=== PATIENT | female | born 1960 | race Caucasian/White ===

== ENCOUNTER 2021-04-25 10:18 | Outpatient (REF) | payer MEDICARE, MEDICAID, SELFPAY ==
[2021-04-25 10:21] LABS: MANUAL DIFF FLAG NO
[2021-04-25 10:53] LABS: Basophils Absolute Auto 0.1 X10*3/uL (0.0-0.2); Basophils Percent Auto 0.9 % (0-2); Eosinophils Absolute Auto 0.1 X10*3/uL (0.0-0.4); Eosinophils Percent Auto 1.5 % (0-4); Hematocrit 44.7 % (37.0-47.0); Hemoglobin 14.6 g/dl (12.0-16.0); Imm Gran Abs Auto 0.02 X10*3/uL (0.00-0.03); Imm Gran Pct Auto 0.3 % (0.0-0.4); Lymphocytes Absolute Auto 1.7 X10*3/uL (1.2-4.9); Lymphocytes Percent Auto 29.9 % (20-40); Mean Corpuscular HGB Conc 32.7 g/dl (31.0-35.0); Mean Corpuscular Hemoglobin 30.9 pg (27.0-33.0); Mean Corpuscular Volume 94.7 fL (80.0-98.0); Mean Platelet Volume 10.3 fL (9.4-12.3); Monocytes Absolute Auto 0.5 X10*3/uL (0.1-1.2); Monocytes Percent Auto 8.6 % (2-11); Neutrophils Absolute Auto 3.4 x10*3/uL (2.0-8.3); Neutrophils Percent Auto 58.8 % (45-73); Platelet Count 296 X10*3/uL (160-400); Red Blood Count 4.72 X10*6/uL (4.20-5.50); Red Cell Distribution Width 12.9 % (11.0-16.0); White Blood Count 5.8 X10*3/uL (4.8-10.8)
[2021-04-25 11:03] LABS: Appearance Urine CLEAR; Color Urine YELLOW; Glucose Urine UA NEG (NEG); Leukocyte Esterase Urine NEG (NEG); Nitrite Urine NEG (NEG); Specific Gravity - Urine 1.025 (1.005-1.025); Urine Blood 2+ (NEG); Urine Ketones NEG (NEG); Urine Protein NEG (NEG-TRACE)
[2021-04-25 11:19] LABS: Mucus Urine 2+ /LPF; Squamous Epithelial Cell Urine 3+ /LPF; WBC Urine 0-2 /HPF (0-4)
[2021-04-25 11:20] LABS: Bacteria Urine 1+ /LPF
[2021-04-25 11:21] LABS: Alanine Aminotransferase 17 U/L (0-31); Albumin Level 4.1 g/dL (3.5-5.0); Alkaline Phosphatase 86 U/L (39-117); Anion Gap 13 (12-20); Aspartate Amino Transferase 19 U/L (5-31); Bilirubin Total 0.5 mg/dL (0.0-1.0); Blood Urea Nitrogen 10 mg/dL (9-16); Calcium 9.6 mg/dL (8.4-10.2); Carbon Dioxide 27 mmol/L (22-29); Chloride 105 mmol/L (96-108); Cholesterol 243 mg/dL; Estimated Glomerular Filt Rate > 60; Glucose Fasting 103 mg/dL (60-99); HDL Cholesterol 59 mg/dL; Iron 69 mcg/dL (30-160); LDL Cholesterol Calculated 165 mg/dl; Percent Iron Saturation 19 % (15-50); Potassium 4.9 mmol/L (3.3-5.1); Sodium 140 mmol/L (135-145); Total Iron Binding Capacity 355 mcg/dL (228-428); Total Protein 6.7 g/dL (6.5-8.0); Triglycerides 99 mg/dL; Unsaturated Iron Binding 286 ug/dL
== END 2021-04-25 10:19 | disposition home or self-care (01) ==
LOC: HO.LNP 10:18
PROVIDERS: PCP Internal Medicine; Visit Provider Internal Medicine
DX: D50.9 Iron deficiency anemia, unspecified (principal); J45.21 Mild intermittent asthma with (acute) exacerbation; G25.0 Essential tremor; M85.80 Other specified disorders of bone density and structure, unspecified site
CPT/HCPCS: 80053; 80061; 81001; 81003; 83540; 85025

== ENCOUNTER 2021-08-10 12:23 | Outpatient (REF) | payer MEDICARE, MEDICAID, SELFPAY ==
--- NOTE | ~2021-08-10 | MM_ITS ---
EXAMINATION: BONE DENSITOMETRY CLINICAL INDICATION: History of osteopenia. Other specified disorders of bone density and structure. Postmenopausal. COMPARISON: Baseline BD dated 10/23/2018. TECHNIQUE: Using a [employer] DXA System (software version: 13.1) manufactured by [employer], dual-energy x-ray absorptiometry was performed of the lumbar spine and left hip. The images are of good technical quality. Summary results are attached. FINDINGS: AP SPINE L1-L4: Current: BMD 0.939 g/cm2, Z-score -0.6, T-score -2.0, osteopenia, 4.6% decrease from baseline (<5% change is not significant). Baseline: BMD 0.984 g/cm2. LEFT FEMUR, NECK: Current: BMD 0.696 g/cm2, Z-score -1.1, T-score -2.5, osteoporosis. Baseline: BMD 0.768 g/cm2. LEFT FEMUR, TOTAL: Current: BMD 0.807 g/cm2, Z-score -0.6, T-score -1.6, osteopenia, 7.1% decrease from baseline (<5% change is not significant). Baseline: BMD 0.869 g/cm2. IDENTIFIED RISK FACTORS: Tobacco user, (current smoker). Low calcium intake. History of fracture, (adult). Menopause. HISTORY OF FRACTURE: Other fractures, (ribs). MEDICATIONS: None listed. MM/XR DEXA axial skeleton IMPRESSION: 1. DIAGNOSIS: Osteoporosis based on the lowest T-score value of -2.5 in the femoral neck applying World Health Organization criteria. 2. 10-YEAR FRACTURE RISK PREDICTION, FRAX: According to the guidelines, FRAX calculation should only be performed on patients in the osteopenia bone density category. Therefore, FRAX was not performed on this patient. 3. Treatment Recommendations: NOF guidelines recommend consideration for treatment in postmenopausal women and men age 50 and older presenting with the following: -A hip or vertebral (clinical or morphometric) fracture. -T-score less than or equal to -2.5 at the femoral neck or spine after appropriate evaluation to exclude secondary causes. -Low bone mass at the hip or spine and a 10-year fracture probability by FRAX of greater than or equal to 3% for hip fracture or greater than or equal to 20% for major osteoporotic fracture based on the [place] adapted WHO algorithm. 4. Other Recommendations: All treatment decisions require clinical judgment and consideration of individual patient factors, including patient preferences, comorbidities, previous drug use, risk factors not captured in the FRAX model (e.g. frailty, falls, vitamin D deficiency, increased bone turnover, interval significant decline in bone density) and possible under or overestimation of fracture risk by FRAX. Additional medical evaluation for secondary cause of low bone mineral density may be appropriate. FUTURE SCAN RECOMMENDATION: People with diagnosed cases of osteoporosis or at high risk for fracture should have regular bone mineral density tests. For patients eligible for Medicare, routine testing is allowed once every 2 years. The testing frequency can be increased to one year for patients who have rapidly progressing disease, those who are receiving or discontinuing medical therapy to restore bone mass, or have additional risk factors.
--- NOTE | ~2021-08-10 | MM_ITS ---
EXAMINATION: MM SCREENING DIGITAL BREAST TOMOSYNTHESIS, BILATERAL CLINICAL INFORMATION: Screening. Asymptomatic. The lifetime risk of breast cancer based on the Tyrer-Cuzick Model is 8%. COMPARISON: Mammography: 10/23/2018, 02/18/2015 TECHNIQUE: Digital breast tomosynthesis is performed in both the craniocaudal and mediolateral oblique views along with computer-aided detection (CAD). Synthesized 2D images are generated from the tomosynthesis. FINDINGS: There are scattered areas of fibroglandular density (ACR BI-RADS breast composition Category b). There are no significant masses, abnormal calcifications, or other abnormalities. Parenchymal pattern is similar to prior studies. The axilla and skin contours are unremarkable. MM/MM tomosynthesis screening BI IMPRESSION: No mammographic evidence of malignancy. ASSESSMENT: BI-RADS 1: Negative RECOMMENDATION: Routine annual mammography screening. This patient's information was entered into a reminder system with a target due date for their next mammogram.
== END 2021-08-10 12:24 | disposition home or self-care (01) ==
LOC: HO.MAMMO 12:23
PROVIDERS: PCP Internal Medicine; Visit Provider Internal Medicine
DX: Z12.31 Encounter for screening mammogram for malignant neoplasm of breast (principal); Z13.820 Encounter for screening for osteoporosis; Z78.0 Asymptomatic menopausal state; F17.200 Nicotine dependence, unspecified, uncomplicated; M81.0 Age-related osteoporosis without current pathological fracture; Z87.81 Personal history of (healed) traumatic fracture
CPT/HCPCS: 77063; 77067; 77080

== ENCOUNTER 2021-10-13 12:02 | Outpatient (REF) | payer MEDICARE, MEDICAID, SELFPAY ==
[2021-10-13 12:04] LABS: MANUAL DIFF FLAG NO
[2021-10-13 12:10] LABS: Basophils Absolute Auto 0.1 X10*3/uL (0.0-0.2); Basophils Percent Auto 1.1 % (0-2); Eosinophils Absolute Auto 0.1 X10*3/uL (0.0-0.4); Eosinophils Percent Auto 2.6 % (0-4); Hematocrit 43.6 % (37.0-47.0); Hemoglobin 14.1 g/dl (12.0-16.0); Imm Gran Abs Auto 0.03 X10*3/uL (0.00-0.03); Imm Gran Pct Auto 0.5 % (0.0-0.4); Lymphocytes Absolute Auto 1.8 X10*3/uL (1.2-4.9); Lymphocytes Percent Auto 33.4 % (20-40); Mean Corpuscular HGB Conc 32.3 g/dl (31.0-35.0); Mean Corpuscular Hemoglobin 31.3 pg (27.0-33.0); Mean Corpuscular Volume 96.9 fL (80.0-98.0); Mean Platelet Volume 10.2 fL (9.4-12.3); Monocytes Absolute Auto 0.6 X10*3/uL (0.1-1.2); Monocytes Percent Auto 10.8 % (2-11); Neutrophils Absolute Auto 2.8 x10*3/uL (2.0-8.3); Neutrophils Percent Auto 51.6 % (45-73); Platelet Count 268 X10*3/uL (160-400); Red Cell Distribution Width 13.4 % (11.0-16.0); White Blood Count 5.5 X10*3/uL (4.8-10.8)
[2021-10-13 12:27] LABS: Iron 74 mcg/dL (30-160); Percent Iron Saturation 22 % (15-50); Total Iron Binding Capacity 342 mcg/dL (228-428); Unsaturated Iron Binding 268 ug/dL
== END 2021-10-13 12:03 | disposition home or self-care (01) ==
LOC: HO.LNP 12:02
PROVIDERS: Visit Provider Internal Medicine
DX: Z13.89 Encounter for screening for other disorder (principal)
CPT/HCPCS: 83540; 85025

== ENCOUNTER → 2021-11-09 09:27 | Outpatient (BNVA) | payer MEDICARE, MEDICAID, SELFPAY | PROVIDERS: PCP Internal Medicine; Referring Provider Internal Medicine; Visit Provider Internal Medicine Gastroenterology | DX: K57.92 Diverticulitis of intestine, part unspecified, without perforation or abscess without bleeding (principal); K58.9 Irritable bowel syndrome, unspecified; Z87.19 Personal history of other diseases of the digestive system; Z98.890 Other specified postprocedural states | CPT/HCPCS: 99202 ==

== ENCOUNTER → 2021-11-17 11:25 | Outpatient (BNVA) | payer MEDICARE, MEDICAID, SELFPAY | PROVIDERS: PCP Internal Medicine; Visit Provider Internal Medicine Endocrinology, Diabetes & Metabolism | DX: M81.0 Age-related osteoporosis without current pathological fracture (principal); D35.00 Benign neoplasm of unspecified adrenal gland | CPT/HCPCS: 99202 ==

== ENCOUNTER 2021-12-06 12:35 | Outpatient (REF) | payer OTHER, MEDICAID, SELFPAY ==
[2021-12-06 13:18] LABS: Anion Gap 13 (12-20); Blood Urea Nitrogen 8 mg/dL (9-16); Calcium 9.2 mg/dL (8.4-10.2); Carbon Dioxide 25 mmol/L (22-29); Chloride 104 mmol/L (96-108); Estimated Glomerular Filt Rate > 60; Glucose Random 98 mg/dL (60-115); Phosphorus 4.1 mg/dL (2.7-4.5); Potassium 4.3 mmol/L (3.3-5.1); Sodium 138 mmol/L (135-145)
[2021-12-06 13:40] LABS: Free T4 (Free Thyroxine) 0.92 ng/dL (0.71-1.85); Thyroid Stimulating Hormone 2.58 uIU/mL (0.32-4.0)
[2021-12-06 14:23] LABS: Cortisol Random 5.1 ug/dL
[2021-12-08 07:26] LABS: DHEA Sulfate 234 mcg/dL (9-118)
[2021-12-09 10:16] LABS: Prot Elec - Albumin 4.3 g/dL (3.8-4.8); Prot Elec - Alpha1 0.3 g/dL (0.2-0.3); Prot Elec - Alpha2 0.8 g/dL (0.5-0.9); Prot Elec - Beta 1 0.4 g/dL (0.4-0.6); Prot Elec - Beta 2 0.3 g/dL (0.2-0.5); Prot Elec - Gamma 0.8 g/dL (0.8-1.7); Prot Elec - Total Protein 6.9 g/dL (6.1-8.1)
[2021-12-12 09:32] LABS: Metanephrine, Free 34 pg/mL (<=57); Normetanephrines, Free 76 pg/mL (<=148); Total Metanephrine, Free 110 pg/mL (<=205)
== END 2021-12-06 12:36 | disposition home or self-care (01) ==
LOC: HO.LAB 12:35
PROVIDERS: PCP Internal Medicine; Visit Provider Internal Medicine Endocrinology, Diabetes & Metabolism
DX: M81.0 Age-related osteoporosis without current pathological fracture (principal); D35.00 Benign neoplasm of unspecified adrenal gland
CPT/HCPCS: 80048; 82533; 82627; 83835; 84100; 84165; 84439; 84443; 86335

== ENCOUNTER 2021-12-11 08:36 | Outpatient (REF) | payer OTHER, MEDICAID, SELFPAY ==
[2021-12-11 10:09] LABS: Total Volume 24 Hour Urine 725 mL
[2021-12-11 10:20] LABS: Creatinine, 24Hr Urine 0.6 G/Day (1.0-2.0); Creatinine, mg/dL 87.45
[2021-12-13 18:21] LABS: Calcium, 24 Hr Urine 72 mg/24 h; Calcium/Creatinine Ratio 114 mg/g creat (30-275); Creatinine 24Hr Urine 0.63 g/24 h (0.50-2.15)
[2021-12-20 14:56] LABS: Dexamethasone 430 ng/dL
== END 2021-12-11 08:37 | disposition home or self-care (01) ==
LOC: HO.LAB 08:36
PROVIDERS: PCP Internal Medicine; Referring Provider Urology; Visit Provider Internal Medicine Endocrinology, Diabetes & Metabolism
DX: M81.0 Age-related osteoporosis without current pathological fracture (principal); D35.00 Benign neoplasm of unspecified adrenal gland
CPT/HCPCS: 36415; 80299; 82340; 82570

== ENCOUNTER 2021-12-13 10:00 | Outpatient (REF) | payer OTHER, MEDICAID, SELFPAY ==
--- NOTE | ~2021-12-13 | CT_ITS ---
EXAMINATION: CT ABDOMEN WITHOUT CONTRAST CLINICAL INFORMATION: Benign adrenal neoplasm. COMPARISON: Abdominal ultrasound dated 08/08/2017. TECHNIQUE: Contiguous axial thin section helical images of the abdomen were performed without contrast. The data set was reformatted in the coronal and sagittal planes and reviewed on an independent workstation. This CT examination was performed using dose optimization techniques as appropriate, variously including the following: *Automated exposure control *Adjustment of mA and/or kV according to patient size (this includes techniques or standardized protocols for targeted exams where dose is matched to indication/reason for exam; i.e. extremities or head) *Use of iterative reconstruction technique DLP: 282 mGy-cm FINDINGS: LUNG BASES: The visualized lung bases are unremarkable. LIVER, GALLBLADDER, AND BILIARY TREE: The liver is normal in size, shape, and attenuation. No focal hepatic lesion or biliary ductal dilatation is present. The gallbladder is unremarkable with no evidence of radiopaque gallstones, gallbladder wall thickening, or obvious pericholecystic inflammatory changes. PANCREAS: Unremarkable SPLEEN: Unremarkable ADRENAL GLANDS: Centrally within the right adrenal gland (3:11), there is a 1.0 x 1.0 cm nodule, with precontrast Hounsfield value of -23.7 units. Within the anterior limb of the left adrenal gland (3:13), there is a 1.3 x 0.9 cm nodule, with precontrast Hounsfield value of -8.7 units. KIDNEYS AND URETERS: The kidneys are normal in size, shape, and attenuation. No hydronephrosis, hydroureter, or calculi seen. No perinephric stranding. GASTROINTESTINAL TRACT: Mild distal esophageal wall thickening is questioned. The small and large bowel are unremarkable. The appendix is unremarkable. ABDOMINAL WALL: There is a tiny fat-containing umbilical hernia. LYMPH NODES: Normal VASCULAR: There is moderate aortoiliac atherosclerotic calcification. No abdominal aortic aneurysm is seen. OSSEOUS STRUCTURES: Unremarkable CT/CT abdomen wo con IMPRESSION: 1. Tiny benign, fat-containing bilateral adrenal adenomas are noted, as detailed above. No imaging follow-up is recommended. 2. There is equivocal distal esophageal wall thickening. If of continued clinical concern, this could be further evaluated with a barium swallow. Fleischner guidelines were followed.
== END 2021-12-13 10:01 | disposition home or self-care (01) ==
LOC: HO.CT 10:00
PROVIDERS: PCP Internal Medicine; Visit Provider Internal Medicine Endocrinology, Diabetes & Metabolism
DX: D35.00 Benign neoplasm of unspecified adrenal gland (principal)
CPT/HCPCS: 74150

== ENCOUNTER 2022-01-01 11:00 | Day surgery (SDC) | payer OTHER, MEDICAID, SELFPAY ==
[2021-12-26 14:36] VITALS: BMI 26.4
--- NOTE | 2021-12-29 10:18 | HO.ANESPROP2 ---
Documented by User: Thuy Christiansen NP 12/29/21 10:19 HPI - Anesthesia Eval Consult details Narrative: 61yo F for Upper Endoscopy and Colonoscopy PMFSH Active Problems Active Problems: All Active Problems (Updated 12/26/21 @ 14:34 by Riri Salazar RN) Acute diverticulitis (Acute) IBS (irritable bowel syndrome) (Acute) Past Medical History Medical History Asthma Essential tremor GERD (gastroesophageal reflux disease) Hx of complications due to general anesthesia Osteopenia RLS (restless legs syndrome) Family History Family History Father HTN (hypertension) Mother Diabetes Cancer Surgical History Surgical History History of esophagogastroduodenoscopy (EGD) History of meniscectomy of left knee History of repair of hiatal hernia Hx of arthroscopy Hx of carpal tunnel repair Hx of colonoscopy Social History Social History (Updated 01/01/22 @ 13:[address] MD) Household Members: Spouse and Children Alcohol intake: current Alcohol intake frequency: a few times a month Patient Tobacco Use Status: Current everyday Tobacco user Tobacco use type: Cigarette Cigarette Packs Per Day: 0.75 Cigarettes Per Day: 15 Smoked in Last 30 Days: Yes Use of substances other than those prescribed or required for medical reasons: No Are you DNR?: No Advance Directives: No Advance Directives Information Provided: Yes Meds Allergies Allergy/AdvReac Type Severity Reaction Status Date / Time iron [From VENOFER] Allergy Severe SWELLING Verified 11/17/21 11:33 iron infusion Allergy Severe hives Uncoded 12/26/21 14:26 Home Medications Medication Instructions Recorded Confirmed Last Taken Type albuterol sulfate 90 mcg/actuation 2 puff PO Q4H PRN Shortness Of 11/09/21 12/26/21 Unknown History aerosol inhaler (Ventolin HFA) Breath clonazepam 0.5 mg tablet 0.5 mg PO BID PRN Anxiety 11/09/21 12/26/21 Unknown History fluticasone furoate 200 1 ea inhalation DAILY 11/09/21 12/26/21 Unknown History mcg-vilanterol 25 mcg/dose inhalation powder (Breo Ellipta) gabapentin 300 mg capsule 300 mg PO BEDTIME 11/09/21 12/26/21 Unknown History ropinirole 1 mg tablet 1 mg PO TID 11/09/21 12/26/21 01/01/22 History Exam Exam Date and Time: December 29, 2021 1018 Height,Weight and Vital Signs: Height 5 ft Weight 61.235 kg Pertinent Lab Results Pertinent Lab Results: Laboratory Tests 10/13/21 12/06/21 07:30 12:51 WBC 5.5 Hgb 14.1 Hct 43.6 Plt Count 268 Sodium 138 Potassium 4.3 Chloride 104 Carbon Dioxide 25 BUN 8 L Creatinine 0.69 Assessment and Plan Assessment Anesthesia Assessment: Chart Reviewed Documented by User: Maxine Street MD 01/01/22 13:35 PMF Active Problems Active Problems: All Active Problems (Updated 12/26/21 @ 14:34 by Riri Salazar RN) Acute diverticulitis (Acute) IBS (irritable bowel syndrome) (Acute) Smoker Gerd, no meds since ?paraesophageal hernia repair Past Medical History Medical History Asthma Essential tremor GERD (gastroesophageal reflux disease) Hx of complications due to general anesthesia Osteopenia RLS (restless legs syndrome) Family History Family History Father HTN (hypertension) Mother Diabetes Cancer Family history of problems with anesthesia: No Surgical History Surgical History History of esophagogastroduodenoscopy (EGD) History of meniscectomy of left knee History of repair of hiatal hernia Hx of arthroscopy Hx of carpal tunnel repair Hx of colonoscopy History of Problems with Anesthesia: Yes (Slow awakening) Social History Social History (Updated 01/01/22 @ 13:[address] MD) Household Members: Spouse and Children Alcohol intake: current Alcohol intake frequency: a few times a month Patient Tobacco Use Status: Current everyday Tobacco user Tobacco use type: Cigarette Cigarette Packs Per Day: 0.75 Cigarettes Per Day: 15 Smoked in Last 30 Days: Yes Use of substances other than those prescribed or required for medical reasons: No Are you DNR?: No Advance Directives: No Advance Directives Information Provided: Yes Meds Allergies Allergy/AdvReac Type Severity Reaction Status Date / Time iron [From VENOFER] Allergy Severe SWELLING Verified 11/17/21 11:33 iron infusion Allergy Severe hives Uncoded 12/26/21 14:26 Home Medications Medication Instructions Recorded Confirmed Last Taken Type albuterol sulfate 90 mcg/actuation 2 puff PO Q4H PRN Shortness Of 11/09/21 12/26/21 Unknown History aerosol inhaler (Ventolin HFA) Breath clonazepam 0.5 mg tablet 0.5 mg PO BID PRN Anxiety 11/09/21 12/26/21 Unknown History fluticasone furoate 200 1 ea inhalation DAILY 11/09/21 12/26/21 Unknown History mcg-vilanterol 25 mcg/dose inhalation powder (Breo Ellipta) gabapentin 300 mg capsule 300 mg PO BEDTIME 11/09/21 12/26/21 Unknown History ropinirole 1 mg tablet 1 mg PO TID 11/09/21 12/26/21 01/01/22 History Exam Height,Weight and Vital Signs: Height 5 ft Weight 61.235 kg Vital Signs Temp Pulse Resp BP Pulse Ox O2 Del Method 97.5 F 76 18 136/76 97 01/01/22 11:14 01/01/22 11:14 01/01/22 11:14 01/01/22 11:14 01/01/22 11:14 01/01/22 11:14 Airway Mallampati Class: II TM Dist: >3cm Neck ROM: Full Loose/Missing/Broken Teeth: No (Denies loose or broken teeth) Heart: RRR Lungs: Wheezes Right lung. Denies recent cough/cold Other: Lungs CTAB following duoneb treatment Assessment and Plan Assessment Anesthesia Assessment: Anesthesia Plan Discussed Final Anesthetic Review Family History of Problems with Anesthesia: No History of Problems with Anesthesia: Yes (Slow awakening) Patient Risk: Intermediate Procedure Risk: Low Assessment/Block/Sedation in SS: Assess/Block/Sedation-SS Documented by User: Carmella Conley MD 01/01/22 12:59 PMFSH Past Medical History Medical History Asthma Essential tremor GERD (gastroesophageal reflux disease) Hx of complications due to general anesthesia Osteopenia RLS (restless legs syndrome) Family History Family History Father HTN (hypertension) Mother Diabetes Cancer Surgical History Surgical History History of esophagogastroduodenoscopy (EGD) History of meniscectomy of left knee History of repair of hiatal hernia Hx of arthroscopy Hx of carpal tunnel repair Hx of colonoscopy Social History Social History (Updated 01/01/22 @ 13:[address] MD) Household Members: Spouse and Children Alcohol intake: current Alcohol intake frequency: a few times a month Patient Tobacco Use Status: Current everyday Tobacco user Tobacco use type: Cigarette Cigarette Packs Per Day: 0.75 Cigarettes Per Day: 15 Smoked in Last 30 Days: Yes Use of substances other than those prescribed or required for medical reasons: No Are you DNR?: No Advance Directives: No Advance Directives Information Provided: Yes Meds Allergies Allergy/AdvReac Type Severity Reaction Status Date / Time iron [From VENOFER] Allergy Severe SWELLING Verified 11/17/21 11:33 iron infusion Allergy Severe hives Uncoded 12/26/21 14:26 Home Medications Medication Instructions Recorded Confirmed Last Taken Type albuterol sulfate 90 mcg/actuation 2 puff PO Q4H PRN Shortness Of 11/09/21 12/26/21 Unknown History aerosol inhaler (Ventolin HFA) Breath clonazepam 0.5 mg tablet 0.5 mg PO BID PRN Anxiety 11/09/21 12/26/21 Unknown History fluticasone furoate 200 1 ea inhalation DAILY 11/09/21 12/26/21 Unknown History mcg-vilanterol 25 mcg/dose inhalation powder (Breo Ellipta) gabapentin 300 mg capsule 300 mg PO BEDTIME 11/09/21 12/26/21 Unknown History ropinirole 1 mg tablet 1 mg PO TID 11/09/21 12/26/21 01/01/22 History Assessment and Plan Final Anesthetic Review NPO: Yes ASA Class: II Final Preanesthetic Review: Meds/Allgs Chart Reviewed, Consent Obtained/Reviewed and Anes Risks/Benef Reviewed Patient Risk: Low Procedure Risk: Intermediate Anesthetic Plan Anesthetic Plan: MAC: Disposition: Standard PACU
[2022-01-01 11:14] VITALS: BP 136/76; PULSE 76; RESP 18; TEMP 36.4; O2SAT 97
[2022-01-01] MEDS: Lactated Ringers 1,000 ML 100 ML IVCONT (11:33)
--- NOTE | 2022-01-01 11:55 | MHC.SHP ---
Pre-Procedural Eval Section A Date of Service: 01/01/22 The patient is an INPATIENT: No The History & Physical has been completed within 30 days and I have reviewed it.: No Section B Chief Complaint: Diverticulitis of intestine,IBS Details of Present Illness: Colon cancer screen, passed episode of diverticulitis, abnormal CT scan of the stomach Relevant Social History: Tobacco Use Medical History: Significant History (GERD, asthma, RLS) History of Previous Operations: Relevant previous surgery/procedure and date(s) (History of esophagogastroduodenoscopy (EGD) History of meniscectomy of left knee History of repair of hiatal hernia Hx of arthroscopy Hx of carpal tunnel repair Hx of colonoscopy) Allergies: Allergies Allergy/AdvReac Type Severity Reaction Status Date / Time iron [From VENOFER] Allergy Severe SWELLING Verified 11/17/21 11:33 iron infusion Allergy Severe hives Uncoded 12/26/21 14:26 Review of Systems Sugical H&P ROS: Negative: Constitution, Cardiovascular, Respiratory and Gastrointestinal Exam Surgical H&P Exam: Normal: Heart, Normal: Lungs, Normal: Extremities and Normal: Abdomen Plan Diagnosis/Plan: Unchanged I have reviewed the history and physical and performed a pertinent physical examination on my patient. No changes have occurred unless specified.
--- NOTE | 2022-01-01 12:13 | PM.OP ---
Brief Operative Note Date of Service: 01/01/22 Pre-op diagnosis: Colon cancer screening, past episode of diverticulitis, abnormal CT scan of the stomach and esophagus Post-op diagnosis: other (GERD, gastritis, colon polyps, diverticulosis, hemorrhoids) Procedure: FLEXIBLE TRANSORAL UPPER GASTROINTESTINAL ENDOSCOPY WITH BIOPSIES AND COLONOSCOPY TILL CECUM WITH BIOPSIES, SNARE POLYPECTOMY, SUBMUCOSAL INJECTION, HEMOCLIP PLACEMENT UPPER ENDOSCOPY Consent: Indications for the procedure and potential complications of bleeding, perforation, reaction to medications and missed diagnosis were discussed with the patient and informed consent was obtained. Instrument: Olympus GIF H 190 mid size upper endoscope Monitoring: Vital signs and clinical assessment, continuous EKG monitoring, Pulse oximetry, Carbon Dioxide monitoring and blood pressure monitoring were done throughout the procedure. Procedure: The patient was placed in the left lateral decubitis position and pre-procedure medications were administered and a bite block was placed. The endoscope was inserted into the mouth and advanced under direct vision to the third part of duodenum. A careful inspection was made as the upper endoscope was withdrawn including a retroflexed examination of the proximal stomach; Findings and interventions are described below. Findings: Larynx: Normal Esophagus: GE junction at 35 cms. Irregular Z line with two healing erosions and a 1 cms tongue of possible Cole's - biopsied Stomach: Moderate gastric erythema. Biopsies were obtained. Grade 2 flap valve on retroflexed examination of the cardia. Duodenum: Mild duodenitis in the apex of the bulb and normal descending duodenum Intervention: Biopsies as noted above COLONOSCOPY PROCEDURE NOTE Consent: Indications for the procedure and potential complications of bleeding, perforation, reaction to medications and missed diagnosis were discussed with the patient and informed consent was obtained. Instrument: Olympus PCF H 190 L variable stiffness pediatric colonoscope Monitoring: Vital signs and clinical assessment, intermittent blood pressure monitoring, continuous EKG monitoring, Pulse oximetry and Carbon Dioxide monitoring were done throughout the procedure. Colon withdrawl time was 35 minutes. Procedure: The patient was placed in the left lateral decubitis position and pre-procedure medications were administered. After a digital rectal examination of the ano-rectum, the video colonoscope was inserted into the rectum and advanced through the colon to the cecum. The colonoscope was slowly withdrawn in a retrograde panoramic fashion and the colon mucosa was carefully examined including a retroflexed view of the rectum. Findings and interventions are described below. Procedure Difficulty: : Colon was long and tortuous and there was spasm and loop formation. No maneuvers were required. Findings: Terminal Ileum: Not evaluated Cecum: Normal Ascending Colon: A 2.5 to 3 cms flat polyp in the proximal AC at 80 cms. Polyp was raised with 7 cc of Orise solution and removed with a stiif snare. Polypectomy site was closed with a hemoclip and marked with Mirna ink. A 2nd 2 cm flat polyp in the mid ascending colon raised with 4 cc of Orise solution and removed with a hot snare. Transverse Colon: Normal Descending Colon: Moderate diverticulosis Sigmoid Colon: Severe diverticulosis with luminal narrowing Rectum: Normal Ano-rectum: Moderate internal hemorrhoids Colon preparation: Good Impression and Post Procedure Diagnosis: Endoscopy Findings: ESOPHAGUS: GE junction at 35 cms. Irregular Z line with two healing erosions and a 1 cms tongue of possible Cole's - biopsied STOMACH: Moderate gastric erythema. Biopsies were obtained. Colonoscopy Findings: Two large to medium sized polyps removed Moderate to severe diverticulosis seen in the left colon Moderate hemorrhoids on retroflexed exam. Plan: Await pathology results Patient to schedule a FU appointment in the GI Clinic with Katia Haji M.D. Repeat Colonoscopy interval based on path results - in 1 year if polyps are adenomatous (to check polypectomy site in the AC) and 10 years if polyps are hyperplastic. Pt needs GA for future colonoscopies since she was difficult to sedate and remained very restless and moved around on the strecher. Above findings were reviewed with the patient and GERD, colon polyps and diverticulosis handouts were given in the discharge area Surgeon: Katia Haji MD Anesthesia: MAC (Dr Conley) Was an Commanding Officer Garage used for this Procedure?: Yes Commanding Officer Garage: Jayden Andersen Estimated blood loss (mL): 0 Pathology: other (A- GASTRIC ANTRUM BXS R/O H. PYLORI B- DISTAL ESOPHAGUS BXS R/O COLE'S C- MID ASCENDING COLON POLYP O-RISE USED D- ASCENDING COLON POLYP AT 80CM O-RISE USED. E- LEFT COLON BXS R/O MICROSCOPIC) Condition: stable Disposition: PACU
[2022-01-01] MEDS: Albuterol/Iprat 2.5/0.5MG 3 ML AMPUL.NEB INHALE (12:14)
--- NOTE | 2022-01-01 12:18 | W.PM.OPN ---
Operative Note Operative Note Date of Service: 01/01/22 Narrative: Pre-op diagnosis: Colon cancer screening, past episode of diverticulitis, abnormal CT scan of the stomach and esophagus Post-op diagnosis:?other (GERD, gastritis, colon polyps, diverticulosis, hemorrhoids) Procedure: FLEXIBLE TRANSORAL UPPER GASTROINTESTINAL ENDOSCOPY WITH BIOPSIES AND COLONOSCOPY TILL CECUM WITH BIOPSIES, SNARE POLYPECTOMY, SUBMUCOSAL INJECTION, HEMOCLIP PLACEMENT UPPER ENDOSCOPY Consent:?Indications for the procedure and potential complications of bleeding, perforation, reaction to medications and missed diagnosis were discussed with the patient and informed consent was obtained. Instrument:?Olympus GIF H 190 mid size upper endoscope Monitoring: Vital signs and clinical assessment, continuous EKG monitoring, Pulse oximetry, Carbon Dioxide monitoring and blood pressure monitoring were done throughout the procedure. Procedure:?The patient was placed in the left lateral decubitis position and pre-procedure medications were administered and a bite block was placed. The endoscope was inserted into the mouth and advanced under direct vision to the third part of duodenum. A careful inspection was made as the upper endoscope was withdrawn including a retroflexed examination of the proximal stomach; Findings and interventions are described below. Findings: Larynx:? Normal Esophagus:?GE junction at 35 cms.? Irregular Z line with two healing erosions and a 1 cms tongue of possible Cole's - biopsied Stomach:?Moderate gastric erythema. Biopsies were obtained. Grade 2 flap valve on retroflexed examination of the cardia. Duodenum:?Mild duodenitis in the apex of the bulb and normal descending duodenum Intervention:?Biopsies as noted above COLONOSCOPY PROCEDURE NOTE Consent:?Indications for the procedure and potential complications of bleeding, perforation, reaction to medications and missed diagnosis were discussed with the patient and informed consent was obtained. Instrument:?Olympus PCF H 190 L variable stiffness pediatric colonoscope Monitoring:?Vital signs and clinical assessment, intermittent blood pressure monitoring, continuous EKG monitoring, Pulse oximetry and Carbon Dioxide monitoring were done throughout the procedure. Colon withdrawl time was 35 minutes. Procedure:?The patient was placed in the left lateral decubitis position and pre-procedure medications were administered. After a digital rectal examination of the ano-rectum, the video colonoscope was inserted into the rectum and advanced through the colon to the cecum. The colonoscope was slowly withdrawn in a retrograde panoramic fashion and the colon mucosa was carefully examined including a retroflexed view of the rectum. Findings and interventions are described below. Procedure Difficulty:?: Colon was long and tortuous and there was spasm and loop formation.? No maneuvers were required. Findings: Terminal Ileum: Not evaluated Cecum:? Normal Ascending Colon:??A 2.5 to 3 cms flat polyp in the proximal AC at 80 cms.? Polyp was raised with 7 cc of Orise solution and removed with a stiif snare.? Polypectomy site was closed with a hemoclip and marked with Mirna ink. A 2nd 2 cm flat polyp in the mid ascending colon raised with 4 cc of Orise solution and removed with a hot snare. Transverse Colon:??Normal Descending Colon:? Moderate diverticulosis Sigmoid Colon:??Severe diverticulosis with luminal narrowing Rectum:??Normal Ano-rectum:??Moderate internal hemorrhoids Colon preparation:? Good? Impression and Post Procedure Diagnosis: Endoscopy Findings: ESOPHAGUS: GE junction at 35 cms.? Irregular Z line with two healing erosions and a 1 cms tongue of possible Cole's - biopsied STOMACH: Moderate gastric erythema. Biopsies were obtained. Colonoscopy Findings: Two large to medium sized polyps removed Moderate to severe diverticulosis seen in the left colon Moderate hemorrhoids on retroflexed exam. Plan: Await pathology results Patient to schedule a FU appointment in the GI Clinic with Katia Haji M.D. Repeat Colonoscopy interval based on path results - in 1 year if polyps are adenomatous (to check polypectomy site in the AC) and 10 years if polyps are hyperplastic. Pt needs GA for future colonoscopies since she was difficult to sedate and remained very restless and moved around on the strecher during the procedure. Above findings were reviewed with the patient and GERD, colon polyps and diverticulosis handouts were given in the discharge area Surgeon: Katia Haji MD Anesthesia:?MAC (Dr Conley) Was an Broker Associate used for this Procedure?:?Yes Broker Associate:?Jayden Andersen Estimated blood loss (mL):?0 Pathology:?other (A- GASTRIC ANTRUM BXS ? R/O H. PYLORI? B- DISTAL ESOPHAGUS BXS? R/O COLE'S? C- MID ASCENDING COLON POLYP? O-RISE USED? D- ASCENDING COLON POLYP AT 80CM? O-RISE USED.? E- LEFT COLON BXS? R/O MICROSCOPIC) Condition:?stable Disposition:?PACU
[2022-01-01 13:26] VITALS: BP 125/66; PULSE 86; RESP 20; TEMP 36.2; O2SAT 99
[2022-01-01 13:41] VITALS: BP 125/69; PULSE 72; RESP 18; O2SAT 97
[2022-01-01 13:56] VITALS: BP 139/71; PULSE 67; RESP 18; TEMP 37; O2SAT 97
[2022-01-01 14:08] VITALS: BP 139/71; PULSE 68; RESP 18; O2SAT 97
== END 2022-01-01 15:27 | disposition home or self-care (01) ==
PROVIDERS: PCP Internal Medicine; Visit Provider Internal Medicine Gastroenterology
PROC: (CPT 45385; principal; 2022-01-01 13:50)
DX: Z12.11 Encounter for screening for malignant neoplasm of colon (principal); D12.2 Benign neoplasm of ascending colon; K57.30 Diverticulosis of large intestine without perforation or abscess without bleeding; K64.8 Other hemorrhoids; K58.9 Irritable bowel syndrome, unspecified; Z87.19 Personal history of other diseases of the digestive system; K29.50 Unspecified chronic gastritis without bleeding; K29.80 Duodenitis without bleeding; K21.9 Gastro-esophageal reflux disease without esophagitis; K44.9 Diaphragmatic hernia without obstruction or gangrene; G25.0 Essential tremor; G25.81 Restless legs syndrome; M85.80 Other specified disorders of bone density and structure, unspecified site; J45.909 Unspecified asthma, uncomplicated; Z79.51 Long term (current) use of inhaled steroids; Z79.899 Other long term (current) drug therapy; Z88.8 Allergy status to other drugs, medicaments and biological substances; Z98.890 Other specified postprocedural states; F17.210 Nicotine dependence, cigarettes, uncomplicated
CPT/HCPCS: 45385; 45380; 45381; 43239; 88305; 88342; J2250; J3010

== ENCOUNTER → 2022-02-08 13:46 | Outpatient (BNVA) | payer OTHER, MEDICAID, SELFPAY | PROVIDERS: PCP Internal Medicine; Referring Provider Internal Medicine; Visit Provider Internal Medicine Gastroenterology | DX: K58.9 Irritable bowel syndrome, unspecified (principal); K57.92 Diverticulitis of intestine, part unspecified, without perforation or abscess without bleeding; K57.30 Diverticulosis of large intestine without perforation or abscess without bleeding; D12.6 Benign neoplasm of colon, unspecified; Z86.010 Personal history of colon polyps; Z98.890 Other specified postprocedural states | CPT/HCPCS: 99212 ==

== ENCOUNTER → 2022-03-16 11:14 | Outpatient (BNVA) | payer OTHER, MEDICAID, SELFPAY | PROVIDERS: PCP Internal Medicine; Visit Provider Internal Medicine Endocrinology, Diabetes & Metabolism | DX: M81.0 Age-related osteoporosis without current pathological fracture (principal); D35.00 Benign neoplasm of unspecified adrenal gland | CPT/HCPCS: 99212 ==

== ENCOUNTER 2022-04-12 11:06 | Outpatient (REF) | payer OTHER, MEDICAID, SELFPAY ==
[2022-04-16 17:41] LABS: Adrenocorticotropic Hormone 27 pg/mL (6-50)
== END 2022-04-12 11:07 | disposition home or self-care (01) ==
LOC: HO.LAB 11:06
PROVIDERS: PCP Internal Medicine; Visit Provider Internal Medicine Endocrinology, Diabetes & Metabolism
DX: D35.00 Benign neoplasm of unspecified adrenal gland (principal)
CPT/HCPCS: 36415; 82024

== ENCOUNTER 2022-04-26 10:35 | Outpatient (REF) | payer OTHER, MEDICAID, SELFPAY ==
[2022-04-26 10:37] LABS: MANUAL DIFF FLAG NO
[2022-04-26 10:49] LABS: Appearance Urine Cloudy; Color Urine Yellow; Glucose Urine UA Negative (Negative); Leukocyte Esterase Urine Negative (Negative); Nitrite Urine Negative (Negative); PH 5.5 (5.0-9.0); Specific Gravity - Urine 1.015 (1.005-1.025); UMIC TRIGGER UA YES; Urine Blood Moderate (2+) (Negative); Urine Ketones Negative (Negative); Urine Protein Negative (Neg-Trace)
[2022-04-26 10:56] LABS: Bacteria Urine 1+ (None Seen); Hyaline Casts Urine 0-2 /LPF (0-2); WBC Urine 0-5 /HPF (0-5)
[2022-04-26 10:57] LABS: Basophils Absolute Auto 0.1 X10*3/uL (0.0-0.2); Basophils Percent Auto 1.5 % (0-2); Eosinophils Absolute Auto 0.1 X10*3/uL (0.0-0.4); Eosinophils Percent Auto 2.5 % (0-4); Hematocrit 42.1 % (37.0-47.0); Hemoglobin 13.9 g/dl (12.0-16.0); Imm Gran Abs Auto 0.02 X10*3/uL (0.00-0.03); Imm Gran Pct Auto 0.4 % (0.0-0.4); Lymphocytes Absolute Auto 1.7 X10*3/uL (1.2-4.9); Lymphocytes Percent Auto 36.1 % (20-40); Mean Platelet Volume 10.1 fL (9.4-12.3); Monocytes Absolute Auto 0.4 X10*3/uL (0.1-1.2); Neutrophils Absolute Auto 2.4 x10*3/uL (2.0-8.3); Neutrophils Percent Auto 50.5 % (45-73); Platelet Count 271 X10*3/uL (160-400); Red Blood Count 4.34 X10*6/uL (4.20-5.50); Red Cell Distribution Width 13.2 % (11.0-16.0); White Blood Count 4.8 X10*3/uL (4.8-10.8)
[2022-04-26 11:12] LABS: Alanine Aminotransferase 14 U/L (0-31); Albumin Level 4.2 g/dL (3.5-5.0); Alkaline Phosphatase 76 U/L (39-117); Anion Gap 10 (12-20); Aspartate Amino Transferase 17 U/L (5-31); Bilirubin Total 0.3 mg/dL (0.0-1.0); Blood Urea Nitrogen 10 mg/dL (9-16); Calcium 9.5 mg/dL (8.4-10.2); Carbon Dioxide 29 mmol/L (22-29); Chloride 102 mmol/L (96-108); Cholesterol 253 mg/dL; Estimated Glomerular Filt Rate > 60; Glucose Fasting 100 mg/dL (60-99); HDL Cholesterol 64 mg/dL; Iron 60 mcg/dL (30-160); LDL Cholesterol Calculated 169 mg/dl; Percent Iron Saturation 19 % (15-50); Potassium 4.5 mmol/L (3.3-5.1); Sodium 136 mmol/L (135-145); Total Iron Binding Capacity 324 mcg/dL (228-428); Total Protein 6.6 g/dL (6.5-8.0); Triglycerides 100 mg/dL; Unsaturated Iron Binding 264 ug/dL
== END 2022-04-26 10:36 | disposition home or self-care (01) ==
LOC: HO.LNP 10:35
PROVIDERS: Visit Provider Internal Medicine
DX: Z00.00 Encounter for general adult medical examination without abnormal findings (principal); D50.8 Other iron deficiency anemias
CPT/HCPCS: 80053; 80061; 81001; 83540; 85025

== ENCOUNTER 2022-07-11 | Outpatient (REF) | payer OTHER, MEDICAID, SELFPAY ==
[2022-07-21 19:03] LABS: Saliva Cortisol 0.15 mcg/dL
== END 2022-07-11 00:01 | disposition home or self-care (01) ==
LOC: HO.LNP
PROVIDERS: Visit Provider Internal Medicine Endocrinology, Diabetes & Metabolism
DX: D35.00 Benign neoplasm of unspecified adrenal gland (principal)
CPT/HCPCS: 82530

== ENCOUNTER 2022-07-12 09:22 | Outpatient (REF) | payer OTHER, MEDICAID, SELFPAY ==
[2022-07-12 09:55] LABS: Total Volume 24 Hour Urine 1700 mL
[2022-07-12 11:21] LABS: Creatinine, 24Hr Urine 0.8 G/Day (1.0-2.0); Creatinine, mg/dL 49.51
[2022-07-22 14:54] LABS: Cortisol Free, 24 Hr Urine 18.4 mcg/24 h (4.0-50.0); Creatinine, 24 Hr Urine 0.89 g/24 h (0.50-2.15); Total Volume, 24 Hr Urine 1700 mL
== END 2022-07-12 09:23 | disposition home or self-care (01) ==
LOC: HO.LNP 09:22
PROVIDERS: Visit Provider Internal Medicine Endocrinology, Diabetes & Metabolism
DX: D35.00 Benign neoplasm of unspecified adrenal gland (principal)
CPT/HCPCS: 82530; 82570

== ENCOUNTER → 2022-07-18 11:37 | Outpatient (BNVA) | payer OTHER, MEDICAID, SELFPAY | PROVIDERS: PCP Internal Medicine; Visit Provider Internal Medicine Endocrinology, Diabetes & Metabolism | DX: M81.0 Age-related osteoporosis without current pathological fracture (principal); D35.01 Benign neoplasm of right adrenal gland; D35.02 Benign neoplasm of left adrenal gland | CPT/HCPCS: 99212 ==

== ENCOUNTER → 2022-08-09 10:58 | Outpatient (BNVA) | payer OTHER, MEDICAID, SELFPAY | PROVIDERS: PCP Internal Medicine; Visit Provider Internal Medicine Gastroenterology | DX: K58.9 Irritable bowel syndrome, unspecified (principal); K57.92 Diverticulitis of intestine, part unspecified, without perforation or abscess without bleeding; Z86.010 Personal history of colon polyps | CPT/HCPCS: 99212 ==

== ENCOUNTER 2022-08-16 11:53 | Outpatient (REF) | payer OTHER, MEDICAID, SELFPAY ==
--- NOTE | ~2022-08-16 | MM_ITS ---
EXAMINATION: MM SCREENING DIGITAL BREAST TOMOSYNTHESIS, BILATERAL CLINICAL INFORMATION: Screening. Asymptomatic. The lifetime risk of breast cancer based on the Tyrer-Cuzick Model is 8.3%. COMPARISON: Mammography: August 10, 2021 and studies dating back to February 18, 2015 TECHNIQUE: Digital breast tomosynthesis is performed in both the craniocaudal and mediolateral oblique views along with computer-aided detection (CAD). Synthesized 2D images are generated from the tomosynthesis. FINDINGS: There are scattered areas of fibroglandular density (ACR BI-RADS breast composition Category b). There are no significant masses, abnormal calcifications, or other abnormalities. MM/MM tomosynthesis screening BI IMPRESSION: No significant changes from prior exam. ASSESSMENT: BI-RADS 1: Negative RECOMMENDATION: Routine annual mammography screening. This patient's information was entered into a reminder system with a target due date for their next mammogram.
== END 2022-08-16 11:54 | disposition home or self-care (01) ==
LOC: HO.MAMMO 11:53
PROVIDERS: PCP Internal Medicine; Visit Provider Internal Medicine
DX: Z12.31 Encounter for screening mammogram for malignant neoplasm of breast (principal)
CPT/HCPCS: 77063; 77067

== ENCOUNTER 2022-11-02 15:30 | Outpatient (REF) | payer OTHER, MEDICAID, SELFPAY ==
--- NOTE | ~2022-11-02 | US_ITS ---
EXAMINATION: US SOFT TISSUE LEFT WRIST CLINICAL INFORMATION: Left wrist contusion. COMPARISON: None TECHNIQUE: Linear transducer grayscale and color Doppler examination with attention to the region of the left wrist soft tissues. FINDINGS: No cystic or solid abnormality is seen. No focal fluid collection. The radial and ulnar veins are compressible. US/US extremity nonvascular IMPRESSION: 1. No soft tissue abnormality in the region of concern in the left wrist. If these findings persist or enlarge, short-term repeat targeted soft tissue ultrasound can be performed as clinically indicated to assess for change.
== END 2022-11-02 15:31 | disposition home or self-care (01) ==
LOC: HO.US 15:30
PROVIDERS: PCP Internal Medicine; Visit Provider Internal Medicine
DX: S60.212D Contusion of left wrist, subsequent encounter (principal); T14.8XXD Other injury of unspecified body region, subsequent encounter
CPT/HCPCS: 76882

== ENCOUNTER → 2022-11-14 11:39 | Outpatient (BNVA) | payer OTHER, MEDICAID, SELFPAY | PROVIDERS: PCP Internal Medicine; Visit Provider Internal Medicine Endocrinology, Diabetes & Metabolism | DX: M81.0 Age-related osteoporosis without current pathological fracture (principal); D35.00 Benign neoplasm of unspecified adrenal gland | CPT/HCPCS: 99212 ==

== ENCOUNTER 2023-01-07 06:28 | Day surgery (SDC) | payer OTHER, MEDICAID, SELFPAY ==
[2023-01-03 10:21] VITALS: BMI 25.5
--- NOTE | 2023-01-04 11:39 | HO.ANESPROP2 ---
Documented by User: Thuy Christiansen NP 01/04/23 11:40 HPI - Anesthesia Eval Consult details Narrative: 62yo F for Upper Endoscopy and Colonoscopy PMFSH Active Problems Active Problems: All Active Problems (Updated 08/09/22 @ 11:24 by Katia Haji MD) Acute diverticulitis (Acute) IBS (irritable bowel syndrome) (Acute) History of colon polyps (Acute) Vitamin D deficiency (Acute) Adrenal adenoma (Acute) Past Medical History Medical History Adrenal adenoma Asthma Essential tremor GERD (gastroesophageal reflux disease) Hx of complications due to general anesthesia Osteopenia RLS (restless legs syndrome) Family History Family History Father HTN (hypertension) Mother Diabetes Cancer Family history of problems with anesthesia: No Surgical History Surgical History (Updated 01/03/23 @ 10:00 by Riri Salazar RN) History of esophagogastroduodenoscopy (EGD) History of meniscectomy of left knee History of repair of hiatal hernia Hx of arthroscopy Hx of carpal tunnel repair Hx of colonoscopy History of Problems with Anesthesia: Yes (Slow awakening) Social History Social History Household Members: Spouse and Children Alcohol intake: current Alcohol intake frequency: holidays/special occasions only Patient Tobacco Use Status: Current everyday Tobacco user Tobacco use type: Cigarette Cigarette Packs Per Day: 0.75 Cigarettes Per Day: 15 Are you DNR?: No Advance Directives: No Advance Directives Information Provided: Yes Nutrition Risks: No Nutritional Risk Patient : No Meds Allergies Allergy/AdvReac Type Severity Reaction Status Date / Time iron [From VENOFER] Allergy Severe SWELLING Verified 11/14/22 11:43 iron infusion Allergy Severe hives Uncoded 11/14/22 11:43 Home Medications Medication Instructions Recorded Confirmed Last Taken Type albuterol sulfate 90 mcg/actuation 2 puff PO Q4H PRN Shortness Of 11/09/21 01/03/23 Unknown History aerosol inhaler (Ventolin HFA) Breath clonazepam 0.5 mg tablet 0.5 mg PO BID PRN Anxiety 11/09/21 01/03/23 Unknown History gabapentin 300 mg capsule 300 mg PO BEDTIME 11/09/21 01/03/23 Unknown History ropinirole 1 mg tablet 1 mg PO TID 11/09/21 01/03/23 01/07/23 History fluticasone furoate 200 1 ea inhalation DAILY 01/03/23 01/03/23 Unknown History mcg-vilanterol 25 mcg/dose inhalation powder (Breo Ellipta) albuterol sulfate 0.63 mg/3 mL 1 mg inhalation NEEDED PRN 01/07/23 01/07/23 01/07/23 History solution for nebulization Wheezing Exam Exam Date and Time: January 04, 2023 113 Height,Weight and Vital Signs: Height 5 ft 1 in Weight 61.235 kg Assessment and Plan Assessment Anesthesia Assessment: Chart Reviewed Final Anesthetic Review Family History of Problems with Anesthesia: No History of Problems with Anesthesia: Yes (Slow awakening) Documented by User: Dontrell Hernandez MD 01/07/23 07:29 [facility] Past Medical History Medical History Adrenal adenoma Asthma Essential tremor GERD (gastroesophageal reflux disease) Hx of complications due to general anesthesia Osteopenia RLS (restless legs syndrome) Family History Family History Father HTN (hypertension) Mother Diabetes Cancer Surgical History Surgical History (Updated 01/03/23 @ 10:00 by Riri Salazar RN) History of esophagogastroduodenoscopy (EGD) History of meniscectomy of left knee History of repair of hiatal hernia Hx of arthroscopy Hx of carpal tunnel repair Hx of colonoscopy Social History Social History Household Members: Spouse and Children Alcohol intake: current Alcohol intake frequency: holidays/special occasions only Patient Tobacco Use Status: Current everyday Tobacco user Tobacco use type: Cigarette Cigarette Packs Per Day: 0.75 Cigarettes Per Day: 15 Are you DNR?: No Advance Directives: No Advance Directives Information Provided: Yes Nutrition Risks: No Nutritional Risk Patient : No Meds Allergies Allergy/AdvReac Type Severity Reaction Status Date / Time iron [From VENOFER] Allergy Severe SWELLING Verified 11/14/22 11:43 iron infusion Allergy Severe hives Uncoded 11/14/22 11:43 Home Medications Medication Instructions Recorded Confirmed Last Taken Type albuterol sulfate 90 mcg/actuation 2 puff PO Q4H PRN Shortness Of 11/09/21 01/03/23 Unknown History aerosol inhaler (Ventolin HFA) Breath clonazepam 0.5 mg tablet 0.5 mg PO BID PRN Anxiety 11/09/21 01/03/23 Unknown History gabapentin 300 mg capsule 300 mg PO BEDTIME 11/09/21 01/03/23 Unknown History ropinirole 1 mg tablet 1 mg PO TID 11/09/21 01/03/23 01/07/23 History fluticasone furoate 200 1 ea inhalation DAILY 01/03/23 01/03/23 Unknown History mcg-vilanterol 25 mcg/dose inhalation powder (Breo Ellipta) albuterol sulfate 0.63 mg/3 mL 1 mg inhalation NEEDED PRN 01/07/23 01/07/23 01/07/23 History solution for nebulization Wheezing Exam Airway Mallampati Class: II TM Dist: >3cm Neck ROM: Limited Heart: rrr Lungs: cta Assessment and Plan Assessment Anesthesia Assessment: Anesthesia Plan Discussed Final Anesthetic Review ASA Class: II Final Preanesthetic Review: No Changes in Pt Med Stat, Meds/Allgs Chart Reviewed, Consent Obtained/Reviewed and Anes Risks/Benef Reviewed Patient Risk: Intermediate Procedure Risk: Intermediate Anesthetic Plan Anesthetic Plan: MAC: and Agree w/ Assess. and Plan Disposition: Standard PACU
[2023-01-07 06:31] VITALS: BP 134/87; PULSE 78; RESP 20; TEMP 36.6; O2SAT 98
[2023-01-07] MEDS: Lactated Ringers 1,000 ML 50 ML IVCONT (07:25)
--- NOTE | 2023-01-07 07:45 | P.CONAN_ITS ---
Documented by User: Maxine Street MD 01/07/23 09:03 [facility] Active Problems Active Problems: All Active Problems (Updated 01/07/23 @ 11:[address] MD) Acute diverticulitis (Acute) IBS (irritable bowel syndrome) (Acute) History of colon polyps (Acute) Vitamin D deficiency (Acute) Adrenal adenoma (Acute) Past Medical History Medical History Adrenal adenoma Asthma Essential tremor GERD (gastroesophageal reflux disease) Hx of complications due to general anesthesia Osteopenia RLS (restless legs syndrome) Family History Family History Father HTN (hypertension) Mother Diabetes Cancer Surgical History Surgical History History of esophagogastroduodenoscopy (EGD) History of meniscectomy of left knee History of repair of hiatal hernia Hx of arthroscopy Hx of carpal tunnel repair Hx of colonoscopy Social History Social History Household Members: Spouse and Children Alcohol intake: current Alcohol intake frequency: holidays/special occasions only Patient Tobacco Use Status: Current everyday Tobacco user Tobacco use type: Cigarette Cigarette Packs Per Day: 0.75 Cigarettes Per Day: 15 Are you DNR?: No Advance Directives: No Advance Directives Information Provided: Yes Nutrition Risks: No Nutritional Risk Patient : No Meds Allergies Allergy/AdvReac Type Severity Reaction Status Date / Time iron [From VENOFER] Allergy Severe SWELLING Verified 11/14/22 11:43 iron infusion Allergy Severe hives Uncoded 11/14/22 11:43 Home Medications Medication Instructions Recorded Confirmed Last Taken Type albuterol sulfate 90 mcg/actuation 2 puff PO Q4H PRN Shortness Of 11/09/21 01/03/23 Unknown History aerosol inhaler (Ventolin HFA) Breath clonazepam 0.5 mg tablet 0.5 mg PO BID PRN Anxiety 11/09/21 01/03/23 Unknown History gabapentin 300 mg capsule 300 mg PO BEDTIME 11/09/21 01/03/23 Unknown History ropinirole 1 mg tablet 1 mg PO TID 11/09/21 01/03/2301/07/23 History fluticasone furoate 200 1 ea inhalation DAILY 01/03/23 01/03/23 Unknown History mcg-vilanterol 25 mcg/dose inhalation powder (Breo Ellipta) albuterol sulfate 0.63 mg/3 mL 1 mg inhalation NEEDED PRN 01/07/23 01/07/23 01/07/23 History solution for nebulization Wheezing Exam Airway Mallampati Class: II TM Dist: >3cm Neck ROM: Full Documented by User: Carmella Conley MD [facility] Active Problems Active Problems: All Active Problems (Updated 08/09/22 @ 11:24 by Katia Haji MD) Acute diverticulitis (Acute) IBS (irritable bowel syndrome) (Acute) History of colon polyps (Acute) Vitamin D deficiency (Acute) Adrenal adenoma (Acute) Past Medical History Medical History Adrenal adenoma Asthma Essential tremor GERD (gastroesophageal reflux disease) Hx of complications due to general anesthesia Osteopenia RLS (restless legs syndrome) Family History Family History Father HTN (hypertension) Mother Diabetes Cancer Family history of problems with anesthesia: No Surgical History Surgical History History of esophagogastroduodenoscopy (EGD) History of meniscectomy of left knee History of repair of hiatal hernia Hx of arthroscopy Hx of carpal tunnel repair Hx of colonoscopy History of Problems with Anesthesia: Yes (Slow awakening) Social History Social History Household Members: Spouse and Children Alcohol intake: current Alcohol intake frequency: holidays/special occasions only Patient Tobacco Use Status: Current everyday Tobacco user Tobacco use type: Cigarette Cigarette Packs Per Day: 0.75 Cigarettes Per Day: 15 Are you DNR?: No Advance Directives: No Advance Directives Information Provided: Yes Nutrition Risks: No Nutritional Risk Patient : No Meds Allergies Allergy/AdvReac Type Severity Reaction Status Date / Time iron [From VENOFER] Allergy Severe SWELLING Verified 11/14/22 11:43 iron infusion Allergy Severe hives Uncoded 11/14/22 11:43 Active Medications: Current Medications Albuterol Sulfate (Albuterol Sulfate (0.083%) 2.5 Mg/3 Ml Vial.Neb) 2.5 mg INHALE ONCE PRN PRN Reason: Shortness of Breath/Wheezing Lactated Ringer's (Lr) 1,000 mls @ 50 mls/hr IVCONT .Q20H ANA ROSA Last Admin: 01/07/23 07:25 Dose: 50 mls/hr Home Medications Medication Instructions Recorded Confirmed Last Taken Type albuterol sulfate 90 mcg/actuation 2 puff PO Q4H PRN Shortness Of 11/09/21 01/03/23 Unknown History aerosol inhaler (Ventolin HFA) Breath clonazepam 0.5 mg tablet 0.5 mg PO BID PRN Anxiety 11/09/21 01/03/23 Unknown History gabapentin 300 mg capsule 300 mg PO BEDTIME 11/09/21 01/03/23 Unknown History ropinirole 1 mg tablet 1 mg PO TID 11/09/21 01/03/23 01/07/23 History fluticasone furoate 200 1 ea inhalation DAILY 01/03/23 01/03/23 Unknown History mcg-vilanterol 25 mcg/dose inhalation powder (Breo Ellipta) albuterol sulfate 0.63 mg/3 mL 1 mg inhalation NEEDED PRN 01/07/23 01/07/23 01/07/23 History solution for nebulization Wheezing Exam Exam Date and Time: January 07, 2023 0745 Height,Weight and Vital Signs: Height 5 ft 1 in Weight 61.235 kg Last Vital Signs Temp 98 F 01/07/23 06:31 Pulse 78 01/07/23 06:31 Resp 20 01/07/23 06:31 BP 134/87 01/07/23 06:31 Pulse Ox 98 01/07/23 06:31 O2 Del Method Room Air 01/07/23 06:31 Assessment and Plan Final Anesthetic Review Family History of Problems with Anesthesia: No History of Problems with Anesthesia: Yes (Slow awakening)
--- NOTE | 2023-01-07 08:11 | MHC.SHP ---
Pre-Procedural Eval Section A Date of Service: 01/07/23 The patient is an INPATIENT: No The History & Physical has been completed within 30 days and I have reviewed it.: No Section B Chief Complaint: Family hx of malignant neoplasm of digestive,GERD Relevant Family History (Specify if Yes): No Relevant Social History: Tobacco Use Present Medications: see Short Stay Collaborative assessment Medical History: Significant History (Adrenal adenoma Asthma Essential tremor GERD (gastroesophageal reflux disease) Hx of complications due to general anesthesia Osteopenia RLS (restless legs syndrome)) History of Previous Operations: Relevant previous surgery/procedure and date(s) (History of esophagogastroduodenoscopy (EGD) History of meniscectomy of left knee History of repair of hiatal hernia Hx of arthroscopy Hx of carpal tunnel repair Hx of colonoscopy) Allergies: Allergies Allergy/AdvReac Type Severity Reaction Status Date / Time iron [From VENOFER] Allergy Severe SWELLING Verified 11/14/22 11:43 iron infusion Allergy Severe hives Uncoded 11/14/22 11:43 Review of Systems Sugical H&P ROS: Negative: Constitution, Cardiovascular, Respiratory and Gastrointestinal Exam Surgical H&P Exam: Normal: Heart, Normal: Lungs, Normal: Extremities and Normal: Abdomen Plan Diagnosis/Plan: Unchanged I have reviewed the history and physical and performed a pertinent physical examination on my patient. No changes have occurred unless specified. Time Spent With Patient Time: Total time managing care of this patient today ____ minutes.
--- NOTE | 2023-01-07 08:31 | P.OP_ITS ---
Operative Note Operative Note Date of Service: 01/07/23 Narrative: FLEXIBLE TRANSORAL UPPER GASTROINTESTINAL ENDOSCOPY WITH BIOPSIES AND COLONOSCOPY TILL CECUM WITH SNARE POLYPECTOMY AND SUBMUCOSAL INJECTION Pre-op diagnosis: Surveillance for colon polyps, GERD Post-op diagnosis: GERD, hiatal hernia, esophagitis, gastritis, colon polyp, diverticulosis, hemorrhoids? Endoscopist:? Katia Haji MD Anesthesia:?MAC UPPER ENDOSCOPY Consent: Indications for the procedure and potential complications of bleeding, perforation, reaction to medications and missed diagnosis were discussed with the patient and informed consent was obtained. Instrument: Olympus GIF H 190 mid size upper endoscope Monitoring: Vital signs and clinical assessment, continuous EKG monitoring, Pulse oximetry, Carbon Dioxide monitoring and blood pressure monitoring were done throughout the procedure. Procedure: The patient was placed in the left lateral decubitis position and pre-procedure medications were administered and a bite block was placed. The endoscope was inserted into the mouth and advanced under direct vision to the third part of duodenum. A careful inspection was made as the upper endoscope was withdrawn including a retroflexed examination of the proximal stomach; Findings and interventions are described below. Findings: Larynx: Normal Esophagus: GE junction at 32 cms, hiatal hernia 32 to 35 cms. Minimal focal esophagitis at GE junction with two 3-4 mm healing erosions. A 1 cms tongue of possible Ochoa's - biopsied. Stomach: Linear streaks of erythema in the gastric antrum. Biopsies were obtaine d. Grade 3 flap valve on retroflexed examination of the cardia. Duodenum: Normal bulb. A small diverticulum in the medial wall of 3rd part of duodenum. Biopsies were obtained from descending duodenum to check for celiac sprue Intervention: Biopsies as noted above COLONOSCOPY PROCEDURE NOTE Consent: Indications for the procedure and potential complications of bleeding, perforation, reaction to medications and missed diagnosis were discussed with the patient and informed consent was obtained. Instrument: Olympus PCF H 190 L variable stiffness pediatric colonoscope Monitoring: Vital signs and clinical assessment, intermittent blood pressure monitoring, continuous EKG monitoring, Pulse oximetry and Carbon Dioxide monitoring were done throughout the procedure. Colon withdrawl time was 26 minutes. Procedure: The patient was placed in the left lateral decubitis position and pre-procedure medications were administered. After a digital rectal examination of the ano-rectum, the video colonoscope was inserted into the rectum and advanced through the colon to the cecum. The colonoscope was slowly withdrawn in a retrograde panoramic fashion and the colon mucosa was carefully examined including a retroflexed view of the rectum. Findings and interventions are described below. Procedure Difficulty: : Without difficulty - narrowing of sigmoid colon due to severe diverticulosis Findings: Terminal Ileum: Not evaluated Cecum: Normal Ascending Colon: A 10-12 mm flat polyp in the mid AC. Polyp was raised with 5 cc of [place] and removed with a hot snare. No recurrent polyps seen at polypectomy site at 80 cms Transverse Colon: Normal Descending Colon: Moderate diverticulosis Sigmoid Colon: Severe diverticulosis with luminal narrowing Rectum: Normal Ano-rectum: Small internal hemorrhoids Colon preparation: Good after some irrigation Impression and Post Procedure Diagnosis: Endoscopy Findings: ESOPHAGUS: GE junction at 32 cms, hiatal hernia 32 to 35 cms. Minimal focal esophagitis at GE junction with two 3-4 mm healing erosions. A 1 cms tongue of possible Ochoa's - biopsied. STOMACH: Antral gastritis DUODENUM: A small diverticulum in the medial wall of 3rd part of duodenum. Biopsies were obtained from descending duodenum to check for celiac sprue Colonoscopy Findings: One medium sized polyp removed Moderate to severe diverticulosis seen in the left colon Small hemorrhoids on retroflexed exam. Plan: Await pathology results Patient has an appointment on 01/24/23 in the GI Clinic with Katia Haji M.D. Repeat Colonoscopy interval based on path results - in 3 years if polyps are adenomatous and 5 years if polyps are hyperplastic (due to a hx of adenomatous colon polyps). Above findings were reviewed with the patient and colon polyps and Hiatal Hernia handouts were given in the discharge area BIOPSIES: A) BX Small Bowel (R/O Celiacs) - ?Small intestinal mucosa within normal limits; negative for celiac disease. B) BX Gastric Antrum (R/O H.Pylori) - Stomach, antrum, biopsy:? Antral-type and oxyntic mucosa within normal limits; no Helicobacter organisms seen. C) BX EG Junction (R/O Ochoa's Esophagus) - Cardiac-type mucosa with mild chronic inactive inflammation; no intestinal metaplasia seen. - No squamous epithelium seen. D) Polyp Ascending Colon - Tubular adenoma; negative for high-grade dysplasia or carcinoma.
[2023-01-07 09:45] VITALS: BP 133/66; PULSE 86; RESP 16; TEMP 36.1; O2SAT 98
[2023-01-07 10:00] VITALS: BP 130/72; PULSE 76; RESP 16; O2SAT 98
[2023-01-07 10:14] VITALS: BP 127/74; PULSE 75; RESP 16; TEMP 36.2; O2SAT 98
== END 2023-01-07 10:51 | disposition home or self-care (01) ==
PROVIDERS: PCP Internal Medicine; Visit Provider Internal Medicine Gastroenterology
PROC: (CPT 45385; principal; 2023-01-07 08:30)
DX: Z12.11 Encounter for screening for malignant neoplasm of colon (principal); Z80.0 Family history of malignant neoplasm of digestive organs; Z86.010 Personal history of colon polyps; D12.2 Benign neoplasm of ascending colon; K57.30 Diverticulosis of large intestine without perforation or abscess without bleeding; Z87.19 Personal history of other diseases of the digestive system; K64.8 Other hemorrhoids; K58.9 Irritable bowel syndrome, unspecified; K21.9 Gastro-esophageal reflux disease without esophagitis; K29.70 Gastritis, unspecified, without bleeding; K44.9 Diaphragmatic hernia without obstruction or gangrene; G25.0 Essential tremor; J45.909 Unspecified asthma, uncomplicated; Z79.51 Long term (current) use of inhaled steroids; Z79.899 Other long term (current) drug therapy; F17.210 Nicotine dependence, cigarettes, uncomplicated
CPT/HCPCS: 45385; 45381; 43239; 88305; 88342; J2250

== ENCOUNTER → 2023-01-07 06:28 | Outpatient (BNV) | payer OTHER, MEDICAID, SELFPAY | PROVIDERS: PCP Internal Medicine; Visit Provider Internal Medicine Gastroenterology | DX: Z12.11 Encounter for screening for malignant neoplasm of colon (principal); K21.00 Gastro-esophageal reflux disease with esophagitis, without bleeding; K29.70 Gastritis, unspecified, without bleeding; K57.30 Diverticulosis of large intestine without perforation or abscess without bleeding; K64.8 Other hemorrhoids; D12.2 Benign neoplasm of ascending colon | CPT/HCPCS: 43239; 45381; 45385 ==

== ENCOUNTER 2023-01-24 09:04 | Outpatient (AMB) | payer OTHER, MEDICAID, SELFPAY ==
--- NOTE | 2023-01-24 09:08 | MHC.OFFVIS ---
Intake Vital Signs 01/24/23 09:17 Height 5 ft 1 in Weight 131 lb BMI 24.7 BP 120/68 Blood Pressure Location Lt brachial Position Sitting Pulse 78 Intake Visit Reasons: S/P Double;Dr. Haji Intake Note: Patient follow up for Colonoscopy/EGD results. Patient denies any GI issues. Commercial Stripper Required: No Accompanied by: Self / Same As Patient Allergies iron [From VENOFER] Allergy (Severe, Verified 01/24/23 09:13) SWELLING iron infusion Allergy (Severe, Uncoded 11/14/22 11:43) hives Medication List - Last Reconciled 01/24/23 by Katia Haji MD albuterol sulfate 1 mg inhalation NEEDED PRN albuterol sulfate 90 mcg/actuation (Ventolin HFA) 2 puffs PO Q4H PRN clonazepam 0.5 mg PO BID PRN famotidine 20 mg PO BID 90 days fluticasone furoate-vilanterol 200-25 mcg/dose (Breo Ellipta) 1 ea inhalation DAILY gabapentin 300 mg PO BEDTIME ropinirole 1 mg PO TID HPI S/P Double;Dr. Haji HPI Details GI clinic visit for this 62 [address] Roman for FU after an epsode of acute diverticulitis in September 2021 Hiatal hernia repair 10/[address] Erazo at [facility] (8 hour surgery) IMAGING STUDIES:? 10/24/[address] SCAN AT [facility] SHOWED: Short segment of distal sigmoid colon with thickened wall and adjacent diverticula with trace pelvic fluid and pericolonic fat stranding.? Sigmoid colon in cul de sac. ENDOSCOPIC STUDIES: 12/2022 EGD AND COLON SHOWED: Endoscopy Findings: ESOPHAGUS:? GE junction at 32 cms, hiatal hernia 32 to 35 cms. Minimal focal esophagitis at GE junction with two 3-4 mm healing erosions. A 1 cms tongue of possible Ochoa's - biopsied. STOMACH: Antral gastritis DUODENUM:? A small diverticulum in the medial wall of 3rd part of duodenum. Biopsies were obtained from descending duodenum to check for celiac sprue Colonoscopy Findings: One medium sized polyp removed Moderate to severe diverticulosis seen in the left colon Small hemorrhoids on retroflexed exam. Plan: Repeat Colonoscopy interval based on path results - in 3 years if polyps are adenomatous and 5 years if polyps are hyperplastic (due to a hx of adenomatous colon polyps). 12/2021 EGD AND COLON SHOWED: ESOPHAGUS: GE junction at 35 cms.? Irregular Z line with two healing erosions and a 1 cms tongue of possible Ochoa's - biopsied STOMACH: Moderate gastric erythema. Biopsies were obtained. Colonoscopy Findings: Two large to medium sized polyps removed Moderate to severe diverticulosis seen in the left colon Moderate hemorrhoids on retroflexed exam. Plan:? Repeat Colonoscopy interval based on path results - in 1 year if polyps are adenomatous (to check polypectomy site in the AC) and 10 years if polyps are hyperplastic. Pt needs GA for future colonoscopies since she was difficult to sedate and remained very restless and moved around on the strecher during the procedure. BIOPSIES SHOWED: A.? Stomach, antrum, biopsy:? Antral-type mucosa with mild chronic inactive inflammation; no Helicobacter organisms seen. B.? Esophagus, distal, biopsy: - Cardiac-type mucosa with moderate chronic, focally active, inflammation; no intestinal metaplasia seen. - Chronic active esophagitis (rare eosinophil). C.? Colon, mid ascending, polypectomy:? Sessile serrated polyp. D.? Colon, ascending at 80 cm, polypectomy:? Fragments of sessile serrated polyp. E.? Colon, left, biopsy:? Colonic mucosa within normal limits; negative for microscopic colitis. [address] Renee showed: 1.? GERD 2.? Large hiatall hernia 2010 EGD and colonoscopy were performed by Dr. Renee: A small hyperplastic polyp was removed and diverticulosis was detected.? TODAY'S VISIT: EGD and colon results reviewed with the patient. Pt gives a hx of hiatal hernia repair - has not suffered from heartburn since the surgery. Not taking the Famotidine regularly and plans to start taking it. Had an episode of diverticulitis in Sep, 2022 and was sick for 8 days. She was seen at [place] and had a CT scan Unsure if she was treated with antibiotics. Continues to have constipation alternating with diarrhea - symptoms are manageable Eats small meals - usually one meal a day and snacks. Denies recurrent episode of diverticulitis. PAST VISIT: EGD and colon results reviewed. Denies abdominal pains Woke up with bad gas pains on . Took peptobismol and Gas X and felt better. Noted left facial swelling with numbness and went to the ER at [facility]. Prescribed Augmentin x 14 days and will finish antibiotics today. Feels much better - no pain just some tenderness Facial swelling subsided after [address] Roman Had a cologuard in early May which was negative. [address] SCAN SHOWED: wall thickening of the distal stomach Mild hazziness around the duodenum. Patient denies symptoms of heartburn, dysphagia, nausea, vomiting, change in appetite or weight.? Denies recent change in bowel habits, constipation, diarrhea, black stools or rectal bleeding. (Black stools and black vomiting prior to hiatal hernia surgery) Has diarrhea alternating with constipation - no BM for a day or two. Patient denies major cardiac or pulmonary problems, admits to loud snoring and denies sleep apnea Has RLS. Problems with anesthesia in the past - hard time waking up from anesthesia. Smokes 3/4 of a pack a day and trying to cut down. Drinks socially. Denies being on chronic anticoagulation - tylenol or Ibuprofen prn for HAs of joint pains. 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 Patient denies known family history of colon polyps, colon cancer or other GI malignancies. Mom had 18 of colon removed due to diverticulitis [facility] Medical History (Updated 01/24/23 @ 10:01 by Katia Haji MD) Adrenal adenoma Asthma Essential tremor GERD (gastroesophageal reflux disease) Hx of complications due to general anesthesia Osteopenia RLS (restless legs syndrome) Surgical History History of esophagogastroduodenoscopy (EGD) History of meniscectomy of left knee History of repair of hiatal hernia Hx of arthroscopy Hx of carpal tunnel repair Hx of colonoscopy Family History Father HTN (hypertension) Mother Diabetes Cancer Social History Household Members: Spouse and Children Alcohol intake: current Alcohol intake frequency: holidays/special occasions only Patient Tobacco Use Status: Current everyday Tobacco user Tobacco use type: Cigarette Cigarette Packs Per Day: 0.75 Cigarettes Per Day: 15 Review of Systems Const All systems reviewed & are unremarkable except as noted in HPI and below Physical Exam Vital Signs: Last Vital Signs Pulse 78 01/24/23 09:17 BP 120/68 01/24/23 09:17 BMI result Body Mass Index 24.7 Const General: healthy appearing and no acute distress Nutritional Appearance: average body habitus Orientation/consciousness: patient oriented x3 Limitations: no limitations HEENT Head: Yes normal to inspection Ears: hearing grossly normal bilaterally Eyes Sclerae: sclerae normal Pupils: Equal, round and reactive pupils present Neck Neck: Yes normal visual inspection Chest Chest palpation & inspection: normal inspection of the chest Resp Effort & Inspection: normal respiratory effort Auscultation: clear to auscultation bilaterally Cardio Palpation: normal PMI Rate: regular rate Rhythm: regular rhythm Heart sounds: S1 normal heart sound present, S2 normal heart sound present and no murmurs GI Palpation (GI): Soft to palpation, Tenderness to palpation present (GI) (mild LLQ discomfort on palpation) and No hepatosplenomegaly present Auscultation: normal bowel sounds Rectal Exam - Female: deferred Skin General skin exam: no rashes or lesions noted Neuro General: patient oriented x3, gait normal and moves all extremities Cranial nerves: Yes Equal, round and reactive pupils present Psych Appearance: grossly normal Mental Status: mental status grossly normal Assessment & Plan Assessment & Plan (1) IBS (irritable bowel syndrome): Code(s): K58.9 - Irritable bowel syndrome without diarrhea (2) History of colon polyps: Comment: 12/2021 Colonoscopy showed: Colonoscopy Findings: Two large to medium sized sessile serrated polyps removed Moderate to severe diverticulosis seen in the left colon Moderate hemorrhoids on retroflexed exam. 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 Pt was advised to take a fibre supplement daily 12/2022 upper endoscopy and same day colonoscopy was performed (past CT scan showed wall thickening of the distal stomach and mild hazziness around the duodenum, FU of diverticulitis) and findings as noted above. Fu in 6 months. Medications: New cholecalciferol (vitamin D3) 250 mcg PO 2XW 26 caps 1RF 90 days E55.9 - Vitamin D deficiency, unspecified Coding Level of Care Code Est Pt Level 4 (76764) Diagnoses IBS (irritable bowel syndrome) K58.9 History of colon polyps Z86.010 Time Spent (min) 22
[2023-01-24 09:17] VITALS: BP 120/68; PULSE 78; BMI 24.7
== END 2023-01-24 09:41 | disposition home or self-care (01) ==
PROVIDERS: PCP Internal Medicine; Visit Provider Internal Medicine Gastroenterology
DX: K58.9 Irritable bowel syndrome, unspecified (principal); Z86.010 Personal history of colon polyps
CPT/HCPCS: 99214

== ENCOUNTER → 2023-01-24 09:04 | Outpatient (BNVA) | payer OTHER, MEDICAID, SELFPAY | PROVIDERS: PCP Internal Medicine; Visit Provider Internal Medicine Gastroenterology | DX: K58.9 Irritable bowel syndrome, unspecified (principal); K57.30 Diverticulosis of large intestine without perforation or abscess without bleeding; Z86.010 Personal history of colon polyps | CPT/HCPCS: 99212 ==

== ENCOUNTER 2023-04-29 10:39 | Outpatient (REF) | payer OTHER, MEDICAID, SELFPAY ==
[2023-04-29 10:42] LABS: MANUAL DIFF FLAG NO
[2023-04-29 10:47] LABS: Basophils Absolute Auto 0.1 X10*3/uL (0.0-0.2); Eosinophils Absolute Auto 0.1 X10*3/uL (0.0-0.4); Hematocrit 43.1 % (37.0-47.0); Hemoglobin 14.2 g/dl (12.0-16.0); Imm Gran Abs Auto 0.01 X10*3/uL (0.00-0.03); Imm Gran Pct Auto 0.2 % (0.0-0.4); Lymphocytes Absolute Auto 1.7 X10*3/uL (1.2-4.9); Lymphocytes Percent Auto 29.1 % (20-40); Mean Corpuscular HGB Conc 32.9 g/dl (31.0-35.0); Mean Corpuscular Volume 97.1 fL (80.0-98.0); Monocytes Absolute Auto 0.5 X10*3/uL (0.1-1.2); Monocytes Percent Auto 8.6 % (2-11); Neutrophils Absolute Auto 3.5 x10*3/uL (2.0-8.3); Neutrophils Percent Auto 60.1 % (45-73); Platelet Count 253 X10*3/uL (160-400); Red Blood Count 4.44 X10*6/uL (4.20-5.50); Red Cell Distribution Width 13.1 % (11.0-16.0); White Blood Count 5.8 X10*3/uL (4.8-10.8)
[2023-04-29 10:49] LABS: Appearance Urine Clear; Color Urine Yellow; Glucose Urine UA Negative (Negative); Leukocyte Esterase Urine Negative (Negative); Nitrite Urine Negative (Negative); PH 5.5 (5.0-9.0); Specific Gravity - Urine 1.025 (1.005-1.025); UMIC TRIGGER UACC YES; Urine Blood Moderate (2+) (Negative); Urine Ketones Negative (Negative); Urine Protein Trace mg/dL (Neg-Trace)
[2023-04-29 10:51] LABS: Bacteria Urine 1+ (None Seen); Hyaline Casts Urine 0-2 /LPF (0-2); RBC Urine >20 /HPF (0-2); WBC Urine 0-5 /HPF (0-5)
[2023-04-29 10:57] LABS: Alanine Aminotransferase 14 U/L (0-31); Alkaline Phosphatase 77 U/L (39-117); Anion Gap 11 (12-20); Aspartate Amino Transferase 17 U/L (5-31); Bilirubin Total 0.4 mg/dL (0.0-1.0); Blood Urea Nitrogen 10 mg/dL (9-16); Calcium 9.2 mg/dL (8.4-10.2); Carbon Dioxide 26 mmol/L (22-29); Chloride 107 mmol/L (96-108); Cholesterol 214 mg/dL (<200); Estimated Glomerular Filt Rate > 60; Glucose Fasting 96 mg/dL (60-99); HDL Cholesterol 63 mg/dL (>40); LDL Cholesterol Calculated 136 mg/dL (<100); Potassium 4.1 mmol/L (3.3-5.1); Sodium 140 mmol/L (135-145); Total Protein 6.9 g/dL (6.5-8.0); Triglycerides 75 mg/dL (<150)
== END 2023-04-29 10:40 | disposition home or self-care (01) ==
LOC: HO.LNP 10:39
PROVIDERS: PCP Internal Medicine; Visit Provider Internal Medicine
DX: Z00.00 Encounter for general adult medical examination without abnormal findings (principal)
CPT/HCPCS: 80053; 80061; 81001; 85025

== ENCOUNTER 2023-08-22 11:56 | Outpatient (REF) | payer OTHER, MEDICAID, SELFPAY | END 2023-08-22 11:57 | disposition home or self-care (01) | LOC: HO.MAMMO 11:56 | PROVIDERS: Visit Provider Internal Medicine | DX: Z12.31 Encounter for screening mammogram for malignant neoplasm of breast (principal) | CPT/HCPCS: 77063; 77067 ==

== ENCOUNTER → 2023-08-22 12:00 | Outpatient (BNV) | payer OTHER, MEDICAID, SELFPAY | PROVIDERS: Visit Provider Radiology Diagnostic Radiology | DX: Z12.31 Encounter for screening mammogram for malignant neoplasm of breast (principal) | CPT/HCPCS: 77063; 77067 ==

== ENCOUNTER 2023-11-21 10:51 | Outpatient (AMB) | payer OTHER, MEDICAID, SELFPAY ==
--- NOTE | 2023-11-21 11:13 | A.OFFVIS_ITS ---
Vital Signs 11/21/23 11:16 Height 5 ft Weight 133 lb BMI 26.0 BP 135/76 Blood Pressure Location Lt brachial Position Sitting Pulse 63 Intake Visit Reasons: 6 month follow up Intake Note: Patient follow up for hx colon polyps Patient cc: between diarrhea and constipation on amd off, Denies any other GI issues. Hub Cutter Required: No Accompanied by: Self / Same As Patient Allergies iron [From [facility]ENOF[facility]] Allergy (Severe, Verified 11/21/23 11:12) SWELLING iron infusion Allergy (Severe, Uncoded 11/14/22 11:43) hives Medication List - Last Reconciled 11/21/23 by Katia Haji MD albuterol sulfate 1 mg inhalation NEEDED PRN albuterol sulfate 90 mcg/actuation (Ventolin HFA) 2 puffs PO Q4H PRN cholecalciferol (vitamin D3) 250 mcg PO 2XW 90 days clonazepam 0.5 mg PO BID PRN famotidine 20 mg PO BID 90 days fluticasone furoate-vilanterol 200-25 mcg/dose (Breo Ellipta) 1 ea inhalation DAILY gabapentin 300 mg PO BEDTIME ropinirole 1 mg PO TID HPI HPI 6 month follow up: Details: GI clinic visit for this 63 [address] Roman for FU after an episode of acute diverticulitis in September 2021 Hiatal hernia repair 10/[address] Erazo at [facility] (8 hour surgery) IMAGING STUDIES:? 10/24/[address] SCAN AT [facility] SHOWED: Short segment of distal sigmoid colon with thickened wall and adjacent diverticula with trace pelvic fluid and pericolonic fat stranding.? Sigmoid colon in cul de sac. ENDOSCOPIC STUDIES: 12/2022 EGD AND COLON SHOWED: Endoscopy Findings: ESOPHAGUS:? GE junction at 32 cms, hiatal hernia 32 to 35 cms. Minimal focal esophagitis at GE junction with two 3-4 mm healing erosions. A 1 cms tongue of possible Ochoa's - biopsied. STOMACH: Antral gastritis DUODENUM:? A small diverticulum in the medial wall of 3rd part of duodenum. Biopsies were obtained from descending duodenum to check for celiac sprue Colonoscopy Findings: One medium sized polyp removed Moderate to severe diverticulosis seen in the left colon Small hemorrhoids on retroflexed exam. Plan: Repeat Colonoscopy interval based on path results - in 3 years if polyps are adenomatous and 5 years if polyps are hyperplastic (due to a hx of adenomatous colon polyps). 12/2021 EGD AND COLON SHOWED: ESOPHAGUS: GE junction at 35 cms.? Irregular Z line with two healing erosions and a 1 cms tongue of possible Ochoa's - biopsied STOMACH: Moderate gastric erythema. Biopsies were obtained. Colonoscopy Findings: Two large to medium sized polyps removed Moderate to severe diverticulosis seen in the left colon Moderate hemorrhoids on retroflexed exam. Plan:? Repeat Colonoscopy interval based on path results - in 1 year if polyps are adenomatous (to check polypectomy site in the AC) and 10 years if polyps are hyperplastic. Pt needs GA for future colonoscopies since she was difficult to sedate and remained very restless and moved around on the strecher during the procedure. BIOPSIES SHOWED: A.? Stomach, antrum, biopsy:? Antral-type mucosa with mild chronic inactive inflammation; no Helicobacter organisms seen. B.? Esophagus, distal, biopsy: - Cardiac-type mucosa with moderate chronic, focally active, inflammation; no intestinal metaplasia seen. - Chronic active esophagitis (rare eosinophil). C.? Colon, mid ascending, polypectomy:? Sessile serrated polyp. D.? Colon, ascending at 80 cm, polypectomy:? Fragments of sessile serrated p olyp. E.? Colon, left, biopsy:? Colonic mucosa within normal limits; negative for microscopic colitis. [address] Renee showed: 1.? GERD 2.? Large hiatall hernia 2010 EGD and colonoscopy were performed by Dr. Renee: A small hyperplastic polyp was removed and diverticulosis was detected.? TODAY'S VISIT: Patient cc: between diarrhea and constipation on and off, Denies any other GI issues. Denies recurrent episodes of diverticulitis over the past year Continues to have diarrhea alternating with constipation. Always suffered with irregular BMs - diarrhea is more frequent - 3-4 times a week. Has 1-2 Bms on days she has diarrhea. Tried taking Miralax and metamucil in the past without relief Advised to try psyllium husk. PAST VISIT: Pt gives a hx of hiatal hernia repair - has not suffered from heartburn since the surgery. Not taking the Famotidine regularly and plans to start taking it. Continues to have constipation alternating with diarrhea - symptoms are manageable Eats small meals - usually one meal a day and snacks. Denies recurrent episode of diverticulitis. EGD and colon results reviewed with the patient. Had an episode of diverticulitis in Sep, 2022 and was sick for 8 days. She was seen at [place] and had a CT scan Unsure if she was treated with antibiotics. EGD and colon results reviewed. Denies abdominal pains Woke up with bad gas pains on . Took peptobismol and Gas X and felt better. Noted left facial swelling with numbness and went to the ER at [facility]. Prescribed Augmentin x 14 days and will finish antibiotics today. Feels much better - no pain just some tenderness Facial swelling subsided after [address] Roman Had a cologuard in early May which was negative. [address] SCAN SHOWED: wall thickening of the distal stomach Mild hazziness around the duodenum. Patient denies symptoms of heartburn, dysphagia, nausea, vomiting, change in appetite or weight.? Denies recent change in bowel habits, constipation, diarrhea, black stools or rectal bleeding. (Black stools and black vomiting prior to hiatal hernia surgery) Has diarrhea alternating with constipation - no BM for a day or two. Patient denies major cardiac or pulmonary problems, admits to loud snoring and denies sleep apnea Has RLS. Problems with anesthesia in the past - hard time waking up from anesthesia. Smokes 3/4 of a pack a day and trying to cut down. Drinks socially. Denies being on chronic anticoagulation - tylenol or Ibuprofen prn for HAs of joint pains. 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 Patient denies known family history of colon polyps, colon cancer or other GI malignancies. Mom had 18 of colon removed due to diverticulitis [facility] Medical History (Updated 01/24/23 @ 10:01 by Katia Haji MD) Adrenal adenoma Hx of complications due to general anesthesia Osteopenia Essential tremor GERD (gastroesophageal reflux disease) RLS (restless legs syndrome) Asthma Surgical History History of repair of hiatal hernia History of meniscectomy of left knee Hx of arthroscopy Hx of carpal tunnel repair History of esophagogastroduodenoscopy (EGD) Hx of colonoscopy Family History Father HTN (hypertension) Mother Diabetes Cancer Social History Household Members: Spouse and Children Alcohol intake: current Alcohol intake frequency: holidays/special occasions only Patient Tobacco Use Status: Current everyday Tobacco user Tobacco use type: Cigarette Cigarette Packs Per Day: 0.75 Cigarettes Per Day: 15 Review of Systems Const All systems reviewed & are unremarkable except as noted in HPI and below Physical Exam Vital Signs: Last Vital Signs Pulse 63 11/21/23 11:16 BP 135/76 11/21/23 11:16 BMI result Body Mass Index 26.0 Assessment & Plan Assessment & Plan (1) IBS (irritable bowel syndrome): Code(s): K58.9 - Irritable bowel syndrome without diarrhea Category: Medical (2) History of colon polyps: Comment: 12/2021 Colonoscopy showed: Colonoscopy Findings: Two large to medium sized sessile serrated polyps removed Moderate to severe diverticulosis seen in the left colon Moderate hemorrhoids on retroflexed exam. 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 Pt was advised to take a fibre supplement daily 12/2022 upper endoscopy and same day colonoscopy was performed (past CT scan showed wall thickening of the distal stomach and mild hazziness around the duodenum, FU of diverticulitis) and findings as noted above. 11/21/23 Denies recurrent episodes of diverticulitis over the past year Continues to have diarrhea alternating with constipation. Always suffered with irregular BMs - diarrhea is more frequent - 3-4 times a week. Has 1-2 Bms on days she has diarrhea. Tried taking Miralax and metamucil in the past without relief Advised to try psyllium husk. Fu in 12 months Medications: New psyllium husk mix into at least 8 oz of water or juice before administering 1 tbsp PO DAILY 480 grams 1RF 90 days Coding Level of Care Code Est Pt Level 3 (09323) Diagnoses IBS (irritable bowel syndrome) K58.9 History of colon polyps Z86.010 Vitamin D deficiency E55.9 Time Spent (min) 19
[2023-11-21 11:16] VITALS: BP 135/76; PULSE 63; BMI 26.0
== END 2023-11-21 11:42 | disposition home or self-care (01) ==
PROVIDERS: PCP Internal Medicine; Visit Provider Internal Medicine Gastroenterology
DX: K58.9 Irritable bowel syndrome, unspecified (principal); Z86.010 Personal history of colon polyps; E55.9 Vitamin D deficiency, unspecified
CPT/HCPCS: 99213

== ENCOUNTER → 2023-11-21 10:51 | Outpatient (BNVA) | payer OTHER, MEDICAID, SELFPAY | PROVIDERS: PCP Internal Medicine; Visit Provider Internal Medicine Gastroenterology | DX: K58.9 Irritable bowel syndrome, unspecified (principal); E55.9 Vitamin D deficiency, unspecified; Z86.010 Personal history of colon polyps | CPT/HCPCS: 99212 ==

== ENCOUNTER 2024-05-05 12:25 | Outpatient (REF) | payer OTHER, MEDICAID, SELFPAY ==
[2024-05-05 12:27] LABS: MANUAL DIFF FLAG NO
[2024-05-05 12:39] LABS: Basophils Absolute Auto 0.1 X10*3/uL (0.0-0.2); Basophils Percent Auto 1.2 % (0-2); Eosinophils Absolute Auto 0.1 X10*3/uL (0.0-0.4); Eosinophils Percent Auto 2.6 % (0-4); Hematocrit 40.2 % (37.0-47.0); Hemoglobin 13.2 g/dl (12.0-16.0); Imm Gran Abs Auto 0.01 X10*3/uL (0.00-0.03); Imm Gran Pct Auto 0.2 % (0.0-0.4); Lymphocytes Absolute Auto 1.8 X10*3/uL (1.2-4.9); Lymphocytes Percent Auto 42.8 % (20-40); Mean Corpuscular HGB Conc 32.8 g/dl (31.0-35.0); Mean Corpuscular Hemoglobin 31.8 pg (27.0-33.0); Mean Corpuscular Volume 96.9 fL (80.0-98.0); Mean Platelet Volume 9.9 fL (9.4-12.3); Monocytes Absolute Auto 0.4 X10*3/uL (0.1-1.2); Monocytes Percent Auto 8.4 % (2-11); Neutrophils Absolute Auto 1.9 x10*3/uL (2.0-8.3); Neutrophils Percent Auto 44.8 % (45-73); Platelet Count 280 X10*3/uL (160-400); Red Blood Count 4.15 X10*6/uL (4.20-5.50); Red Cell Distribution Width 12.5 % (11.0-16.0); White Blood Count 4.2 X10*3/uL (4.8-10.8)
[2024-05-05 12:46] LABS: Appearance Urine Clear; Color Urine Yellow; Glucose Urine UA Negative (Negative); Leukocyte Esterase Urine Trace (Negative); Nitrite Urine Negative (Negative); PH 5.5 (5.0-9.0); Specific Gravity - Urine 1.015 (1.005-1.025); UMIC TRIGGER UACC YES; Urine Blood Moderate (2+) (Negative); Urine Ketones Negative (Negative); Urine Protein Negative (Neg-Trace)
[2024-05-05 12:49] LABS: Alanine Aminotransferase 18 U/L (0-31); Alkaline Phosphatase 64 U/L (39-117); Anion Gap 13 (12-20); Aspartate Amino Transferase 23 U/L (5-31); Bilirubin Total 0.3 mg/dL (0.0-1.0); Blood Urea Nitrogen 10 mg/dL (9-16); Calcium 8.8 mg/dL (8.4-10.2); Carbon Dioxide 28 mmol/L (22-29); Chloride 103 mmol/L (96-108); Cholesterol 246 mg/dL (<200); Estimated Glomerular Filt Rate > 60; Glucose Fasting 97 mg/dL (60-99); HDL Cholesterol 62 mg/dL (>40); Iron 87 mcg/dL (30-160); LDL Cholesterol Calculated 167 mg/dL (<100); Percent Iron Saturation 29 % (15-50); Potassium 4.2 mmol/L (3.3-5.1); Sodium 140 mmol/L (135-145); Total Iron Binding Capacity 303 mcg/dL (228-428); Total Protein 6.9 g/dL (6.5-8.0); Triglycerides 86 mg/dL (<150); Unsaturated Iron Binding 216 ug/dL
[2024-05-05 12:50] LABS: Bacteria Urine None Seen (None Seen); Hyaline Casts Urine 0-2 /LPF (0-2); UACC Culture Trigger YES
== END 2024-05-05 12:26 | disposition home or self-care (01) ==
LOC: HO.LNP 12:25
PROVIDERS: Visit Provider Internal Medicine
DX: Z00.00 Encounter for general adult medical examination without abnormal findings (principal); D50.8 Other iron deficiency anemias; R82.90 Unspecified abnormal findings in urine
CPT/HCPCS: 80053; 80061; 81001; 83540; 85025; 87086

== ENCOUNTER 2024-08-27 11:51 | Outpatient (REF) | payer MEDICARE, SELFPAY ==
--- OUTSIDE RECORDS SUMMARY | 2024-08-27 13:11 | XMS_ITS | Clinical Summary ---
Author Organization [facility] Address [address] [place] [address] Care Team Providers Care Funeral Service Licensee Name Role Phone Jonny Roman MD Primary Care Provider [phone] Social History Tobacco Use Types Packs/Day Years Used Date Smoking Tobacco: Never Assessed Sex and Gender Information Value Date Recorded Sex Assigned at Not on file Gender Identity Not on file Sexual Orientation Not on file Plan of Treatment Health Maintenance Due Date Last Done Comments Hepatitis C Screening 1960 COVID-19 Vaccine (#1) 1960 Depression Screening 1972 Preventative Health Evaluation 1978 DTap / Tdap / Td (1 - Tdap) 1979 Cervical Cancer Screening (P ap Smear) 1981 Colon Cancer Screening (Colonoscopy) 2005 Breast Cancer Screening (Mammogram) 2010 Shingrix-Zoster Vaccine (1 of 2) 2010 Influenza Vaccine (#1) 2024 Pneumococcal Vaccine (1 of 1 - PCV) 2025 RSV Adult > 60+ Yrs or Pregn ant (1 - 1-dose 75+ series) 2035 Hepatitis B Vaccines Aged Out No long er eligible based on patient's age to complete this topic Pneumococcal Vaccine Aged Out No long er eligible based on patient's age to complete this topic RSV Ped < 20 months Aged Out No longe r eligible based on patient's age to complete this topic Care Teams Funeral Service Licensee Relationship Specialty Start Date End Date Jonny Roman MD [address] [place] [phone] PCP - General Internal Medicine 03/23/20
--- OUTSIDE RECORDS SUMMARY | 2024-08-27 13:12 | XMS_ITS ---
Author Organization Jonny Roman MD Address [address] [place] [phone] Care Team Providers Care Dispatcher Street Department Name Role Phone Jonny Roman Primary Care [...] kg/m2 11/21/2023 weight is down [address] [facility] e 10-01-23 Encounters Encounter Location Date Provider Diagnosis Jonny Roman MD [address] [place] [address] [place] [phone] 11/21/2023 Jonny Roman Mild intermittent asthma with [...] current regiment Next Appt Details Provider Name:Jonny Saunderscourtney ier, 05/17/2025 07:00:00 AM, [address], [address], [place], [place], [phone], Provider Name:Jonny Lares ier, 05/24/2025 10:30:00 AM, [address], [address], [place], [place], [phone], Progress Notes * AKILANai BOnda LDOB:[birth year] (63 yo F)Acc No.[id number]:11/21/2023 Progress Notes Patient:?Delisa Tovar L Provider:?Jonny Roman MD :1960???Age:63 Y???Sex:Female D ate:11/21/2023 Address:[address] [place] [address], [facility] Subjective: * Chief Complaints: * ???6 MO F/U * HPI: ???Symptom(s):? patient is a 63 yo male here for 6 month follow up visit. * ROS:?General/Constitutional:?Denies?Chills.?Denies?Fatigue.?Denies?Fever.?Denies?Headache.?ENT:?Patient denies?decreased sense of smell , any loss of taste , sore throat.?Denies?Sore throat.?Respiratory:?Denies?Cough.?Denies?Shortness of breath at rest.?Denies?Shortness of breath with exertion.?Gastrointestinal:?Denies?Diarrhea.?Denies?Nausea.?Musculoskeletal:?Patient denies?muscle aches.?Peripheral Vascular:?Patient denies?red and blue toes.? * Medical History:? * Surgical History:? * Hospitalization/Major Diagno stic Procedure:? * Medications:?TakingFamotidin e 20 MG Tablet 1 tablet at bedtime [...] reviewed and reconciled with the patient * Allergies:?iron infusion: hi vesPredniSONE: had hallucination with primidoneyes[Allergies Verified] Objective: * Vitals:?Ht: 60.5, Wt:133, BM I:25.54, BP:112/70 weight is down 4 pounds since 10-01-23. * Examination: ???General Examination: ?GENERAL APPEARANCE:? alert, well hydrated, in no distress .?HEAD:? normocephalic.?EYES:? BOTH EYES.?SKIN:? good turgor.?HEART:? no murmurs, rubs, gallops, regular rate and rhythm.?LUNGS:? no wheezes, rales, rhonchi, good air movement, clear to auscultation bilaterally.? Assessment: * Assessment: 1.?Mild intermittent asthma with acute exacerbation - J45.21 (Primary)?2.?Gastroesophageal reflux disease without esophagitis - K21.9? Plan: * Treatment: 2.?Gastroesophageal reflux d isease without esophagitis? Notes: stable, will continue current regiment.?? * Procedure Codes:? * * Sign off status: Completed true * Provider:?Jonny Roman MD Date:?0 11/21/2023 Generated for Tano fisher/Andre/eTglennsmitting on:?08/27/2024 01:11 PM EDT History and Physical Notes * HPI (History [...]
--- OUTSIDE RECORDS SUMMARY | 2024-08-27 13:12 | XMS_ITS | Data Portability ---
Author Organization [place] - [facility], [address] Address [place] [address] Assessment No assessment recorded. Plan of Treatment Reminders Order Date Submit Date Provider Last Modified By Organization Details Last Modified Time Details Appointments None recorded. Lab None recorded. Referral None recorded. Procedures None recorded. Surgeries None recorded. Imaging XR, ribs, unilateral, w/ PA chest 2022 023 [email or web address] [facility], [address] [place], [address], 11:18:37 Medication Orders naproxen 500 mg tablet 2022 023 [facility] #[id number], [address] [place], [address], 11:18:10 cyclobenzap rine 10 mg tablet 2022 023 [facility] #[id number], [address] [place], [address], 11:18:10 Patient TargetsNo targets recorded. Patient Instructions Encounter Date Encounter Id Patient Instructions Last Modified By Organization Details Last Modified Time 06/25/2022 [id number] chest contusion: care instructions [email or web address] Not available 06/25/2022 11:18:08 musculoskeletal chest pain: care instructions [email or web address] Not available 06/25/2022 11:18:08 costochondritis: care instructions [email or web address] Not available 06/25/2022 11:18:08 Reason for Referral None Reported. Results Created Date Observation Date Name Description Value Unit Range Abnormal Flag Note LastModifiedBy Organization Detail LastModifiedTime 06/25/19 23 06/25/2022 XR, ribs, unila teral , w/ PA chest No observ ation record ed. [email or web address] [facility] [address] [place], [address], 06/28/2022 15:11:05 Result Notes None recorded. Problems Name Problem SNOMED Code Status Onset Date Resolution Date Notes Provider Name and Address Organization Details Recorded Time Osteoporosis 71945221 Active 2022 Mady Avina null, [place] - [facility] 10:15:29 Chronic tremor 114109441 Active 2022 Mady Avina null, [place] - [facility] 10:21:39 Rib pain 852166019 Active 2022 Anup Holley MD [address] , [place], [address], [place] - [facility] 10:48:19 Contusion of rib 911834069 Active 2022 Anup Holley MD [address] , [place], [address], [place] - [facility] 11:15:24 Problem Notes None recorded. Procedures Surgical History None recorded. Imaging Results Imaging Date Name Status LastModified by Organiz ation Details LastModified Time 06/25/2022 XR, ribs, unilateral, w/ PA chest completed [email or web address] [facility] [address] [place], [address], 06/28/2022 15:11:05 Procedure Notes None recorded. Medical Equipment None Reported. Allergies No known drug allergies Medications Name Sig Start Date Stop Date Status Note LastModified by Organization Details LastModified Time cyclobenzaprine 10 mg tablet Take 1 tablet 3 times a day by oral route as needed for 10 days. 2022 active Not Available Not Available Not Avai lable gabapentin 300 mg capsule Take 1 capsule 3 times a day by oral route. active Not Available Not Available No t Available naproxen 500 mg tablet Take 1 tablet twice a day by oral route with meals for 15 days. 2022 active Not Available Not Available Not Avai lable ropinirole active Not Available Not Av ailable Not Available Vitals Date Recorded Respiratory rate Body height Body mass index (BMI) Body weight Pain severity - 0-10 verbal numeric rating [Score] - Reported Oxygen saturation Oxygen saturation in Arterial blood by Pulse oximetry Heart rate Body temperature Systolic blood pressure Diastolic blood pressure Provider Name and Address Organization Details Last Updated DateTime 16 /min 152.4 cm 26.4 kg/m2 06493.9 7 g 5 99 % 99 % 88 /min 98.1 [degF] 148 mm[Hg] 96 mm[Hg] Mady Avina [employer] 10:17:17 Social History Question Answer Notes LastModified by Organizat ion Details LastModified Time Tobacco Smoking Status Current Every Day Smoker Mady [email or web address] [place] [employer] [facility] 06/25/2022 10:16:13 What Is Your Level Of Alcohol Consumption? Occasional [email or web address] Information not available 06/25/2022 How Many Times Per Week Do You Consume Alcohol? Less Than 1 Time Per Week [email or web address] Information not available 06/25/2022 What Is Your Water Source? City [email or web address] Information not available 06/25/2022 What Is Your Heat Source? Electric Information not available 06/25/2022 Have You Had Direct Contact, Or Contact During Intimacy, With Monkeypox Rash, Scabs, Or Body Fluids From A Person With Monkeypox? No [email or web address] Information not available 06/25/2022 How Much Tobacco Do You Smoke? 0.5 PPD Information not available 06/25/2022 Do You Use Any Illicit Or Recreational Drugs? No [email or web address] Information not available 06/25/2022 How Many Years Have You Smoked Tobacco? 8 [email or web address] Information not available 06/25/2022 Have You Recently Traveled Abroad? No [email or web address] Information not available 06/25/2022 Do You Or Have You Ever Used Any Other Forms Of Tobacco Or Nicotine? No [email or web address] Information not available 06/25/2022 Sex: Unknown Functional Status None recorded. Mental Status None recorded. Family History Relationship Description Onset Age of this Age Resolved Age Notes LastModified by Organization Details LastModified Time Father No current problems or disability [email or web address] Not available 10:05:56 Mother No current problems or disability [email or web address] Not available 10:05:56 Medical History No medical history recorded. Gynecological HistoryNo gynecological history recorded. Obstetrics History GPAL:G 0 P 0 0 0 0 Past Encounters Encounter ID Performer Location Encounter Start Date Encounter Closed Date Diagnosis/Indication Diagnosis SNOMED-CT Code Diagnosis ICD10 Code Diagnosis Note [id number] [address] [address] 10/05/2018 09:14:50 10/05/2018 09:56:38 [id number] [address] [address] 06/03/2018 11:27:19 06/03/2018 13:21:43 [id number] [place] [address] [address] [facility],[address] [place] [address] 06/25/2022 09:19:25 06/25/2022 11:18:37 Rib pain 842909789 R07.81 Contusion of rib 4593538 06 S20.20XA Health Concerns Section Related Observation LastModified by Organization Detai ls LastModified Time None Recorded Concern Status LastModified by Organization Details LastModified Time None Recorded Advance Directives Directive None Recorded Payers Encounter Date Sequence Insurance Name Policy Number Policy Koenig Covered Member ID Koenig Member ID Guarantor Name 06/03/2018 1 [place] [employer] Delisa L Carrie [id number] [facility] 06/03/2018 2 [place] Delisa L Carrie [id number] [facility] [place] 10/05/2018 1 [place] Delisa L Carrie [id number] Delisa Carrie 10/05/2018 2 [place] Delisa L La [id number] Delisakana Tovar 06/25/2022 1 [facility] [place] [id number] Delisa Tovar Notes Date Note Type Note Provider Name and Address Organization Details Recorded Time 06/25/2022 text/html patient slipped and fell in a parking lot saturday (2 days ago) and has been having pain in the left anterior ribs since. hurts to cough or take a deep breath or move upper torso. Anup Holley MD [address] [place], [address], [place] - [facility] 06/25/2022 11:22:02 OBGyn Episode No OBEpisode recorded.
--- OUTSIDE RECORDS SUMMARY | 2024-08-27 13:12 | XMS_ITS ---
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) Active confirmed Vital Signs Blood pressure systolic 112 mm Hg 05/12/20 24 Blood pressure diastolic 70 mm Hg 024 Height 60.5 in 05/12/2024 Weight 141 lbs 05/12/2024 BMI 27.08 kg/m2 05/12/2024 weight is up 8 pounds since 11-21-23 Encounters Encounter Location Date Provider Diagnosis Jonny Roman MD [address] [place] [address] [place] [phone] 05/12/2024 Jonny Roman Ophthalmic migraine G43.109 ; [...] Up: 1 Year, Reason: Provider Name:Jonny licea, 05/17/2025 07:00:00 AM, [address] [place] [address], Suite [facility], [place], [place], [phone], Provider Name:Jonny licea, 05/24/2025 10:30:00 AM, [address] [place] [address], Suite [facility], [place], [place], [phone], Progress Notes * Delisa WILBURN LDOB:[birth year] (63 yo F)Acc No.[id number]:05/12/2024 Progress Notes Patient:?Delisa Wilburn Provider:?Jonny Roman MD :1960???Age:63 Y???Sex:Female D ate:05/12/2024 Address:[address] [place], [place] [phone] Subjective: * Chief Complaints: * ???ANNUAL EXAM * HPI: ???Depression Screening:?PHQ-9?Little interest or pleasure in doing things?Not at all,?Feeling down, depressed, or hopeless?Not at all,?Trouble falling or staying asleep, or sleeping too much?Not at all,?Feeling tired or having little energy?Not at all,?Poor appetite or overeating?Not at all,?Feeling bad about yourself or that you are a failure, or have let yourself or your family down?Not at all,?Trouble concentrating on things, such as reading the newspaper or watching television?Not at all,?Moving or speaking so slowly that other people could have noticed; or the opposite, being so fidgety or restless that you have been moving around a lot more than usual?Not at all,?Thoughts that you would be better off or of hurting yourself in some way?Not at all,?Total Score?0.?Interpretation and Intervention?Depression Screening Findings?Negative,?Follow-Up for Depression?: review of PHQ-9 found negative result, no follow-up needed.?Communication Needs:?Communication Needs?Does the patient have a hearing impairment?No,?Does the patient have a vision impairment??Yes,?If yes, what is the vision impairment??Glasses,?Does the patient have a cognition impairment??No.?SDOH Questions:?SDOH Questions?In the past year have you been worried about losing housing??No,?In the past year have you or any family members you live with been unable to get any of the following when it was really needed? Check all that apply:?None.?Symptom(s):? patient is a 63 yo female here for annual visit with review of recent labs and follow up of chronic issues, started vaping and stopped smoking. no longer coughing. * ROS:?General/Constitutional:?Patient denies?fatigue , headache.?Change in appetite?denies.?Chills?denies.?Fever?denies.?Ophthalmologic:?Blurred vision?denies.?Discharge?denies.?Pain?denies.?ENT:?Patient denies?decreased sense of smell , any loss of taste , sore throat.?Decreased hearing?denies.?Sore throat?denies.?Swollen glands?denies.?Endocrine:?Cold intolerance?denies.?Excessive thirst?denies.?Heat intolerance?denies.?Weight loss?denies.?Respiratory:?Cough?denies.?Shortness of breath at rest?denies.?Shortness of breath with exertion?denies.?Wheezing?denies.?Cardiovascular:?Chest pain at rest?denies.?Chest pain with exertion?denies.?Irregular heartbeat?denies.?Shortness of breath?denies.?Gastrointestinal:?Abdominal pain?denies.?Change in bowel habits?denies.?Diarrhea?denies.?Nausea?denies.?Rectal bleeding?denies.?Vomiting?denies .?Genitourinary:?Blood in urine?denies.?Difficulty urinating?denies.?Frequent urination?denies.?Urinary incontinence?Denies.?Musculoskeletal:?Patient denies?muscle aches.?Painful joints?denies.?Weakness?denies.?Peripheral Vascular:?Patient denies?red and blue toes.?Skin:?Dry skin?denies.?Itching?denies.?Denies?Mole(s),? changes in moles, new moles or any lesions of concern.?Denies?Photosensitivity.?Rash?denies.?Neurologic:?Dizziness?denies.?Fainting?denies.?Headache?denies.? * Medical History:? * Surgical History:? * Hospitalization/Major Diagno stic Procedure:? * Family History:?Father: danay jalloh 89 yrs, diagnosed with Hypertension.?Mother: alive 78 yrs, diagnosed with Diabetes, Cancer.?1 brother(s) , 1 sister(s) . 1 son(s) . .? Denies mental health/substance abuse family history, No pertinent family medical history, Denies mental health/substance abuse family history. * Social History:?Tobacco Use:?Tobacco Use/Smoking?Patient is a?current smoker,?How often do you smoke cigarettes??every day,?How soon after you wake up do you smoke your first cigarette??6-30 minutes,?Are you interested in quitting??Not ready to quit,?Additional Findings: Tobacco User?Current cigarette smoker, not currently using another form of tobacco.?Drugs/Alcohol:?Alcohol Screen?Did you have a drink containing alcohol in the past year??Yes,?How often did you have a drink containing alcohol in the past year??4 or more times a week (4 points),?How many drinks did you have on a typical day when you were drinking in the past year??1 or 2 drinks (0 point),?How often did you have 6 or more drinks on one occasion in the past year??Never (0 point),?Points?4,?Interpretation?Positive.?Miscellaneous:?Caffeine: yes, frequency:, 1-2 cups per day. Children: yes. Community involvements: yes. no Exercise. Home smoke detector use: yes. Housing: owning. Living with: spouse. Marital status: single. Pets: none. no Travel outside of the [place]. ???Patient is vaping Vapor lasts 1 month. * Medications:?TakingFamotidin e 20 MG Tablet 1 tablet at bedtime as needed Orally Once a dayGabapentin 300 MG Capsule 2 capsule Orally HSrOPINIRole HCl 1 MG Tablet 1 tablet 1 to 3 hours before bedtime, also taking 2mg at betime Orally TIDBreo Ellipta 200-25 MCG/ACT Aerosol Powder Breath Activated [...] with primidoneyes[Allergies Verified] Objective: * Vitals:?Ht: 60.5, Wt:141, BM I:27.08, BP:112/70 weight is up 8 pounds since 11-21-23. * ???Past Orders: ???Lab:UA ClnCatch+Micro w/r flx Cult (Order Date - 05/05/2024) (Collection Date - 05/05/2024) ? Value Reference Range ?Color Urine Yellow - ?Appearance Urine Clear - ?PH 5.5 5.0-9.0 - ?Glucose Urine UA Negative Neg ative - mg/dL ?Urine Blood Moderate (2+) A Negativ e - ?Specific [place] - Urine 1.015 1.005-1.025 - ?Urine Protein Negative Neg-Tr soo - mg/dL ?Urine Ketones Negative Negati ve - mg/dL ?Nitrite Urine Negative Negati ve - ?Leukocyte Esterase Urine Trace A Negative - ?RBC Urine 6-10 A 0-2 - /HPF ?WBC Urine 6-10 A 0-5 - /HPF ?Squamous Epithelial Cell Urine 6-10 0-2 - /HPF ?Bacteria Urine None Seen None Seen - ?Hyaline Casts Urine 0-2 0-2 - /LPF ???Lab:Complete Blood Count Auto Diff (Order Date - 05/05/2024) (Collection Date - 05/05/2024) ? Value Reference Range ?White Blood Count 4.2 L 4. 8-10.8 - X10*3/uL ?Red Blood Count 4.15 L 4.20 -5.50 - X10*6/uL ?Hemoglobin 13.2 12.0-16.0 - g/dl ?Hematocrit 40.2 37.0-47.0 - % ?Mean Corpuscular Volume 96.9 80.0-98.0 - fL ?Mean Corpuscular Hemoglobin 31.8 27.0-33.0 - pg ?Mean Corpuscular HGB Conc 32.8 31.0-35.0 - g/dl ?Red Cell Distributio n Width 12.5 11.0-16.0 - % ?Platelet Count 280 160-4 00 - X10*3/uL ?Mean Platelet Volume 9.9 9.4-12.3 - fL ?Neutrophils Percent Auto 44.8 L 45-73 - % ?Imm Gran Pct Auto 0.2 0. 0-0.4 - % ?Lymphocytes Percent Auto 42.8 H 20-40 - % ?Monocytes Percent Auto 8.4 2-11 - % ?Eosinophils Percent Auto 2.6 0-4 - % ?Basophils Percent Auto 1.2 0-2 - % ?NRBC Pct Auto 0.0 0.0-0. 2 - /100WBC ?Neutrophils Absolute Auto 1.9 L 2.0-8.3 - x10*3/uL ?Imm Gran Abs Auto 0.01 0. 00-0.03 - X10*3/uL ?Lymphocytes Absolute Auto 1.8 1.2-4.9 - X10*3/uL ?Monocytes Absolute Auto 0.4 0.1-1.2 - X10*3/uL ?Eosinophils Absolute Auto 0.1 0.0-0.4 - X10*3/uL ?Basophils Absolute Auto 0.1 0.0-0.2 - X10*3/uL ?NRBC Abs Auto 0.000 0.0-0. 012 - X10*3/uL ???Lab:Comprehensive [place]. P dominick Fast (Order Date - 05/05/2024) (Collection Date - 05/05/2024) ? Value Reference Range ?Sodium 140 135-145 - mmo l/L ?Bilirubin Total 0.3 0.0- 1.0 - mg/dL ?Aspartate Amino Transferase 23 5-31 - U/L ?Alanine Aminotransferase 18 0-31 - U/L ?Total Protein 6.9 6.5-8. 0 - g/dL ?Albumin Level 4.0 3.5-5. 0 - g/dL ?Alkaline Phosphatase 64 39-117 - U/L ?Potassium 4.2 3.3-5.1 - mmol/L ?Chloride 103 96-108 - mm ol/L ?Carbon Dioxide 28 22-29 - mmol/L ?Anion Gap 13 12-20 - ?Blood Urea Nitrogen 10 9-16 - mg/dL ?Creatinine 0.71 0.5-1.4 - mg/dL ?Estimated Glomerular Filt Rate > 60 - ?Glucose Fasting 97 60-9 9 - mg/dL ?Calcium 8.8 8.4-10.2 - m g/dL ???Lab:IRON PROFILE (Order D ate - 05/05/2024) (Collection Date - 05/05/2024) ? Value Reference Range ?Iron 87 30-160 - mcg/dL ?Total Iron Binding Capacity 303 228-428 - mcg/dL ?Percent Iron Saturation 29 15-50 - % ?Unsaturated Iron Binding 216 - ug/dL ???Lab:Lipid Panel (Order Da te - 05/05/2024) (Collection Date - 05/05/2024) ? Value Reference Range ?Triglycerides 86 <150 - mg/dL ?Cholesterol 246 H <200 - m g/dL ?LDL Cholesterol Calculated 167 H <100 - mg/dL ?HDL Cholesterol 62 >40 - mg/dL * Examination: ???General Examination: ?GENERAL APPEARANCE:?well developed, well nourished, in no acute distress.?HEAD:?normocephalic, atraumatic.?EYES:?pupils equal, round, reactive to light and accommodation, sclera non-icteric.?EARS:?normal.?ORAL CAVITY:?mucosa moist.?THROAT:?clear.?NECK/THYROID:?neck supple, full range of motion, no cervical lymphadenopathy, no bruits.?SKIN:?warm and dry, no suspicious lesions.?HEART:?regular rate and rhythm, S1, S2 normal, no murmurs.?LUNGS:?clear to auscultation bilaterally.?BREASTS:?done by special warfare boat operator.?ABDOMEN:?soft, nontender, nondistended, bowel sounds present, normal, no organomegaly , no masses palpable.?RECTAL EXAM:?done by special warfare boat operator.?FEMALE GENITOURINARY:?done by special warfare boat operator.?EXTREMITIES:?no clubbing, cyanosis, or edema.?NEUROLOGIC:?nonfocal, motor strength normal upper and lower extremities, sensory exam intact.? Assessment: * Assessment: 1.?Annual physical exam - Z0 0.00 (Primary)?2.?Ophthalmic migraine - G43.109?3.?Gastroesophageal reflux disease without esophagitis - K21.9?4.?History of hematuria - Z87.448?5.?Smoker - F17.200?6.?Anxiety disorder, unspecified type - F41.9?7.?Depression screening - Z13.31? Plan: * Treatment: 2.?Ophthalmic migraine? Notes: not occuring frequently. has been evaluated by ophthalmology?? 3.?Gastroesophageal reflux d isease without esophagitis? Notes: had surgery, will contiue current regiment?? 4.?History of hematuria? Notes: has been evaluated, will continue to monitor?? 5.?Smoker? Notes: not willing to quit?? 6.?Anxiety disorder, unspeci fied type? Notes: stable, will continue current regiment?? 7.?Depression screening? Notes: negative screen?? * Procedure Codes:? * Preventive Medicine:? ??Counseling:?Smoking?Patient counseled on the dangers of tobacco use and urged to quit.?05/12/2024,?Patient Lifestyle Goals?Patient does not want to quit,?Treatment Goals?Suggested patient, Cut down by 1 cigarette a week,?Expected Outcome?achieving sustained abstinence from cigarettes, significantly reducing the risk of smoking-related diseases like lung cancer, heart disease, and stroke, experiencing improved lung function, better overall health, and potentially noticing positive changes in taste and smell within a relatively short time frame after quitting,?Self-Managment Goals?Suggested patient speak with family/friends about quitting and how they can help,?Barriers?patient is not willing to quit,?Set a Quit Date?suggested patient set a date in the future to stop smoking.? * Follow Up:?1 Year * * Sign off status: Completed true * Provider:?Jonny Roman MD Date:?1 07/13/2023 Generated for Tano fisher/Andre/Elsy on:?08/27/2024 01:11 PM EDT History and Physical [...] patient have a vision impairmen t?: Yes ?If yes, what is the vision impairment?: Glasses Does the patient have a cognition impair ment?: No Examination Category Sub-Category Detail Notes Category Not es General Examination GENERAL APPEARANCE: well dev eloped, well nourished, in no acute distress HEAD: normocephalic, atrau matic EYES: pupils equal, round, reactive to light and accommodation, sclera non- icteric EARS: normal THROAT: clear NECK/THYROID: neck supple, [...] cyanosi s, or edema BREASTS: done by special warfare boat operator RECTAL EXAM: done by special warfare boat operator FEMALE GENITOURINARY: done by special warfare boat operator ORAL CAVITY: mucosa moist
--- OUTSIDE RECORDS SUMMARY | 2024-08-27 13:12 | XMS_ITS ---
Author Organization Jonny Roman MD Address [address] [place] [phone] Care Team Providers Care Patrol Agent Name Role Phone Jonny Roman Primary Care Provider Results Component Value Reference Range Notes Complete Blood Count Auto Di ff Reviewed date:05/05/2024 05:03:11 PM Interpretation: Performing Lab:[facility], [address] [place] [phone] Notes/Report: White Blood Count 4.2 4.8-10.8 X10*3/uL [...] NRBC Abs Auto 0.000 0.0-0.012 X10*3/uL Comprehensive [place]. Panel Fa st Reviewed date:05/05/2024 05:05:13 PM Interpretation: Performing Lab:[facility], [address] [place] [phone] Notes/Report: Sodium 140 135-145 mmol/L Potassium 4.2 [...] PROFILE Reviewed date:05/05/2024 12:56:34 PM Interpretation: Performing Lab:[facility], [address] [place] [phone] Notes/Report: Iron 87 30-160 mcg/dL Total Iron Binding Capacity 303 228-428 mcg/d L Percent Iron Saturation 29 15-50 % Unsaturated Iron Binding 216 Lipid Panel Reviewed date:05/05/2024 12:57:29 PM Interpretation: Performing Lab:[facility], [address] [place] [phone] Notes/Report: Triglycerides 86 <150 mg/dL Desirable Triglyceride: [...] t Reviewed date:05/05/2024 04:58:06 PM Interpretation: Performing Lab:[facility], [address] [place] [phone] Notes/Report: Urine, Clean Catch Color Urine Yellow Appearance Urine Clear PH 5.5 5.0-9.0 Glucose Urine UA Negative Negative mg/dL Urine Blood Moderate (2+) Negative Specific [place] - Urine 1.015 1.005-1.025 Urine Protein Negative [...] Location Date Provider Diagnosis Jonny Roman MD [address] [place] [address] [place] [phone] 05/05/2024 Jonny Roman Blood tests for routine general physical examination Z00.00 and Other iron deficiency anemia D50.8 Assessments Encounter Date Diagnosis (ICD Code) Assessment Notes Treatment Notes Treatment Clinical Notes Section Notes 05/05/2024 Blood tests for routine general physical examination (ICD-10 - Z00.00) 05/05/2024 Other iron deficiency anemia (ICD-10 - D50.8) Plan Of Treatment Next Appt Details Provider Name:Jonny licea, 05/17/2025 07:00:00 AM, [address] [place] [address], [address], [phone], Provider Name:Jonny Lares iekevin, 05/24/2025 10:30:00 AM, [address] [place] [address], [address], [phone], Progress Notes * Delisa WILBURN LDOB:[birth year] (64 yo F)Acc No.[id number]:05/05/2024 Progress Note Patient:?Delisa WILBURN Provider:?Jonny Roman MD :1960???Age:63 Y???Sex:Female D ate:05/05/2024 Address:[address] [place] [address], [place], [phone] Subjective: * Chief Complaints: * ???1. FASTING LABS. * Medical History:? Objective: * Vitals:? Assessment: * Assessment: 1.?Blood tests for routine g eneral physical examination - Z00.00 (Primary)???2.?Other iron deficiency anemia - D50.8??? Plan: * Treatment: 2.?Other iron deficiency ane amena?LAB: Complete Blood Count Auto Diff (Collection Date & Time - 05/05/2024 08:00 AM) ?LAB: Comprehensive [place]. Panel Fast (Collection Date & Time - 05/05/2024 08:00 AM) ?LAB: IRON PROFILE (Collection Date & Time - 05/05/2024 08:00 AM) ?LAB: Lipid Panel (Collection Date & Time - 05/05/2024 08:00 AM) ?LAB: UA ClnCatch+Micro w/rflx Cult (Collection Date & Time - 05/05/2024 08:00 AM) * Procedure Codes:?52965 VENIP UNCT, ROUTINE* * * The named appointment provid er may or may not be the originator of this progress note, and it is not deemed complete until electronically signed by the appointment provider. Sign off status: Pending * Provider:?Jonny Roman MD Date:?1 07/06/2023 Generated for Tano fisher/Andre/eTglennsmitting on:?08/27/2024 01:12 PM EDT
== END 2024-08-27 11:52 | disposition home or self-care (01) ==
LOC: HO.MAMMO 11:51
PROVIDERS: PCP Internal Medicine; Visit Provider Internal Medicine
DX: Z12.31 Encounter for screening mammogram for malignant neoplasm of breast (principal)
CPT/HCPCS: 77063; 77067

== ENCOUNTER → 2024-08-27 12:00 | Outpatient (BNV) | payer MEDICARE, SELFPAY | PROVIDERS: PCP Internal Medicine; Visit Provider Internal Medicine | DX: Z12.31 Encounter for screening mammogram for malignant neoplasm of breast (principal) | CPT/HCPCS: 77063; 77067 ==

== ENCOUNTER 2024-11-05 12:01 | Outpatient (AMB) | payer OTHER, MEDICAID, SELFPAY ==
--- NOTE | 2024-11-05 12:06 | MHC.OFFVIS ---
Vital Signs 11/05/24 12:07 Height 5 ft Weight 141 lb BMI 27.5 BP 122/72 Blood Pressure Location Lt brachial Position Sitting Pulse 81 Pulse Oximetry (%) 96 Oxygen Delivery Method Room Air Intake Visit Reasons: 12 month follow up Intake Note: Patient yearly follow up for History of colon polyps. Patient denies any GI issues for today visit. Electrician Required: No Accompanied by: Self / Same As Patient Allergies iron [From VENOFER] Allergy (Severe, Verified 11/05/24 12:06) SWELLING iron infusion Allergy (Severe, Uncoded 11/14/22 11:43) hives Medication List - Last Reconciled 11/05/24 by Katia Haji MD albuterol sulfate 1 mg inhalation NEEDED PRN albuterol sulfate 90 mcg/actuation (Ventolin HFA) 2 puffs PO Q4H PRN cholecalciferol (vitamin D3) 250 mcg PO 2XW 90 days clonazepam 0.5 mg PO BID PRN famotidine 20 mg PO BID 90 days fluticasone furoate-vilanterol 200-25 mcg/dose (Breo Ellipta) 1 ea inhalation DAILY gabapentin 300 mg PO BEDTIME ropinirole 1 mg PO TID HPI HPI 12 month follow up: Details: GI clinic visit for this 64 [address] Roman for FU after an episode of acute diverticulitis in September 2021 Pt is status post Paraesophageal Hiatal hernia repair 10/[address] Erazo at [facility] (per pt it was an eight hour surgery) TODAY'S VISIT: Patient cc: Patient yearly follow up for History of colon polyps. Patient denies any GI issues for today visit. She denies recurrent episodes of diverticulitis over the past year Continues to have diarrhea alternating with constipation attributed to IBS. Can have a BM every other day and sometimes she can have an explosion Always suffered with irregular BMs - diarrhea is more frequent - 3-4 times a week. Has 1-2 Bms on days she has diarrhea. Tried taking Miralax and metamucil in the past without relief Advised to try psyllium husk. Disabled due to tremors and RLS. 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 PAST VISIT: Pt gives a hx of hiatal hernia repair - has not suffered from heartburn since the surgery. Not taking the Famotidine regularly and plans to start taking it. Continues to have constipation alternating with diarrhea - symptoms are manageable Eats small meals - usually one meal a day and snacks. Denies recurrent episode of diverticulitis. EGD and colon results reviewed with the patient. Had an episode of diverticulitis in Sep, 2022 and was sick for 8 days. She was seen at [place] and had a CT scan Unsure if she was treated with antibiotics. EGD and colon results reviewed. Denies abdominal pains Woke up with bad gas pains on . Took pept-obismol and Gas X and felt better. Noted left facial swelling with numbness and went to the ER at [facility]. Prescribed Augmentin x 14 days and will finish antibiotics today. Feels much better - no pain just some tenderness Facial swelling subsided after [address] Roman Had a cologuard in early May which was negative. [address] SCAN SHOWED: wall thickening of the distal stomach Mild hazziness around the duodenum. Patient denies symptoms of heartburn, dysphagia, nausea, vomiting, change in appetite or weight.? Denies recent change in bowel habits, constipation, diarrhea, black stools or rectal bleeding. (Black stools and black vomiting prior to hiatal hernia surgery) Has diarrhea alternating with constipation - no BM for a day or two. Patient denies major cardiac or pulmonary problems, admits to loud snoring and denies sleep apnea Has RLS. Problems with anesthesia in the past - hard time waking up from anesthesia. Smokes 3/4 of a pack a day and trying to cut down. Drinks socially. Denies being on chronic anticoagulation - tylenol or Ibuprofen prn for HAs of joint pains. 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 Patient denies known family history of colon polyps, colon cancer or other GI malignancies. Mom had 18 of colon removed due to diverticulitis IMAGING STUDIES:? 10/24/[address] SCAN AT [facility] SHOWED: Short segment of distal sigmoid colon with thickened wall and adjacent diverticula with trace pelvic fluid and pericolonic fat stranding.? Sigmoid colon in cul de sac. ENDOSCOPIC STUDIES: 12/2022 EGD AND COLON SHOWED: Endoscopy Findings: ESOPHAGUS:? GE junction at 32 cms, hiatal hernia 32 to 35 cms. Minimal focal esophagitis at GE junction with two 3-4 mm healing erosions. A 1 cms tongue of possible Ochoa's - biopsied. STOMACH: Antral gastritis DUODENUM:? A small diverticulum in the medial wall of 3rd part of duodenum. Biopsies were obtained from descending duodenum to check for celiac sprue Colonoscopy Findings: One medium sized polyp removed Moderate to severe diverticulosis seen in the left colon Small hemorrhoids on retroflexed exam. Plan: Repeat Colonoscopy interval based on path results - in 3 years if polyps are adenomatous and 5 years if polyps are hyperplastic (due to a hx of adenomatous colon polyps). 12/2021 EGD AND COLON SHOWED: ESOPHAGUS: GE junction at 35 cms.? Irregular Z line with two healing erosions and a 1 cms tongue of possible Ochoa's - biopsied STOMACH: Moderate gastric erythema. Biopsies were obtained. Colonoscopy Findings: Two large to medium sized polyps removed Moderate to severe diverticulosis seen in the left colon Moderate hemorrhoids on retroflexed exam. Plan:? Repeat Colonoscopy interval based on path results - in 1 year if polyps are adenomatous (to check polypectomy site in the AC) and 10 years if polyps are hyperplastic. Pt needs GA for future colonoscopies since she was difficult to sedate and remained very restless and moved around on the strecher during the procedure. BIOPSIES SHOWED: A.? Stomach, antrum, biopsy:? Antral-type mucosa with mild chronic inactive inflammation; no Helicobacter organisms seen. B.? Esophagus, distal, biopsy: - Cardiac-type mucosa with moderate chronic, focally active, inflammation; no intestinal metaplasia seen. - Chronic active esophagitis (rare eosinophil). C.? Colon, mid ascending, polypectomy:? Sessile serrated polyp. D.? Colon, ascending at 80 cm, polypectomy:? Fragments of sessile serrated polyp. E.? Colon, left, biopsy:? Colonic mucosa within normal limits; negative for microscopic colitis. [address] Renee showed: 1.? GERD 2.? Large hiatall hernia 2010 EGD and colonoscopy were performed by Dr. Renee: A small hyperplastic polyp was removed and diverticulosis was detected.? PENDING SALE TO [facility] Medical History (Updated 01/24/23 @ 10:01 by Katia Haji MD) Adrenal adenoma Hx of complications due to general anesthesia Osteopenia Essential tremor GERD (gastroesophageal reflux disease) RLS (restless legs syndrome) Asthma Surgical History History of repair of hiatal hernia History of meniscectomy of left knee Hx of arthroscopy Hx of carpal tunnel repair History of esophagogastroduodenoscopy (EGD) Hx of colonoscopy Family History Father HTN (hypertension) Mother Diabetes Cancer Social History Household Members: Spouse and Children Alcohol intake: current Alcohol intake frequency: holidays/special occasions only Patient Tobacco Use Status: Current everyday Tobacco user Tobacco use type: Cigarette Cigarette Packs Per Day: 0.75 Cigarettes Per Day: 15 Review of Systems Const Denies fever(s), Denies headache(s), Reports weight gain (of 8 lbs) and Denies weight loss Eyes Denies eye discharge and Denies irritation ENT Reports Normal hearing present, Denies dysphagia, Denies dizziness and Denies headache(s) Card Denies chest pain, Denies leg edema and Denies dyspnea on exertion Resp Denies cough, Denies dyspnea on exertion and Denies wheezing GI Denies abdominal pain, Denies change in bowel habits, Denies dysphagia, Reports early satiety and Denies heartburn Denies difficulty voiding and Denies dysuria Musc Denies back pain, Reports arthralgias and Reports other (arthritis) Skin/Breast Denies pruritus, Denies rash and Denies jaundice Neuro Reports Normal hearing present, Denies Abnormal speech present, Denies dizziness, Denies headache(s) and Denies seizure-like activity Psych Denies anxiety, Denies depression and Denies panic attacks Endo Denies cold intolerance, Denies flushing and Denies heat intolerance Ronnie/Lymph Denies easy bleeding and Denies easy bruising Aller/Immun Denies wheezing Physical Exam Vital Signs: Oxygen Delivery Method Room Air 11/05/24 12:07 BMI result Body Mass Index 27.5 Const General: healthy appearing and no acute distress Nutritional Appearance: overweight Orientation/consciousness: patient oriented x3 Limitations: no limitations HEENT Head: Yes normal to inspection Ears: hearing grossly normal bilaterally Eyes Sclerae: sclerae normal Pupils: Equal, round and reactive pupils present Neck Neck: Yes normal visual inspection Chest Chest palpation & inspection: normal inspection of the chest Resp Effort & Inspection: normal respiratory effort Auscultation: clear to auscultation bilaterally Cardio Palpation: normal PMI Rate: regular rate Rhythm: regular rhythm Heart sounds: S1 normal heart sound present, S2 normal heart sound present and no murmurs GI Palpation (GI): Soft to palpation, Tenderness to palpation present (GI) (mild LLQ discomfort on palpation) and No hepatosplenomegaly present Auscultation: normal bowel sounds Rectal Exam - Female: deferred Skin General skin exam: no rashes or lesions noted Neuro General: patient oriented x3, gait normal and moves all extremities Cranial nerves: Yes Equal, round and reactive pupils present and Yes Normal hearing present Speech: No Abnormal speech present Psych Appearance: grossly normal Mental Status: mental status grossly normal Assessment & Plan Assessment & Plan (1) Acute diverticulitis: Code(s): K57.92 - Diverticulitis of intestine, part unspecified, without perforation or abscess without bleeding Category: Medical (2) IBS (irritable bowel syndrome): Code(s): K58.9 - Irritable bowel syndrome, unspecified Category: Medical (3) History of colon polyps: Comment: 12/2021 Colonoscopy showed: Colonoscopy Findings: Two large to medium sized sessile serrated polyps removed Moderate to severe diverticulosis seen in the left colon Moderate hemorrhoids on retroflexed exam. 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 Pt was advised to take a fibre supplement daily 12/2022 upper endoscopy and same day colonoscopy was performed (past CT scan showed wall thickening of the distal stomach and mild hazziness around the duodenum, FU of diverticulitis) and findings as noted above. 12/2022 Colonoscopy showed: One medium sized tubular adenoma was removed Moderate to severe diverticulosis seen in the left colon Small hemorrhoids on retroflexed exam. Plan: Repeat Colonoscopy in 3 years (due 12/2025). 11/21/23 Denies recurrent episodes of diverticulitis over the past year Continues to have diarrhea alternating with constipation. Always suffered with irregular BMs - diarrhea is more frequent - 3-4 times a week. Has 1-2 Bms on days she has diarrhea. Tried taking Miralax and metamucil in the past without relief Advised to try psyllium husk. 11/05/24 She denies recurrent episodes of diverticulitis over the past year Continues to have diarrhea alternating with constipation attributed to IBS. Tried taking Miralax and metamucil in the past without relief Advised to try psyllium husk 1-2 times daily. Fu in 9 months Medications: Refilled famotidine 20 mg PO BID 90 days 180 tabs 2RF K21.9 - Gastro-esophageal reflux disease without esophagitis cholecalciferol (vitamin D3) 250 mcg PO 2XW 90 days 26 caps 1RF E55.9 - Vitamin D deficiency, unspecified Coding Level of Care Code Est Pt Level 4 (09446) Diagnoses Acute diverticulitis K57.92 IBS (irritable bowel syndrome) K58.9 History of colon polyps Z86.010 Time Spent (min) 21
[2024-11-05 12:07] VITALS: BP 122/72; PULSE 81; O2SAT 96; BMI 27.5
--- OUTSIDE RECORDS SUMMARY | 2024-11-05 14:06 | XMS_ITS | Clinical Summary ---
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
== END 2024-11-05 12:40 | disposition home or self-care (01) ==
LOC: HO.HGI 12:01
PROVIDERS: PCP Internal Medicine; Visit Provider Internal Medicine Gastroenterology
DX: K57.92 Diverticulitis of intestine, part unspecified, without perforation or abscess without bleeding (principal); K58.9 Irritable bowel syndrome, unspecified; Z86.0100 Personal history of colon polyps, unspecified
CPT/HCPCS: 99214

== ENCOUNTER → 2024-11-05 12:01 | Outpatient (BNVA) | payer MEDICARE, SELFPAY | PROVIDERS: PCP Internal Medicine; Visit Provider Internal Medicine Gastroenterology | DX: K57.92 Diverticulitis of intestine, part unspecified, without perforation or abscess without bleeding (principal); K58.9 Irritable bowel syndrome, unspecified; Z86.0100 Personal history of colon polyps, unspecified | CPT/HCPCS: 99212 ==

== ENCOUNTER 2025-02-11 15:48 | Outpatient (REF) | payer MEDICARE, SELFPAY ==
--- OUTSIDE RECORDS SUMMARY | 2023-09-24 14:53 | XMS_ITS | Encounter Summary ---
Author Organization [facility] Address Critical access hospital [facility] [address] [place] [phone] Phone Care Team Providers Care Diesel Tractor Operator Name Role Phone Jonny Roman MD Primary Care Provider Encounter Details Date Type Department Care Team (Late st Contact Info) Description 09/24/2023 2:53 PM EDT Hospital Encounter [facility] [address] [place] [address] Cyndi Cheatham FNP [address] [place] [phone] [email or web address] Social History Tobacco Use Types Packs/Day Years Used Date Smoking Tobacco: Every Day Cigarettes Smokeless Tobacco: Never Alcohol Use Standard Drinks/Week Comments Yes 14 [...] PM EST documented as of this encounter Functional Status * Calculated C-SSRS Risk Score (Lifetime/Recent) Answer Date of Assessment Author No Risk Indicated 09/24/2023 4:51 PM EDT Jennifer Martinez, MAGDI * [place] Suicide Severity Rating Scale (Screener/Recent Self-Report) Question Answer Date of Assessment Author 1. Wish to be (Past 1 Month) No 09/24/2023 4:51 PM EDT Jennifer Martinez, MAGDI 2. Non-Specific Active Suici dagoberto Thoughts (Past 1 Month) No 09/24/2023 4:51 PM EDT Jennifer Martinez, MAGDI 6. Suicidal Behavior (Lifetime) No 4:51 PM EDT Jennifer Martinez, RN documented as of this encounter Plan of [...] clinician's provided indication for this examination in [facility]: Cough; dyspnea, wheezing, chest tightness, hx asthma, [...] clinician's provided indication for this examination in [facility]:Cough; dyspnea, wheezing, chest tightness, hx asthma, smoker, flew 2 weeksago COMPARISON: None available. FINDINGS: Devices/Tubes/Lines: None. Lungs: No focal consolidation or pulmonary edema. Pleura: No pleural effusion or pneumothorax. Heart/Mediastinum: The heart and mediastinum are normal. Bones/Soft Tissues: No acute osseous abnormality. IMPRESSION: No acute abnormality. Cyndi Cheatham GROUP CHIEF OPERATOR IMG XR CHEST Final Resul t documented in this encounter Visit Diagnoses Not on filedocumented in this encounter Additional Health Concerns Infection Onset Date Last Indicated Resolved Time CoV-Risk 09/24/2023 09/24/2023 10/05/2023 1:22 AM EDT Assessment Noted Time PHQ-2 Depression Total Score: 0 08/22/19 8:49 AM EDT documented as of this encounter Care Teams Diesel Tractor Operator Relationship Specialty Start Date End Date Jonny Roman MD [address] [place] [address] [place] [address] PCP - General Internal Medicine 07/06/22 documented as of this encounter Additional Source Comments The information contained in this document represents components of the legal health record. It is not the complete legal health record.[facility]
[2025-02-11 16:07] LABS: Appearance Urine Turbid; Glucose Urine UA Negative (Negative); PH 6.5 (5.0-9.0); Specific Gravity - Urine 1.020 (1.005-1.025); UMIC TRIGGER UACC YES
[2025-02-11 16:13] LABS: UACC Culture Trigger YES
--- OUTSIDE RECORDS SUMMARY | 2025-02-11 16:58 | XMS_ITS | Clinical Summary ---
Author Organization [facility] Address [address] [place] [address] Care Team Providers Care Utility Hand Name Role Phone Jonny Roman MD Primary Care Provider [phone]- [phone] Social History Tobacco Use Types Packs/Day Years [...] (1 of 2) 2010 Influenza Vaccine (#1) 2025 Pneumococcal Vaccine (1 of 1 - [...] age to complete this topic Care Teams Utility Hand Relationship Specialty Start Date End Date Jonny Roman MD [address] [place] [address] PCP - General Internal Medicine 03/23/20
--- OUTSIDE RECORDS SUMMARY | 2025-02-11 16:58 | XMS_ITS | Encounter Summary ---
Author Organization [facility] Address [address] [place] [address] [place] [phone] Phone Care Team Providers Care Sprinkling System Irrigator Name Role Phone Jonny Roman MD Primary Care Provider Encounter Details Date Type Department Care Team (Late st Contact Info) Description 08/31/2022 Transcribe Orders [facility] Specimen Processing [address] [place] [address] Juan Marie MD [address] [place] [address] Endocrinology, Diabetes [place] [address] [email or web address] Adrenal mass (Primary Dx) Social History Tobacco Use Types Packs/Day Years Used Date Smoking Tobacco: Every Day Cigarettes Smokeless Tobacco: Never Comments Unknown Sex and Gender Information Value Date Recorded Sex Assigned at Female 07/06/2022 12:23 PM EST Legal Sex Female 9:48 PM EDT Gender Identity Female 07/06/2022 12:14 PM EST Sexual Orientation Straight 07/06/2022 12 :23 PM EST documented as of this encounter Plan of Treatment Not on file documented as of this encounter Results * (ABNORMAL) DHEA-SULFATE (08/31/2022 8:14 AM EDT) DHEAS 201(H) 9.7 - 159 mcg/dL [facility] MED[facility] SUPER[facility] 08/31/2022 8:14 AM EDT 08/31/2022 9:27 AM EDT us Juan Marie MD LAB BLOOD ORDERABLES Final Resul t [facility] MED/PATH SUPERIOR [address] [place] [address] documented in this encounter Visit Diagnoses Diagnosis Adrenal mass- Primary Unspecified disorder of adrenal glands documented in this encounter Additional Health Concerns Infection Onset Date Last Indicated Resolved Time CoV-Risk 09/24/2023 09/24/2023 10/05/2023 1:22 AM EDT Assessment Noted Time PHQ-2 Depression Total Score: 0 08/22/19 8:49 AM EDT documented as of this encounter Care Teams Sprinkling System Irrigator Relationship Specialty Start Date End Date Jonny Roman MD [address] [place] [address] [place] [address] PCP - General Internal Medicine 07/06/22 documented as of this encounter Additional Source Comments The information contained in this document represents components of the legal health record. It is not the complete legal health record.[facility]
--- OUTSIDE RECORDS SUMMARY | 2025-02-11 16:58 | XMS_ITS | Clinical Summary ---
Author Organization [facility] Address [address] [place] [phone] Phone Care Team Providers Care Inventory Control Analyst Name Role Phone Jonny Roman MD Primary Care Provider Allergies Active Allergy Reactions Criticality Noted Date Comments Ferrous Sulfate 09/24/2023 Other Reaction(s): hives Prednisone Hallucinations High 05/03/2022 Other Reaction(s): hallucinations, states when taken with primidone. States she can take prednisone without primidone with no reaction many times without side effects. Medications albuterol 90 mcg/actuation inhaler 2 puffs every 4 (four) hours as needed. 3 Active cholecalciferol , vitamin D3, (VITAMIN D3) 250 mcg (10,000 unit) capsule Take 10,000 Units by mouth once a week. 3 Active clonazePAM (KLONOPIN) 0.5 MG tablet TAKE 1 TABLET BY MOUTH TWICE DAILY DIRECTED NEEDED 3 Active BREO ELLIPTA 200-25 mcg/dose inhaler INHALE 1 PUFF INTO THE LUNGS EVERY DAY FOR 30 DAYS 3 Active gabapentin (NEURONTIN) 300 MG capsule 2 capsule Active rOPINIRole (REQUIP) 1 MG tablet Take 1 mg by mouth 3 (three) times a day. 3 Active varenicline (CHANTIX RADU) 0.5 mg (11)- 1 mg (42) tablet TAKE 0.5 MG BY MOUTH DIRECTED ONCE A DAY FOR 5 DAYS THEN 0.5 MG TWICE A DAY FOR ONE WEEK THEN 1 MG TWICE A DAY 30 DAYS Active albuterol 90 mcg/actuation inhaler Take 2 puffs by mouth every 4 (four) hours as needed. Active ofloxacin (OCUFLOX) 0.3 % ophthalmic solution as directed Ophthalmic 2 drops both eyes 4 times per day for 7 days 4 Active ibuprofen (ADVIL,MOTRIN) 800 MG tablet 1 tablet with food or milk as needed Orally Three times a day for 30 Active famotidine (PEPCID) 20 MG tablet 1 tablet at bedtime as needed Orally Once a day for 30 day(s) Active Active Problems No known active problems Immunizations Immunization Administration Dates Next Due COVID-19 (Pre-03/18) Moderna Vaccine, mRNA, PF 04/23/2023,04/02/2022 DT 12/18/2010 Hiv 09/24/2020 INFLUENZA, SPLIT VIRUS, TRIVALENT PF 04/25/2021, 03/28/2017,02/27/2016 Influenza Quadrivalent MDCK Preservative Free IM 04/02/2022 Influenza Quadrivalent Preservative Free IM 03/28,03/05/2020,02/25/2019 Pneumococcal polysaccharide PPSV23 03/05/2020 Tdap 12/18/2010 Social History Tobacco Use Types Packs/Day Years Used Date Smoking Tobacco: Every Day Cigarettes Smokeless Tobacco: Never Tobacco Cessation:Ready to Q uit: Not Asked; Counseling Given: Not Answered Alcohol Use Standard Drinks/Week Comments Yes 14 [...] Orientation Straight 07/06/2022 12 :23 PM EST Last Filed Vital Signs Vital Sign Reading Time Taken Comments Blood Pressure 134/80 09/24/2023 9:33 PM EDT Pulse 78 09/24/2023 9:33 PM EDT Temperature 37.1 C (98.7 F) 09/24/2023 9:33 PM EDT Respiratory Rate 18 09/24/2023 9:33 PM EDT Oxygen Saturation 95% 09/24/2023 9:33 PM EDT Inhaled Oxygen Concentration - - Weight 61.2 kg (135 lb) 09/24/2023 4:48 PM EDT Height 152.4 cm (5') 09/24/2023 4:48 PM EDT Body Mass Index 26.37 09/24/2023 4:48 PM EDT Plan of Treatment Health Maintenance Due Date Last Done Comments LIPID PANEL 1960 SMOKING Hx and SMOKELESS TOBACCO SCREENING 1973 HEPATITIS C SCREENING 1978 HIV ONE-TIME SCREENING (18-65 YEARS) 1978 PAP SMEAR 1981 COLOGUARD 2005 COLONOSCOPY 2005 COLORECTAL CANCER SCREENING 2005 FIT TEST 2005 FOBT 2005 SIGMOIDOSCOPY 2005 VIRTUAL COLONOSCOPY 2005 ZOSTER VACCINES (1 of 2) 2010 Adult Td,Tdap Booster 12/18/2020 12/18/2010 PNEUMOCOCCAL VACCINES (50+ years) (2 of 2 - PCV) 03/05/2021 03/05/2020 MAMMOGRAM 08/11/2023 08/10/2021 DEPRESSION SCREENING 08/22/2023 08/21/2022 INFLUENZA VACCINE (#1) 2024 , 04/02/2022, 04/25/2021, Additional history exists COVID-19 VACCINE ( season) 2025 04/23/2023, 04/23/2023, 04/02/2022, Additional history exists SCREENING FOR DIABETES 09/23/2026 09/24/2023 RSV VACCINE (1 - 1-dose 75+ series) 2035 HEPATITIS A VACCINES Aged Out No long er eligible based on patient's age to complete this topic HIB VACCINES Aged Out No longer eligi ble based on patient's age to complete this topic MENINGOCOCCAL VACCINES (ACWY) Aged Out No longer eligible based on patient's age to complete this topic MENINGOCOCCAL VACCINES (B) Aged Out N o longer eligible based on patient's age to complete this topic Medical Devices Not on file Procedures Procedure Name Priority Date/Time Associated Diagnosis Comments BI MAMMOGRAM OUTSIDE (NO INTERPRETATION) Routine 08/10/2021 12:00 AM EDT from Last 3 Months or Most Recently Relevant to Health Maintenance Results * Mammogram Outside (No Interpretation) (08/10/2021 12:00 AM EDT) Narrative CRISELDA_GELACIOH - 08/29/2022 10:03 AM EDT This study is for PACS storage only and not for interpretation. Juan Marie MD IMG OUTSIDE IMAGING W/OUT INTERP RETATION Final Result [facility]CIPIO_[facility] from Last 3 Months or Most Recently Relevant to Health Maintenance Insurance [facility] CARE MEDICARE REPLACEMENT ONE CARE MEDICARE REPLACEMENT ONE CARE MEDICARE REPLACEMENT ONE CARE MEDICARE [place] [address] [place] [address] CARE [address]ICARE [address] [place] [address] MEDICARE REPLACEMENT Care Teams Inventory Control Analyst Relationship Specialty Start Date End Date Jonny Roman MD [address] [place] [address] [place] [address] PCP - General Internal Medicine 07/06/22 Additional Source Comments The information contained in this document represents components of the legal health record. It is not the complete legal health record.[facility]
--- OUTSIDE RECORDS SUMMARY | 2025-02-11 16:58 | XMS_ITS | Encounter Summary ---
Author Organization [facility] Address [address] [place] [phone] Phone Care Team Providers Care Stallion Manager Name Role Phone Jonny Roman MD Primary Care Provider Encounter Details Date Type Department Care Team (Late st Contact Info) Description 08/29/2022 Transcribe Orders [facility] [address] [address] Unknown, Unknown, Social History Tobacco Use Types Packs/Day Years [...] documented as of this encounter Results * DXA Outside (No Interpretation) (08/10/2021 12:05 AM EDT) Narrative CRISELDA_GELACIOH - 08/29/2022 10:06 AM EDT This study is for PACS storage only and not for interpretation. us Juan Marie MD IMG OUTSIDE IMAGING W/OUT INTERP RETATION Final Result [facility] documented in this encounter Visit Diagnoses Not on filedocumented in this encounter Additional Health Concerns Infection Onset Date Last Indicated Resolved Time CoV-Risk 09/24/2023 09/24/2023 10/05/2023 1:22 AM EDT Assessment Noted Time PHQ-2 Depression Total Score: 0 08/22/19 8:49 AM EDT documented as of this encounter Care Teams Stallion Manager Relationship Specialty Start Date End Date Jonny Roman MD [address] [place] [address] [place] [address] PCP - General Internal Medicine 07/06/22 documented as of this encounter Additional Source Comments The information contained in this document represents components of the legal health record. It is not the complete legal health record.[facility]
== END 2025-02-11 15:49 | disposition home or self-care (01) ==
LOC: HO.LNP 15:48
PROVIDERS: Visit Provider Internal Medicine
DX: N39.0 Urinary tract infection, site not specified (principal)
CPT/HCPCS: 81001; 87086; 87088; 87186

== ENCOUNTER 2025-05-14 10:34 | Outpatient (REF) | payer MEDICARE, SELFPAY ==
--- OUTSIDE RECORDS SUMMARY | 2023-09-24 13:53 | XMS_ITS | Encounter Summary ---
Author Organization [facility] Address [facility] [address] [place] [phone] Phone Care Team Providers Care Quality Control Lead Name Role Phone Jonny Roman MD Primary Care Provider Encounter Details Date Type Department Care Team (Late st Contact Info) Description 09/24/2023 2:53 PM EDT Hospital Encounter [facility] [address] [place] [id number] Cyndi Cheatham FNP [address] [place] [id number] [email or web address] Social History Tobacco Use Types Packs/Day Years Used Date Smoking Tobacco: Former Cigarettes Smokeless Tobacco: Current Alcohol Use Standard Drinks/Week Comments Yes 14 (1 standard drink = 0.6 oz pu re alcohol) Education Answer Date Recorded Are you interested in more education? Not on amie e 09/21/2022 Are you concerned about learning? Not on file 09/21/2022 No 09/21/2022 No 09/21/2022 Digital Access Answer Date Recorded No 10/22/2022 No 10/22/2022 Reliable internet access at home? Not on file 10/22/2022 Device with a working camera? Not on file Intimate Partner Violence Answer Date R ecorded Are you denied basic needs s uch as food, clothing, or medical care? No 09/24/2023 In the past 12 months have y ou been in a relationship with a person who hurts, threatens, or tries to control you? No 09/24/2023 Are you denied basic needs s uch as food, clothing, or medical care? No 09/24/2023 In the past 12 months have y ou been in a relationship with a person who hurts, threatens, or tries to control you? No 09/24/2023 Comments No Sex and Gender Information Value Date Recorded Sex Assigned at Female 07/06/2022 12:23 PM EST Legal Sex Female 9:48 PM EDT Gender Identity Female 07/06/2022 12:14 PM EST Sexual Orientation Straight 07/06/2022 12 :23 PM EST documented as of this encounter Plan of Treatment Not on file documented as of this encounter Procedures Procedure Name Priority Date/Time Associated Diagnosis Comments XR CHEST PA AND LATERAL 2 VIEWS Urgent/patient waiting 09/24/2023 2:57 PM EDT Dyspnea, unspecified type documented in this encounter Results * XR CHEST PA AND LATERAL 2 VIEWS (09/24/2023 2:57 PM EDT) Anatomical Region Laterality Modality Chest Computed Radiogr aphy 09/24/2023 3:21 PM EDT Impressions 09/24/2023 3:21 PM EDT No acute abnormality. Narrative 09/24/2023 3:21 PM EDT XR CHEST PA AND LATERAL 2 VIEWS Referring clinician's provided indication for this examination in [facility]: Cough; dyspnea, wheezing, chest tightness, hx asthma, smoker, flew 2 weeks ago COMPARISON: None available. FINDINGS: Devices/Tubes/Lines: None. Lungs: No focal consolidation or pulmonary edema. Pleura: No pleural effusion or pneumothorax. Heart/Mediastinum: The heart and mediastinum are normal. Bones/Soft Tissues: No acute osseous abnormality. Procedure Note Sylvester Wilkinson MD, MBBS - 09/24/2023 XR CHEST PA AND LATERAL 2 VIEWS Referring clinician's provided indication for this examination in [facility]:Cough; dyspnea, wheezing, chest tightness, hx asthma, smoker, flew 2 weeksago COMPARISON: None available. FINDINGS: Devices/Tubes/Lines: None. Lungs: No focal consolidation or pulmonary edema. Pleura: No pleural effusion or pneumothorax. Heart/Mediastinum: The heart and mediastinum are normal. Bones/Soft Tissues: No acute osseous abnormality. IMPRESSION: No acute abnormality. Cyndi Cheatham SACK CLEANER IMG XR CHEST Final Resul t documented in this encounter Visit Diagnoses Not on filedocumented in this encounter Additional Health Concerns Infection Onset Date Last Indicated Resolved Time CoV-Risk 09/24/2023 09/24/2023 10/05/2023 1:22 AM EDT Assessment Noted Time PHQ-2 Depression Total Score: 0 08/22/19 8:49 AM EDT documented as of this encounter Care Teams Quality Control Lead Relationship Specialty Start Date End Date Jonny Roman MD [address] [place] [address] [place] [address] PCP - General Internal Medicine 07/06/22 documented as of this encounter Additional Source Comments The information contained in this document represents components of the legal health record. It is not the complete legal health record.[facility]
--- OUTSIDE RECORDS SUMMARY | 2023-11-21 04:15 | XMS_ITS ---
Author Organization Jonny Roman MD Address [address] [place] [phone] Care Team Providers Care Knitter Helper Name Role Phone Jonny Roman Primary Care Provider Allergies Allergen (clinical drug ingredient) Drug/Non Drug Allergy documented on EMR Reaction Allergy Type Onset Date Status PredniSONE had hallucinatio n with primidone Drug Allergy Active ferrous sulfate iron infusion (uncoded) hives Allergy Active REASON FOR VISIT 6 MO F/U Medications Medication SIG (Take, Route, Frequency, Duration) Notes Start Date End Date Status rOPINIRole HCl 1 MG 1 tablet 1 to 3 hour s before bedtime, also taking 2mg at betime Orally TID Active Ocuflox 0.3 % as directed Ophthalm ic 2 drops both eyes 4 times per day for 7 days 09/10/2023 Not-Taking Famotidine 20 MG 1 tablet at bedtime as needed Orally Once a day for 30 day(s) Active Gabapentin 300 MG 2 capsule Orally HS Active Ondansetron HCl 4 MG 1 tablet Orally 3 t imes a day as needed a day for 7 days 10/30/2021 Not-Taking KlonoPIN 0.5 MG 0.5 tablet Orally PRN Not-Taking Albuterol Sulfate HFA 108 (90 Base) MCG/ACT TAKE 2 PUFFS BY MOUTH EVERY 4 HOURS NEEDED Active Albuterol Sulfate 0.63 MG/3ML 3 ml as needed Inhalation every 6 hrs for 14 days 06/16/2015 Not-Taking Breo Ellipta 200-25 MCG/ACT 1 puff Inhalation Once a day 07/05/2023 Active Ibuprofen 800 MG 1 tablet with food o r milk as needed Orally Three times a day for 30 Not-Taking Vital Signs Blood pressure systolic 112 mm Hg 11/21/19 24 Blood pressure diastolic 70 mm Hg 024 Height 60.5 in 11/21/2023 Weight 133 lbs 11/21/2023 BMI 25.54 kg/m2 11/21/2023 weight is down 4 pounds [facility] e 10-01-23 Encounters Encounter Location Date Provider Diagnosis Jonny Roman MD [address] [place] [address] [place] [phone] 11/21/2023 Jonny Roman Mild intermittent asthma with acute exacerbation J45.21 and Gastroesophageal reflux disease without esophagitis K21.9 Assessments Encounter Date Diagnosis (ICD Code) Assessment Notes Treatment Notes Treatment Clinical Notes Section Notes 11/21/2023 Mild intermittent asthma with acute exacerbation (ICD-10 - J45.21) doing great, will continue current regiment 11/21/2023 Gastroesophageal reflux disease without esophagitis (ICD-10 - K21.9) stable, will continue current regiment Plan Of Treatment Medication Medication Name Sig Start Date Stop Date Notes Albuterol Sulfate HFA 108 (9 0 Base) MCG/ACT TAKE 2 PUFFS BY MOUTH EVERY 4 HOURS NEEDED Breo Ellipta 200-25 MCG/ACT 1 puff Inhalation Once a day 0 07/05/2023 Treatment Notes Assessment Notes Mild intermittent asthma wit h acute exacerbation doing great, will continue current regiment Gastroesophageal reflux dise ase without esophagitis stable, will continue current regiment Next Appt Details Provider Name:Jonny Lares ier, 05/24/2025 10:30:00 AM, [address] [facility], [address], [place], [place], [phone], Progress Notes * Delisa WILBURN LDOB:[birth year] (63 yo F)Acc No.[id number]:11/21/2023 Progress Notes Patient: Delisa Mandujano Provider: Td Roman MD :1960 A ge:63 Y S ex:Female Date:11/21/2023 Address:[address] [place] [address], [facility] Subjective: * Chief Complaints: * 6 MO F/U * HPI: S ymptom(s): patient is a 63 yo male here for 6 month follow up visit. * ROS: G eneral/Constitutional: Denies C hills. D enies F atigue. D enies F ever. D enies H eadache. E NT: Patient denies d ecreased sense of smell , any loss of taste , sore throat. D enies S ore throat. R espiratory: Denies C ough. D enies S hortness of breath at rest. D enies S hortness of breath with exertion. G astrointestinal: Denies D iarrhea. D enies N ausea. M usculoskeletal: Patient denies m uscle aches. P eripheral Vascular: Patient denies r ed and blue toes. * Medical History: * Surgical History: * Hospitalization/Major Diagno stic Procedure: * Medications: T akingFamotidine 20 MG Tablet 1 tablet at bedtime as needed Orally Once a dayGabapentin 300 MG Capsule 2 capsule Orally HSrOPINIRole HCl 1 MG Tablet 1 tablet 1 to 3 hours before bedtime, also taking 2mg at betime Orally TIDAlbuterol Sulfate HFA 108 (90 Base) MCG/ACT Aerosol Solution TAKE 2 PUFFS BY MOUTH EVERY 4 HOURS NEEDED Breo Ellipta 200-25 MCG/ACT Aerosol Powder Breath Activated 1 puff Inhalation Once a dayTaking Famotidine 20 MG Tablet 1 tablet at bedtime as needed Orally Once a dayTaking Gabapentin 300 MG Capsule 2 capsule Orally HSTaking rOPINIRole HCl 1 MG Tablet 1 tablet 1 to 3 hours before bedtime, also taking 2mg at betime Orally TIDTaking Albuterol Sulfate HFA 108 (90 Base) MCG/ACT Aerosol Solution TAKE 2 PUFFS BY MOUTH EVERY 4 HOURS NEEDED Taking Breo Ellipta 200-25 MCG/ACT Aerosol Powder Breath Activated 1 puff Inhalation Once a dayNot-Taking/PRNOcuflox 0.3 % Solution as directed Ophthalmic 2 drops both eyes 4 times per dayOndansetron HCl 4 MG Tablet 1 tablet Orally 3 times a day as needed a dayIbuprofen 800 MG Tablet 1 tablet with food or milk as needed Orally Three times a dayAlbuterol Sulfate 0.63 MG/3ML Nebulization Solution 3 ml as needed Inhalation every 6 hrsKlonoPIN 0.5 MG Tablet 0.5 tablet Orally PRNNot-Taking/PRN Ocuflox 0.3 % Solution as directed Ophthalmic 2 drops both eyes 4 times per dayNot-Taking/PRN Ondansetron HCl 4 MG Tablet 1 tablet Orally 3 times a day as needed a dayNot-Taking/PRN Ibuprofen 800 MG Tablet 1 tablet with food or milk as needed Orally Three times a dayNot-Taking/PRN Albuterol Sulfate 0.63 MG/3ML Nebulization Solution 3 ml as needed Inhalation every 6 hrsNot-Taking/PRN KlonoPIN 0.5 MG Tablet 0.5 tablet Orally PRNDiscontinuedpredniSONE 10 MG Tablet 1 tablet Orally Once a dayMedication List reviewed and reconciled with the patientDiscontinued predniSONE 10 MG Tablet 1 tablet Orally Once a dayMedication List reviewed and reconciled with the patient * Allergies: i hallie infusion: hivesPredniSONE: had hallucination with primidoneyes[Allergies Verified] Objective: * Vitals: H t: 60.5, Wt:133, BMI:25.54, BP:112/70 weight is down 4 pounds since 10-01-23. * Examination: G eneral Examination: GENERAL APPEARANCE: alert, well hydrated, in no distress . HEAD: normocephalic. EYES: BOTH EYES. SKIN: good turgor. HEART: no murmurs, rubs, gallops, regular rate and rhythm. LUNGS: no wheezes, rales, rhonchi, good air movement, clear to auscultation bilaterally. Assessment: * Assessment: 1. M ild intermittent asthma with acute exacerbation - J45.21 (Primary) 2 . G astroesophageal reflux disease without esophagitis - K21.9 Plan: * Treatment: 2. G astroesophageal reflux disease without esophagitis Notes: stable, will continue current regiment. * Procedure Codes: * * Sign off status: Completed true * Provider: Td Roman MD Date: 0 11/21/2023 Generated for Tano fisher/Andre/Stephanieitting on: 1 07/15/2024 12:13 PM EST History and Physical Notes * HPI (History of Present Illness) Category Sub-Category Detail Notes Category Not es Symptom(s) patient is a 63 yo male here for 6 month follow up visit Examination Category Sub-Category Detail Notes Category Not es General Examination GENERAL APPEARANCE: alert, w ell hydrated, in no distress HEAD: normocephalic EYES: BOTH EYES HEART: no murmurs, rubs, ga llops, regular rate and rhythm LUNGS: no wheezes, rales, r honchi, good air movement, clear to auscultation bilaterally SKIN: good turgor
--- OUTSIDE RECORDS SUMMARY | 2024-05-05 03:00 | XMS_ITS ---
Author Organization Jonny Roman MD Address [address] [place] [phone] Care Team Providers Care College Teacher Name Role Phone Jonny Roman Primary Care Provider Results Component Value Reference Range Notes Complete Blood Count Auto Di ff Reviewed date:05/05/2024 05:03:11 PM Interpretation: Performing Lab:[facility], [address] [place] [phone] Notes/Report: White Blood Count 4.2 4.8-10.8 X10*3/uL Red Blood Count 4.15 4.20-5.50 X10*6/uL Hemoglobin 13.2 12.0-16.0 g/dl Hematocrit 40.2 37.0-47.0 % Mean Corpuscular Volume 96.9 80.0-98.0 fL Mean Corpuscular Hemoglobin 31.8 27.0-33.0 pg Mean Corpuscular HGB Conc 32.8 31.0-35.0 g/dl Red Cell Distribution Width 12.5 11.0-16.0 % Platelet Count 280 160-400 X10*3/uL Mean Platelet Volume 9.9 9.4-12.3 fL Neutrophils Percent Auto 44.8 45-73 % Imm Gran Pct Auto 0.2 0.0-0.4 % Lymphocytes Percent Auto 42.8 20-40 % Monocytes Percent Auto 8.4 2-11 % Eosinophils Percent Auto 2.6 0-4 % Basophils Percent Auto 1.2 0-2 % NRBC Pct Auto 0.0 0.0-0.2 /100WBC Neutrophils Absolute Auto 1.9 2.0-8.3 x10*3/u L Imm Gran Abs Auto 0.01 0.00-0.03 X10*3/uL Lymphocytes Absolute Auto 1.8 1.2-4.9 X10*3/u L Monocytes Absolute Auto 0.4 0.1-1.2 X10*3/uL Eosinophils Absolute Auto 0.1 0.0-0.4 X10*3/u L Basophils Absolute Auto 0.1 0.0-0.2 X10*3/uL NRBC Abs Auto 0.000 0.0-0.012 X10*3/uL Comprehensive [place]. Panel Fa st Reviewed date:05/05/2024 05:05:13 PM Interpretation: Performing Lab:[facility], [address] [place] [phone] Notes/Report: Sodium 140 135-145 mmol/L Potassium 4.2 3.3-5.1 mmol/L Chloride 103 96-108 mmol/L Carbon Dioxide 28 22-29 mmol/L Anion Gap 13 12-20 Blood Urea Nitrogen 10 9-16 mg/dL Creatinine 0.71 0.5-1.4 mg/dL Estimated Glomerular Filt Rate > 60 Chronic Kidney Disease: Estimated GFR < 60 mL/min/1.73m2 Severe Kidney Disease: Estimated GFR < 15 mL/min/1.73m2 Glucose Fasting 97 60-99 mg/dL Calcium 8.8 8.4-10.2 mg/dL Bilirubin Total 0.3 0.0-1.0 mg/dL Aspartate Amino Transferase 23 5-31 U/L Alanine Aminotransferase 18 0-31 U/L Total Protein 6.9 6.5-8.0 g/dL Albumin Level 4.0 3.5-5.0 g/dL Alkaline Phosphatase 64 39-117 U/L IRON PROFILE Reviewed date:05/05/2024 12:56:34 PM Interpretation: Performing Lab:[facility], [address] [place] [phone] Notes/Report: Iron 87 30-160 mcg/dL Total Iron Binding Capacity 303 228-428 mcg/d L Percent Iron Saturation 29 15-50 % Unsaturated Iron Binding 216 Lipid Panel Reviewed date:05/05/2024 12:57:29 PM Interpretation: Performing Lab:[facility], [address] [place] [phone] Notes/Report: Triglycerides 86 <150 mg/dL Desirable Triglyceride: less than 150 mg/dL Borderline High Triglyceride 150-199 mg/dL High Triglyceride: 200-499 mg/dL Very High Triglyceride: greater than or equal to 5OO mg/dL Cholesterol 246 <200 mg/dL Desirable Cholesterol: less than 200 mg/dL Borderline High Cholesterol: 200-239 mg/dL High Cholesterol: greater than 239 mg/dL LDL Cholesterol Calculated 167 <100 mg/dL Desirable LDL: less than 100 mg/dL Near Optimal/Above Optimal LDL: 110-129 mg/dL Borderline High LDL: 130-159 mg/dL High LDL: 160-189 mg/dL Very High LDL: greater than or equal to 190 mg/dL HDL Cholesterol 62 >40 mg/dL Desirable HDL: greater than 40 mg/dL Note: This HDL assay may give artificially low results in patients with liver disease. UA ClnCatch+Micro w/rflx Cul t Reviewed date:05/05/2024 04:58:06 PM Interpretation: Performing Lab:[facility], [address] [place] [phone] Notes/Report: Urine, Clean Catch Color Urine Yellow Appearance Urine Clear PH 5.5 5.0-9.0 Glucose Urine UA Negative Negative mg/dL Urine Blood Moderate (2+) Negative Specific [place] - Urine 1.015 1.005-1.025 Urine Protein Negative Neg-Trace mg/dL Urine Ketones Negative Negative mg/dL Nitrite Urine Negative Negative Leukocyte Esterase Urine Trace Negative RBC Urine 6-10 0-2 /HPF WBC Urine 6-10 0-5 /HPF Squamous Epithelial Cell Urine 6-10 0-2 /HPF Bacteria Urine None Seen None Seen Hyaline Casts Urine 0-2 0-2 /LPF REASON FOR VISIT FASTING LABS Encounters Encounter Location Date Provider Diagnosis Jonny Roman MD [address] [place] [address] Drive [address] [place] [phone] 05/05/2024 Jonny Roman Blood tests for routine general physical examination Z00.00 and Other iron deficiency anemia D50.8 Assessments Encounter Date Diagnosis (ICD Code) Assessment Notes Treatment Notes Treatment Clinical Notes Section Notes 05/05/2024 Blood tests for routine general physical examination (ICD-10 - Z00.00) 05/05/2024 Other iron deficiency anemia (ICD-10 - D50.8) Plan Of Treatment Next Appt Details Provider Name:Jonny Lares ier, 05/24/2025 10:30:00 AM, [address] [place] [address], [address], [place], [place], [phone], Progress Notes * Delisa WILBURN LDOB:[birth year] (64 yo F)Acc No.[id number]:05/05/2024 Progress Note Patient: Delisa MOREIRA Provider: Td Roman MD :1960 A ge:63 Y S ex:Female Date:05/05/2024 Address:[address] [place], [place] [phone] Subjective: * Chief Complaints: * 1 . FASTING LABS. * Medical History: Objective: * Vitals: Assessment: * Assessment: 1. B lood tests for routine general physical examination - Z00.00 (Primary) 2 .?Other iron deficiency anemia - D50.8 Plan: * Treatment: 2. O ther iron deficiency anemia L AB: Complete Blood Count Auto Diff (Collection Date & Time - 05/05/2024 08:00 AM) L AB: Comprehensive [place]. Panel Fast (Collection Date & Time - 05/05/2024 08:00 AM) L AB: IRON PROFILE (Collection Date & Time - 05/05/2024 08:00 AM) L AB: Lipid Panel (Collection Date & Time - 05/05/2024 08:00 AM) L AB: UA ClnCatch+Micro w/rflx Cult (Collection Date & Time - 05/05/2024 08:00 AM) * Procedure Codes: 3 6415 VENIPUNCT, ROUTINE* * * The named appointment provid er may or may not be the originator of this progress note, and it is not deemed complete until electronically signed by the appointment provider. Sign off status: Pending * Provider: Td Roman MD Date: 1 07/06/2023 Generated for Tano fisher/Andre/Elsy on: 07/15/2024 12:14 PM EST
--- OUTSIDE RECORDS SUMMARY | 2024-05-12 05:30 | XMS_ITS ---
Author Organization Jonny Roman MD Address [address] [place] [phone] Care Team Providers Care Separating Machine Operator Name Role Phone Jonny Roman Primary Care Provider [phone] Allergies Allergen (clinical drug ingredient) Drug/Non Drug Allergy documented on EMR Reaction Allergy Type Onset Date Status PredniSONE had hallucinatio n with primidone Drug Allergy Active ferrous sulfate iron infusion (uncoded) hives Allergy Active REASON FOR VISIT ANNUAL EXAM Medications Medication SIG (Take, Route, Frequency, Duration) Notes Start Date End Date Status Albuterol Sulfate 0.63 MG/3ML 3 ml as needed Inhalation every 6 hrs for 14 days 06/16/2015 Not-Taking KlonoPIN 0.5 MG 0.5 tablet Orally PRN Active Ocuflox 0.3 % as directed Ophthalm ic 2 drops both eyes 4 times per day for 7 days 09/10/2023 Not-Taking Ondansetron HCl 4 MG 1 tablet Orally 3 t imes a day as needed a day for 7 days 10/30/2021 Not-Taking Ibuprofen 800 MG 1 tablet with food o r milk as needed Orally Three times a day for 30 Not-Taking Famotidine 20 MG 1 tablet at bedtime as needed Orally Once a day for 30 day(s) Active Breo Ellipta 200-25 MCG/ACT 1 puff Inhalation Once a day 07/05/2023 Active Albuterol Sulfate HFA 108 (90 Base) MCG/ACT TAKE 2 PUFFS BY MOUTH EVERY 4 HOURS NEEDED for 17 Active Gabapentin 300 MG 2 capsule Orally HS Active rOPINIRole HCl 1 MG 1 tablet 1 to 3 hour s before bedtime, also taking 2mg at betime Orally TID Active Social History Tobacco Use: Social History Observation Description Date Details (start date - stop date) Current Smoker NA - NA Tobacco Use/Smoking Question Answer Notes Patient is a current smoker How often do you smoke cigarettes? every day How soon after you wake up d o you smoke your first cigarette? 6-30 minutes Are you interested in quitting? Not ready to balwinder t Additional Findings: Tobacco User Kavin t cigarette smoker, not currently using another form of tobacco Alcohol Screen Question Answer Notes Did you have a drink contain ing alcohol in the past year? Yes How often did you have a dri nk containing alcohol in the past year? 4 or more times a week (4 points) How many drinks did you have on a typical day when you were drinking in the past year? 1 or 2 drinks (0 point) How often did you have 6 or more drinks on one occasion in the past year? 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 Vital Signs Blood pressure systolic 112 mm Hg 05/12/20 24 Blood pressure diastolic 70 mm Hg 024 Height 60.5 in 05/12/2024 Weight 141 lbs 05/12/2024 BMI 27.08 kg/m2 05/12/2024 weight is up 8 pounds since 11-21-23 Encounters Encounter Location Date Provider Diagnosis Jonny Roman MD [address] [place], [place] [phone] 05/12/2024 Jonny Roman Ophthalmic migraine G43.109 ; Annual physical exam Z00.00 ; Gastroesophageal reflux disease without esophagitis K21.9 ; History of hematuria Z87.448 ; Smoker F17.200 ; Anxiety disorder, unspecified type F41.9 and Depression screening Z13.31 Assessments Encounter Date Diagnosis (ICD Code) Assessment Notes Treatment Notes Treatment Clinical Notes Section Notes 05/12/2024 Ophthalmic migraine (ICD-10 - G43.109) not occuring frequently. has been evaluated by ophthalmology 05/12/2024 Annual physical exam (ICD-10 - Z00.00) labs reviewed and discussed with patient 05/12/2024 Gastroesophageal reflux disease without esophagitis (ICD-10 - K21.9) had surgery, will contiue current regiment 05/12/2024 History of hematuria (ICD-10 - Z87.448) has been evaluated, will continue to monitor 05/12/2024 Smoker (ICD-10 - F17.200) not willing to quit 05/12/2024 Anxiety disorder, unspecified type (ICD-10 - F41.9) stable, will continue current regiment 05/12/2024 Depression screening (ICD-10 - Z13.31) negative screen Plan Of Treatment Treatment Notes Assessment Notes Ophthalmic migraine not occuring frequen tly. has been evaluated by ophthalmology Annual physical exam labs reviewed and d iscussed with patient Gastroesophageal reflux dise ase without esophagitis had surgery, will contiue current regiment History of hematuria has been evaluated, will continue to monitor Smoker not willing to quit Anxiety disorder, unspecified type stabl e, will continue current regiment Depression screening negative screen Next Appt Details Follow Up: 1 Year, Reason: Provider Name:Jonny licea, 05/24/2025 10:30:00 AM, [address], [address], [place], [place], [id number], Progress Notes * Delisa WILBURN LDOB:[birth year] (63 yo F)Acc No.[id number]:05/12/2024 Progress Notes Patient: Delisa Mandujano Provider: Td Roman MD :1960 A ge:63 Y S ex:Female Date:05/12/2024 Address:[address] [place] [address] [place], [id number] [id number] Subjective: * Chief Complaints: * A NNUAL EXAM * HPI: D epression Screening: PHQ-9 L ittle interest or pleasure in doing things N ot at all, F eeling down, depressed, or hopeless N ot at all, T rouble falling or staying asleep, or sleeping too much N ot at all, F eeling tired or having little energy N ot at all, P oor appetite or overeating N ot at all, F eeling bad about yourself or that you are a failure, or have let yourself or your family down N ot at all, T rouble concentrating on things, such as reading the newspaper or watching television N ot at all, M oving or speaking so slowly that other people could have noticed; or the opposite, being so fidgety or restless that you have been moving around a lot more than usual N ot at all, T houghts that you would be better off or of hurting yourself in some way N ot at all, T otal Score 0 . I nterpretation and Intervention D epression Screening Findings N egative, F ollow-Up for Depression : review of PHQ-9 found negative result, no follow-up needed. C ommunication Needs: Communication Needs D oes the patient have a hearing impairment N o, D oes the patient have a vision impairment? Y es, I f yes, what is the vision impairment? G lasses, D oes the patient have a cognition impairment? N o. S EMILI Questions: SDOH Questions I n the past year have you been worried about losing housing? N o, I n the past year have you or any family members you live with been unable to get any of the following when it was really needed? Check all that apply: N one. S ymptom(s): patient is a 63 yo female here for annual visit with review of recent labs and follow up of chronic issues, started vaping and stopped smoking. no longer coughing. * ROS: G eneral/Constitutional: Patient denies f atigue , headache. C hange in appetite?denies. C hills d enies. F ever d enies. O phthalmologic: Blurred vision d enies. D ischarge d enies. P ain d enies. E NT: Patient denies d ecreased sense of smell , any loss of taste , sore throat. D ecreased hearing d enies. S ore throat d enies. S wollen glands d enies. E ndocrine: Cold intolerance d enies. E xcessive thirst d enies. H eat intolerance d enies. W eight loss d enies. R espiratory: Cough d enies. S hortness of breath at rest d enies. S hortness of breath with exertion d enies. W heezing d enies. C ardiovascular: Chest pain at rest d enies. C hest pain with exertion?denies. I rregular heartbeat d enies. S hortness of breath d enies. ? G astrointestinal: Abdominal pain d enies. C hange in bowel habits d enies. D iarrhea d enies. N ausea d enies. R ectal bleeding d enies. V omiting d enies . G enitourinary: Blood in urine d enies. D ifficulty urinating d enies. F requent urination d enies. U rinary incontinence D enies. M usculoskeletal: Patient denies m uscle aches. P ainful joints d enies. W eakness d enies. P eripheral Vascular: Patient denies r ed and blue toes. S kin: Dry skin d enies. I tching d enies. D enies?Mole(s), changes in moles, new moles or any lesions of concern. D enies P hotosensitivity. R ana d enies. N eurologic: Dizziness d enies. F ainting d enies. H eadache?denies. * Medical History: * Surgical History: * Hospitalization/Major Diagno stic Procedure: * Family History: F ather: alive 89 yrs, diagnosed with Hypertension. M other: alive 78 yrs, diagnosed with Diabetes, Cancer. 1 brother(s) , 1 sister(s) . 1 son(s) . . Denies mental health/substance abuse family history, No pertinent family medical history, Denies mental health/substance abuse family history. * Social History: T obacco Use: T obacco Use/Smoking P atient is a c urrent smoker, H ow often do you smoke cigarettes? e very day, H ow soon after you wake up do you smoke your first cigarette? 6 -30 minutes, A re you interested in quitting? N ot ready to quit, A dditional Findings: Tobacco User C urrent cigarette smoker, not currently using another form of tobacco. D rugs/Alcohol: A lcohol Screen D id you have a drink containing alcohol in the past year? Y es, H ow often did you have a drink containing alcohol in the past year? 4 or more times a week (4 points), H ow many drinks did you have on a typical day when you were drinking in the past year? 1 or 2 drinks (0 point), H ow often did you have 6 or more drinks on one occasion in the past year? N ever (0 point), P oints 4 , I nterpretation P ositive. M iscellaneous: C affeine: yes, frequency:, 1-2 cups per day. Children: yes. Community involvements: yes. no Exercise. Home smoke detector use: yes. Housing: owning. Living with: spouse. Marital status: single. Pets: none. no Travel outside of the [place]. P atient is vaping Vapor lasts 1 month. * Medications: T akingFamotidine 20 MG Tablet 1 tablet at bedtime as needed Orally Once a dayGabapentin 300 MG Capsule 2 capsule Orally HSrOPINIRole HCl 1 MG Tablet 1 tablet 1 to 3 hours before bedtime, also taking 2mg at betime Orally TIDBreo Ellipta 200- 25 MCG/ACT Aerosol Powder Breath Activated 1 puff Inhalation Once a dayAlbuterol Sulfate HFA 108 (90 Base) MCG/ACT Aerosol Solution TAKE 2 PUFFS BY MOUTH EVERY 4 HOURS NEEDED KlonoPIN 0.5 MG Tablet 0.5 tablet Orally PRNTaking Famotidine 20 MG Tablet 1 tablet at bedtime as needed Orally Once a dayTaking Gabapentin 300 MG Capsule 2 capsule Orally HSTaking rOPINIRole HCl 1 MG Tablet 1 tablet 1 to 3 hours before bedtime, also taking 2mg at betime Orally TIDTaking Breo Ellipta 200-25 MCG/ACT Aerosol Powder Breath Activated 1 puff Inhalation Once a dayTaking Albuterol Sulfate HFA 108 (90 Base) MCG/ACT Aerosol Solution TAKE 2 PUFFS BY MOUTH EVERY 4 HOURS NEEDED Taking KlonoPIN 0.5 MG Tablet 0.5 tablet Orally PRNNot-Taking/PRNOcuflox 0.3 % Solution as directed Ophthalmic 2 drops both eyes 4 times per dayOndansetron HCl 4 MG Tablet 1 tablet Orally 3 times a day as needed a dayIbuprofen 800 MG Tablet 1 tablet with food or milk as needed Orally Three times a dayAlbuterol Sulfate 0.63 MG/3ML Nebulization Solution 3 ml as needed Inhalation every 6 hrsMedication List reviewed and reconciled with the patientNot-Taking/PRN Ocuflox 0.3 % Solution as directed Ophthalmic 2 drops both eyes 4 times per dayNot-Taking/PRN Ondansetron HCl 4 MG Tablet 1 tablet Orally 3 times a day as needed a dayNot-Taking/PRN Ibuprofen 800 MG Tablet 1 tablet with food or milk as needed Orally Three times a dayNot- Taking/PRN Albuterol Sulfate 0.63 MG/3ML Nebulization Solution 3 ml as needed Inhalation every 6 hrsMedication List reviewed and reconciled with the patient * Allergies: i hallie infusion: hivesPredniSONE: had hallucination with primidoneyes[Allergies Verified] Objective: * Vitals: H t: 60.5, Wt:141, BMI:27.08, BP:112/70 weight is up 8 pounds since 11-21-23. * P ast Orders: L ab:UA ClnCatch+Micro w/rflx Cult (Order Date - 05/05/2024) (Collection Date - 05/05/2024) Value Reference Range Color Urine Yellow - Appearance Urine Clear - PH 5.5 5.0-9.0 - Glucose Urine UA Negative Negative - mg/dL Urine Blood Moderate (2+) A Negative - Specific [place] - Urine 1.015 1.005-1.025 - Urine Protein Negative Neg-Trace - mg/dL Urine Ketones Negative Negative - mg/dL Nitrite Urine Negative Negative - Leukocyte Esterase Urine Trace A Negative - RBC Urine 6-10 A 0-2 - /HPF WBC Urine 6-10 A 0-5 - /HPF Squamous Epithelial Cell Urine 6-10 0-2 - /HP F Bacteria Urine None Seen None Seen - Hyaline Casts Urine 0-2 0-2 - /LPF L ab:Complete Blood Count Auto Diff (Order Date - 05/05/2024) (Collection Date - 05/05/2024) Value Reference Range White Blood Count 4.2 L 4.8-10.8 - X10*3/uL Red Blood Count 4.15 L 4.20-5.50 - X10*6/uL Hemoglobin 13.2 12.0-16.0 - g/dl Hematocrit 40.2 37.0-47.0 - % Mean Corpuscular Volume 96.9 80.0-98.0 - fL Mean Corpuscular Hemoglobin 31.8 27.0-33.0 - pg Mean Corpuscular HGB Conc 32.8 31.0-35.0 - g/ dl Red Cell Distribution Width 12.5 11.0-16.0 - % Platelet Count 280 160-400 - X10*3/uL Mean Platelet Volume 9.9 9.4-12.3 - fL Neutrophils Percent Auto 44.8 L 45-73 - % Imm Gran Pct Auto 0.2 0.0-0.4 - % Lymphocytes Percent Auto 42.8 H 20-40 - % Monocytes Percent Auto 8.4 2-11 - % Eosinophils Percent Auto 2.6 0-4 - % Basophils Percent Auto 1.2 0-2 - % NRBC Pct Auto 0.0 0.0-0.2 - /100WBC Neutrophils Absolute Auto 1.9 L 2.0-8.3 - x10* 3/uL Imm Gran Abs Auto 0.01 0.00-0.03 - X10*3/uL Lymphocytes Absolute Auto 1.8 1.2-4.9 - X10* 3/uL Monocytes Absolute Auto 0.4 0.1-1.2 - X10*3/ uL Eosinophils Absolute Auto 0.1 0.0-0.4 - X10* 3/uL Basophils Absolute Auto 0.1 0.0-0.2 - X10*3/ uL NRBC Abs Auto 0.000 0.0-0.012 - X10*3/uL L ab:Comprehensive [place]. Panel Fast (Order Date - 05/05/2024) (Collection Date - 05/05/2024) Value Reference Range Sodium 140 135-145 - mmol/L Bilirubin Total 0.3 0.0-1.0 - mg/dL Aspartate Amino Transferase 23 5-31 - U/L Alanine Aminotransferase 18 0-31 - U/L Total Protein 6.9 6.5-8.0 - g/dL Albumin Level 4.0 3.5-5.0 - g/dL Alkaline Phosphatase 64 39-117 - U/L Potassium 4.2 3.3-5.1 - mmol/L Chloride 103 96-108 - mmol/L Carbon Dioxide 28 22-29 - mmol/L Anion Gap 13 12-20 - Blood Urea Nitrogen 10 9-16 - mg/dL Creatinine 0.71 0.5-1.4 - mg/dL Estimated Glomerular Filt Rate > 60 - Glucose Fasting 97 60-99 - mg/dL Calcium 8.8 8.4-10.2 - mg/dL L ab:IRON PROFILE (Order Date - 05/05/2024) (Collection Date - 05/05/2024) Value Reference Range Iron 87 30-160 - mcg/dL Total Iron Binding Capacity 303 228-428 - mc g/dL Percent Iron Saturation 29 15-50 - % Unsaturated Iron Binding 216 - ug/dL L ab:Lipid Panel (Order Date - 05/05/2024) (Collection Date - 05/05/2024) Value Reference Range Triglycerides 86 <150 - mg/dL Cholesterol 246 H <200 - mg/dL LDL Cholesterol Calculated 167 H <100 - mg/dL HDL Cholesterol 62 >40 - mg/dL * Examination: G eneral Examination: GENERAL APPEARANCE: w ell developed, well nourished, in no acute distress. HEAD: n ormocephalic, atraumatic. EYES: p upils equal, round, reactive to light and accommodation, sclera non-icteric. EARS: n ormal. ORAL CAVITY: m ucosa moist. THROAT: c lear. NECK/THYROID: n bean supple, full range of motion, no cervical lymphadenopathy, no bruits. SKIN: w arm and dry, no suspicious lesions. HEART: r egular rate and rhythm, S1, S2 normal, no murmurs.? LUNGS: c lear to auscultation bilaterally. BREASTS: d one by freight unloader. ABDOMEN: s oft, nontender, nondistended, bowel sounds present, normal, no organomegaly , no masses palpable. RECTAL EXAM: d one by freight unloader. FEMALE GENITOURINARY: d one by freight unloader. EXTREMITIES: n o clubbing, cyanosis, or edema. NEUROLOGIC: n onfocal, motor strength normal upper and lower extremities, sensory exam intact. Assessment: * Assessment: 1. A nnual physical exam - Z00.00 (Primary) 2 . O phthalmic migraine - G43.109 3 .?Gastroesophageal reflux disease without esophagitis - K21.9 4 . H istory of hematuria - Z87.448 5 . S moker - F17.200 6 . A nxiety disorder, unspecified type - F41.9 7 . D epression screening - Z13.31 Plan: * Treatment: 2. O phthalmic migraine Notes: not occuring frequently. has been evaluated by ophthalmology 3. G astroesophageal reflux disease without esophagitis Notes: had surgery, will contiue current regiment 4. H istory of hematuria Notes: has been evaluated, will continue to monitor 5. Chuy olivares Notes: not willing to quit 6. A nxiety disorder, unspecified type Notes: stable, will continue current regiment 7. D epression screening Notes: negative screen * Procedure Codes: * Preventive Medicine: Counseling: S uriah ray counseled on the dangers of tobacco use and urged to quit. 1 07/13/2023, P atient Lifestyle Goals P atient does not want to quit, T reatment Goals S uggested patient, Cut down by 1 cigarette a week, E xpected Outcome a chieving sustained abstinence from cigarettes, significantly reducing the risk of smoking-related diseases like lung cancer, heart disease, and stroke, experiencing improved lung function, better overall health, and potentially noticing positive changes in taste and smell within a relatively short time frame after quitting, S elf-Managment Goals S uggested patient speak with family/friends about quitting and how they can help, B arriers p atient is not willing to quit, S et a Quit Date s uggested patient set a date in the future to stop smoking. * Follow Up: 1 Year * * Sign off status: Completed true * Provider: Td Roman MD Date: 1 07/13/2023 Generated for Tano fisher/Andre/Elsy on: 07/15/2024 12:13 PM EST History and Physical Notes * HPI (History of Present Illness) Category Sub-Category Detail Notes Category Not es Symptom(s) patient is a 63 yo female here for annual visit with review of recent labs and follow up of chronic issues, started vaping and stopped smoking. no longer coughing. Depression Screening PHQ-9 Little inte rest or pleasure in doing things: Not at all Feeling down, depressed, or hopeless: No t at all Trouble falling or staying asleep, or sl eeping too much: Not at all Feeling tired or having little energy: N ot at all Poor appetite or overeating: Not at all Feeling bad about yourself o r that you are a failure, or have let yourself or your family down: Not at all Trouble concentrating on thi ngs, such as reading the newspaper or watching television: Not at all Moving or speaking so slowly that other people could have noticed; or the opposite, being so fidgety or restless that you have been moving around a lot more than usual: Not at all Thoughts that you would be b lucien off or of hurting yourself in some way: Not at all Total Score: 0 Interpretation and Intervention Depression Hamzah palafox Findings: Negative Follow-Up for Depression: : review of PH Q-9 found negative result, no follow-up needed SDOH Questions SDOH Questions In the past year have you been worried about losing housing?: No In the past year have you or any family members you live with been unable to get any of the following when it was really needed? Check all that apply:: None Communication Needs Communication Needs Does the patient have a hearing impairment: No Does the patient have a vision impairmen t?: Yes If yes, what is the vision impairment?: Glasses Does the patient have a cognition impair ment?: No Examination Category Sub-Category Detail Notes Category Not es General Examination GENERAL APPEARANCE: well dev eloped, well nourished, in no acute distress HEAD: normocephalic, atrau matic EYES: pupils equal, round, reactive to light and accommodation, sclera non-icteric EARS: normal THROAT: clear NECK/THYROID: neck supple, full ra nge of motion, no cervical lymphadenopathy, no bruits HEART: regular rate and rhy thm, S1, S2 normal, no murmurs LUNGS: clear to auscultatio n bilaterally ABDOMEN: soft, nontender, non distended, bowel sounds present, normal, no organomegaly , no masses palpable NEUROLOGIC: nonfocal, motor stre ngth normal upper and lower extremities, sensory exam intact SKIN: warm and dry, no nikhil picious lesions EXTREMITIES: no clubbing, cyanosi s, or edema BREASTS: done by freight unloader RECTAL EXAM: done by freight unloader FEMALE GENITOURINARY: done by freight unloader ORAL CAVITY: mucosa moist
--- OUTSIDE RECORDS SUMMARY | 2025-02-11 08:45 | XMS_ITS ---
Author Organization Jonny Roman MD Address [address] [place] [phone] Care Team Providers Care Airplane Pilot Chief Name Role Phone Jonny Roman Primary Care Provider [phone] Results Component Value Reference Range Notes UA ClnCatch+Micro w/rflx Cul t Reviewed date:02/11/2025 04:50:26 PM Interpretation: Performing Lab:[facility], [address] [place] [phone] Notes/Report: Urine, Clean Catch Color Urine Yellow Appearance Urine Turbid PH 6.5 5.0-9.0 Glucose Urine UA Negative Negative mg/dL Urine Blood Moderate (2+) Negative Specific [place] - Urine 1.020 1.005-1.025 Urine Protein 100 (2+) Neg-Trace mg/dL Urine Ketones 15 Negative mg/dL Nitrite Urine Negative Negative Leukocyte Esterase Urine Large (3+) Negative RBC Urine >20 0-2 /HPF WBC Urine >50 0-5 /HPF Squamous Epithelial Cell Urine 6-10 0-2 /HPF Bacteria Urine 2+ None Seen Hyaline Casts Urine 3-5 0-2 /LPF REASON FOR VISIT ua Encounters Encounter Location Date Provider Diagnosis Jonny Roman MD [address] [facility] [address] [place] [phone] 02/11/2025 Jonny Roman UTI (urinary tract infection) N39.0 Assessments Encounter Date Diagnosis (ICD Code) Assessment Notes Treatment Notes Treatment Clinical Notes Section Notes 02/11/2025 UTI (urinary tract infection) (ICD-10 - N39.0) Plan Of Treatment Next Appt Details Provider Name:Jonny Lares ier, 05/24/2025 10:30:00 AM, [address] [place] [address], [address] [facility], [place], [place], [phone], Progress Notes * AKILA Delisa LDOB:[birth year] (64 yo F)Acc No.[id number]:02/11/2025 Progress Note Patient: Delisa MOREIRA Provider: Td Roman MD :1960 A ge:64 Y S ex:Female Date:02/11/2025 Address:[address] [place], [place] [phone] Subjective: * Chief Complaints: * 1 . Ua. * Medical History: Objective: * Vitals: Assessment: * Assessment: 1. U TI (urinary tract infection) - N39.0 (Primary) Plan: * Treatment: * * The named appointment provid er may or may not be the originator of this progress note, and it is not deemed complete until electronically signed by the appointment provider. Sign off status: Pending * Provider: Td Roman MD Date: 0 02/11/2025 Generated for Tano fisher/Andre/Maryannsmitting on: 1 07/15/2024 12:13 PM EST
--- OUTSIDE RECORDS SUMMARY | 2025-02-15 04:59 | XMS_ITS ---
Author Organization Jonny Roman MD Address [address] [place] [phone] Care Team Providers Care Heading And Priming Operator Name Role Phone Jonny Roman Primary Care Provider Medications Medication SIG (Take, Route, Fr equency, Duration) Notes Start Date End Date Status Cephalexin 500 MG 1 capsule Orally twi ce a day for 5 days 02/15/2025 Active Encounters Encounter Location Date Provider Diagnosis Jonny Roman MD [address] [place] [phone] 02/15/2025 Jonny Roman Plan Of Treatment Medication Medication Name Sig Start Date Stop Date Notes Cephalexin 500 MG 1 capsule Orally twice a day for 5 days 02/15/2025 Next Appt Details Provider Name:Jonny Lares ier, 05/24/2025 10:30:00 AM, [address], [address], [place], [place], [phone], Progress Notes * Delisa WILBURN LDOB:[birth year] (64 yo F)Acc No.[id number]:02/15/2025 Patient: Alaina MARCELINABETZY Delisa Pérez :1960 A ge:64 Y S ex:Female Address:[address] [place] [address], [place] [address] * Refills Start Cephalexin Capsule, 500 MG, Orally, 10 Capsule, 1 capsule, twice a day, 5 days * true * Date: Generated for Tano fisher/Andre/Maryannsmitting on: 07/15/2024 12:14 PM EST
--- OUTSIDE RECORDS SUMMARY | 2025-05-14 02:00 | XMS_ITS ---
Author Organization Jonny Roman MD Address [address] [place] [phone] Care Team Providers Care Foundry Molder Name Role Phone Jonny Roman Primary Care Provider Results Component Value Reference Range Notes UA ClnCatch+Micro w/rflx Cul t (Not yet reviewed by provider) Interpretation: Performing Lab:[facility], [address] [place] [phone] Notes/Report: Urine, Clean Catch Color Urine Yellow Appearance Urine Cloudy PH 5.0 5.0-9.0 Glucose Urine UA Negative Negative mg/dL Urine Blood Moderate (2+) Negative Specific [place] - Urine 1.025 1.005-1.025 Urine Protein Trace Neg-Trace mg/dL Urine Ketones Trace Negative mg/dL Nitrite Urine Negative Negative Leukocyte Esterase Urine Trace Negative RBC Urine 11-20 0-2 /HPF WBC Urine 0-5 0-5 /HPF Squamous Epithelial Cell Urine 11-20 0-2 /HPF Bacteria Urine 1+ None Seen Hyaline Casts Urine 0-2 0-2 /LPF Complete Blood Count Auto Di ff Reviewed date:05/14/2025 12:05:40 PM Interpretation: Performing Lab:[facility], [address] [place] [phone] Notes/Report: White Blood Count 4.5 4.8-10.8 X10*3/uL Red Blood Count 4.19 4.20-5.50 X10*6/uL Hemoglobin 12.9 12.0-16.0 g/dl Hematocrit 39.3 37.0-47.0 % Mean Corpuscular Volume 93.8 80.0-98.0 fL Mean Corpuscular Hemoglobin 30.8 27.0-33.0 pg Mean Corpuscular HGB Conc 32.8 31.0-35.0 g/dl Red Cell Distribution Width 13.2 11.0-16.0 % Platelet Count 283 160-400 X10*3/uL Mean Platelet Volume 10.0 9.4-12.3 fL Neutrophils Percent Auto 55.6 45-73 % Imm Gran Pct Auto 0.2 0.0-0.4 % Lymphocytes Percent Auto 29.2 20-40 % Monocytes Percent Auto 10.6 2-11 % Eosinophils Percent Auto 2.4 0-4 % Basophils Percent Auto 2.0 0-2 % NRBC Pct Auto 0.0 0.0-0.2 /100WBC Neutrophils Absolute Auto 2.5 2.0-8.3 x10*3/u L Imm Gran Abs Auto 0.01 0.00-0.03 X10*3/uL Lymphocytes Absolute Auto 1.3 1.2-4.9 X10*3/u L Monocytes Absolute Auto 0.5 0.1-1.2 X10*3/uL Eosinophils Absolute Auto 0.1 0.0-0.4 X10*3/u L Basophils Absolute Auto 0.1 0.0-0.2 X10*3/uL NRBC Abs Auto 0.000 0.0-0.012 X10*3/uL IRON PROFILE Reviewed date:05/14/2025 11:29:37 AM Interpretation: Performing Lab:[facility], [address] [place] [phone] Notes/Report: Iron 66 30-160 mcg/dL Total Iron Binding Capacity 258 228-428 mcg/d L Percent Iron Saturation 26 15-50 % Unsaturated Iron Binding 192 Lipid Panel Reviewed date:05/14/2025 11:29:26 AM Interpretation: Performing Lab:[facility], [address] [place] [phone] Notes/Report: Triglycerides 54 <150 mg/dL Desirable Triglyceride: less than 150 mg/dL Borderline High Triglyceride 150-199 mg/dL High Triglyceride: 200-499 mg/dL Very High Triglyceride: greater than or equal to 5OO mg/dL Cholesterol 200 <200 mg/dL Desirable Cholesterol: less than 200 mg/dL Borderline High Cholesterol: 200-239 mg/dL High Cholesterol: greater than 239 mg/dL LDL Cholesterol Calculated 118 <100 mg/dL Desirable LDL: less than 100 mg/dL Near Optimal/Above Optimal LDL: 110-129 mg/dL Borderline High LDL: 130-159 mg/dL High LDL: 160-189 mg/dL Very High LDL: greater than or equal to 190 mg/dL HDL Cholesterol 72 >40 mg/dL Desirable HDL: greater than 40 mg/dL Note: This HDL assay may give artificially low results in patients with liver disease. REASON FOR VISIT yearly faxing labs Encounters Encounter Location Date Provider Diagnosis Jonny Roman MD [address] [place], [place] [id number] 05/14/2025 Jonny Roman Blood tests for routine general physical examination Z00.00 and Other iron deficiency anemia D50.8 Assessments Encounter Date Diagnosis (ICD Code) Assessment Notes Treatment Notes Treatment Clinical Notes Section Notes 05/14/2025 Blood tests for routine general physical examination (ICD-10 - Z00.00) 05/14/2025 Other iron deficiency anemia (ICD-10 - D50.8) Plan Of Treatment Pending Test Test Name Order Date Comprehensive [place]. Panel Fast UA ClnCatch+Micro w/rflx Cult 05/14/2025 Next Appt Details Provider Name:Jonny Lares ier, 05/24/2025 10:30:00 AM, [address], [address], [place], [place], [phone], Progress Notes * Delisa WILBURN LDOB:[birth year] (64 yo F)Acc No.[id number]:05/14/2025 Progress Note Patient: Delisa MOREIRA Provider: Td Roman MD :1960 A ge:64 Y S ex:Female Date:05/14/2025 Address:[address] [place] [address], [facility] Subjective: * Chief Complaints: * 1 . Yearly faxing labs. * Medical History: Objective: * Vitals: Assessment: * Assessment: 1. B lood tests for routine general physical examination - Z00.00 (Primary) 2 .?Other iron deficiency anemia - D50.8 Plan: * Treatment: 2. O ther iron deficiency anemia L AB: Comprehensive [place]. Panel Fast L AB: UA ClnCatch+Micro w/rflx Cult (Collection Date & Time - 05/14/2025 07:00 AM) L AB: Complete Blood Count Auto Diff (Collection Date & Time - 05/14/2025 07:00 AM) L AB: IRON PROFILE (Collection Date & Time - 05/14/2025 07:00 AM) L AB: Lipid Panel (Collection Date & Time - 05/14/2025 07:00 AM) * Procedure Codes: 3 6415 VENIPUNCT, ROUTINE* * * The named appointment provid er may or may not be the originator of this progress note, and it is not deemed complete until electronically signed by the appointment provider. Sign off status: Pending * Provider: Td Roman MD Date: 07/15/2024 Generated for Fridai ng/Jazlyng/eTransmitting on: 07/15/2024 12:14 PM EST
[2025-05-14 10:37] LABS: MANUAL DIFF FLAG NO
[2025-05-14 10:45] LABS: Appearance Urine Cloudy; Glucose Urine UA Negative (Negative); PH 5.0 (5.0-9.0); Specific Gravity - Urine 1.025 (1.005-1.025); UMIC TRIGGER UACC YES
[2025-05-14 10:46] LABS: Hematocrit 39.3 % (37.0-47.0); Hemoglobin 12.9 g/dl (12.0-16.0); Imm Gran Abs Auto 0.01 X10*3/uL (0.00-0.03); Imm Gran Pct Auto 0.2 % (0.0-0.4); Lymphocytes Absolute Auto 1.3 X10*3/uL (1.2-4.9); Mean Corpuscular HGB Conc 32.8 g/dl (31.0-35.0); Mean Corpuscular Hemoglobin 30.8 pg (27.0-33.0); Mean Corpuscular Volume 93.8 fL (80.0-98.0); NRBC Abs Auto 0.000 X10*3/uL (0.0-0.012); NRBC Pct Auto 0.0 /100WBC (0.0-0.2); Platelet Count 283 X10*3/uL (160-400); Red Blood Count 4.19 X10*6/uL (4.20-5.50); White Blood Count 4.5 X10*3/uL (4.8-10.8)
[2025-05-14 11:04] LABS: Alanine Aminotransferase 16 U/L (0-31); Albumin Level 4.3 g/dL (3.5-5.0); Alkaline Phosphatase 65 U/L (39-117); Anion Gap 12 (12-20); Aspartate Amino Transferase 21 U/L (5-31); Blood Urea Nitrogen 12 mg/dL (9-16); Calcium 9.2 mg/dL (8.4-10.2); Carbon Dioxide 25 mmol/L (22-29); Chloride 109 mmol/L (96-108); Cholesterol 200 mg/dL (<200); Estimated Glomerular Filt Rate > 60; HDL Cholesterol 72 mg/dL (>40); Iron 66 mcg/dL (30-160); Percent Iron Saturation 26 % (15-50); Potassium 3.8 mmol/L (3.3-5.1); Sodium 142 mmol/L (135-145); Total Iron Binding Capacity 258 mcg/dL (228-428); Total Protein 6.7 g/dL (6.5-8.0); Triglycerides 54 mg/dL (<150); Unsaturated Iron Binding 192 ug/dL
--- OUTSIDE RECORDS SUMMARY | 2025-05-14 12:13 | XMS_ITS | Patient Health Record ---
Author Organization [facility] Address [address] [place] [phone] Care Team Providers Care Runner Out Name Role Phone Jonny Roman MD Primary Care Provider Juan David Kramer Jr Unavailable [phone] Hermelindo Call Unavailable Unavailable Allergies Allergen (clinical drug ingredient) Drug/Non Drug Allergy documented on EMR Reaction Allergy Type Onset Date Status primidone primidone (uncoded) Unknown Allergy Active PredniSONE Unknown Drug Allergy Active Reason For Referral No Information Medications Medication SIG (Take, Route, Frequency, Duration) Notes Start Date End Date Status Singulair Active Gabapentin 300 MG Capsule 2 capsule befo re bedtime Orally Once a day Active VESIcare Active Primidone 50 MG Tablet Orally bid Active Lorazepam 1/2 in am 1/2 in pm Active rOPINIRole HCl 1 MG Tablet 1 mg three ti mes a jelly day 2 mg at hs Orally Active Advair HFA Active Paxil 40 MG Tablet 5 ml in the morning Orally Once a day Active Jinteli 10 mg Once a day Activ e ProAir HFA Active Social History Social History Additional Details Category Social Info Options Details Miscellaneous: Marital status: 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[employer] Problems Problem Type SNOMED Code ICD Code Onset Dates Problem Status W/U Status Risk Notes Problem Gastro-esophageal reflux disease without esophagitis (245654809) Gastro-esophageal reflux disease without esophagitis (K21.9) Active confirmed Problem Gastroesophageal reflux disease without esophagitis (643546608) Gastroesophageal reflux disease without esophagitis (K21.9) Active confirmed Problem Hiatal hernia (10206696) Hiatal hernia (K44.9) Active confirmed Problem Iron deficiency anemia (99261391) Iron deficiency anemia, unspecified iron deficiency anemia type (D50.9) Active confirmed Problem GI bleeding (83322177) GI bleeding (K92.2) Active confirmed Problem Right upper quadrant pain (194464378) RUQ pain (R10.11) Active confirmed Plan Of Treatment Pending Test Test Name Order Date UPPER GI ENDOSCOPY, BIOPSY 02/09/2011 COLONOSCOPY WITH BIOPSY 02/09/2011 Future Test Test Name Order Date UPPER GI ENDOSCOPY 09/30/2013 UPPER GI ENDOSCOPY 09/22/2015 Insurance Providers Payer Name Payer Address Payer Phone Subscriber Number Group Number Insured Name Patient Relationship to Insured Coverage Start Date Coverage End Date [facility] [address] [address] [place], [place] [id number] MILLIE WILBURN Self - patient is the insured MEDICAID OF [facility] [address] [place] [address] [id number] MILLIE WILBURN Self - patient is the insured Medical (General) History Medical History History ICD Code hematuria status post cystoscopy restless leg syndrome IUD placement GERD hiatal hernia asthma IBS Denies CO,DM,CVA,Lung disease,renal dise ase benign central tremorsr urinary incontinence Surgical History Surgery Date(Month/Year) carpal tunnel release wisdom teeth extraction hernia repair(para) 10/25/2017
--- OUTSIDE RECORDS SUMMARY | 2025-05-14 12:14 | XMS_ITS | Patient Health Record ---
Author Organization Jonny Roman MD Address [address] [place], [place] [id number] Care Team Providers Care Sanding Supervisor Name Role Phone Jonny Roman Primary Care Provider Allergies Allergen (clinical drug ingredient) Drug/Non Drug Allergy documented on EMR Reaction Allergy Type Onset Date Status PredniSONE had hallucinatio n with primidone Drug Allergy Active ferrous sulfate iron infusion (uncoded) hives Allergy Active Results Component Value Reference Range Notes UA ClnCatch+Micro w/rflx Cul t Reviewed date:02/11/2025 04:50:26 PM Interpretation: Performing Lab:[facility], [address] [place] [phone] Notes/Report: Urine, Clean Catch Color Urine Yellow Appearance Urine Turbid PH 6.5 5.0-9.0 Glucose Urine UA Negative Negative mg/dL Urine Blood Moderate (2+) Negative Specific [place] - Urine 1.020 1.005-1.025 Urine Protein 100 (2+) Neg-Trace mg/dL Urine Ketones 15 Negative mg/dL Nitrite Urine Negative Negative Leukocyte Esterase Urine Large (3+) Negative RBC Urine >20 0-2 /HPF WBC Urine >50 0-5 /HPF Squamous Epithelial Cell Urine 6-10 0-2 /HPF Bacteria Urine 2+ None Seen Hyaline Casts Urine 3-5 0-2 /LPF UA ClnCatch+Micro w/rflx Cul t (Not yet reviewed by provider) Interpretation: Performing Lab:[address] [phone] Notes/Report: Urine, Clean Catch Color Urine Yellow Appearance Urine Cloudy PH 5.0 5.0-9.0 Glucose Urine UA Negative Negative mg/dL Urine Blood Moderate (2+) Negative Specific [place] - Urine 1.025 1.005-1.025 Urine Protein Trace Neg-Trace mg/dL Urine Ketones Trace Negative mg/dL Nitrite Urine Negative Negative Leukocyte Esterase Urine Trace Negative RBC Urine 11-20 0-2 /HPF WBC Urine 0-5 0-5 /HPF Squamous Epithelial Cell Urine 11-20 0-2 /HPF Bacteria Urine 1+ None Seen Hyaline Casts Urine 0-2 0-2 /LPF Complete Blood Count Auto Di ff Reviewed date:05/14/2025 12:05:40 PM Interpretation: Performing Lab:[address] [phone] Notes/Report: White Blood Count 4.5 4.8-10.8 X10*3/uL [...] PROFILE Reviewed date:05/14/2025 11:29:37 AM Interpretation: Performing Lab:[address] [phone] Notes/Report: Iron 66 30-160 mcg/dL Total Iron Binding Capacity 258 228-428 mcg/dL Percent Iron Saturation 26 15-50 % Unsaturated Iron Binding 192 Lipid Panel Reviewed date:05/14/2025 11:29:26 AM Interpretation: Performing Lab:[facility], [address] [place] [phone] Notes/Report: Triglycerides 54 <150 mg/dL Desirable Triglyceride: [...] low results in patients with liver disease. MM tomosynthesis screening B I Reviewed date:09/08/2024 09:55:19 AM Interpretation: Performing Lab: Notes/Report: [facility]'[address] [place] [address] Mammography Report Signed Patient: Delisa Tovar MR#: [id number] : 1960 Acct:[id number] Age/Sex: 64 / F ADM Date: 08/27/24 Loc: HO.MAMMO Attending Dr: Jonny Roman MD Ordering Physician: Jonny Roman MD Results: 1Ne gative Date of Service: 08/27/24 Follow Up: 1 Year From Orig inal Mammogram Procedure(s): MM tomosynthesis screening BI Accession Number(s): [id number] cc: Jonny Roman MD EXAMINATION: MM SCREENING DIGITAL BREAST TOMOSYNTHESIS, BILATERAL CLINICAL INFORMATION: Screening. Asymptomatic. COMPARISON: Mammography: Comparison is made with available priors TECHNIQUE: Digital breast mammography with tomosynthesis is performed in both the craniocaudal and mediolateral oblique views along with computer-aided detection (CAD). FINDINGS: There are scattered areas of fibroglandular density (ACR BI-RADS breast composition Category b). There are no significant masses, abnormal calcifications, or other abnormalities. MM/MM tomosynthesis screening BI IMPRESSION: No mammographic evidence of malignancy. ASSESSMENT: BI-RADS BI-RADS 1 - Negative RECOMMENDATION: Routine annual mammography screening. 1 year F/U This examination should not preclude the clinical evaluation of a suspicious palpable abnormality. This patient's information was entered into a reminder system with a target due date for their next mammogram. Electronically signed by: Mady Seo DO 09/01/2024 01:35 PM EDT Dictated By: Mady Seo DO Signed By: <Electronically signed by Mady Seo DO in OV> 09/01/24 1335 DD/ 1205 TD/TT: 08/27/24 1216 Food Services Director: [address] [place], [place] [address] Mammography Report Signed Patient: Tiesha Tovar MR#: [id number] : 1960 Acct:[id number] Age/Sex: 64 / F ADM Date: 08/27/24 Loc: HO.MAMMO Attending Dr: Jonny Roman MD Ordering Physician: Jonny Roman MD Results: 1Ne gative Date of Service: 08/27/24 Follow Up: 1 Year From Orig inal Mammogram Procedure(s): MM tomosynthesis screening BI Accession Number(s): [id number] cc: Jonny Roman MD EXAMINATION: MM SCREENING DIGITAL BREAST TOMOSYNTHESIS, BILATERAL CLINICAL INFORMATION: Screening. Asymptomatic. COMPARISON: Mammography: Compari son is made with available priors TECHNIQUE: Digital breast mammography with tomosynthesis is performed in both the craniocaudal and mediolateral oblique views along with computer-aided detection (CAD). FINDINGS: There are scattered areas of fibroglandular density (ACR BI-RADS breast composition Category b). There are no significant masses, abnormal calcifications, or other abnormalities. MM/MM tomosynthesis screening BI IMPRESSION: No mammographic evidence of malignancy. ASSESSMENT: BI-RADS BI-RADS 1 - Negative RECOMMENDATION: Routine annual mammography screening. 1 year F/U This examination dl uld not preclude the clinical evaluation of a suspicious palpable abnormality. This patient's information was entered into a reminder system with a target due date for their next mammogram. Electronically bobo d by: Mady Seo DO 09/01/2024 01:35 PM EDT Dictated By: Mady Seo DO Signed By: <Electronically signed by Mady Seo DO in OV> 09/01/24 1335 DD/ 1205 TD/TT: 08/27/24 1216 Food Services Director: Urine Culture Reviewed date:02/15/2025 10:55:17 AM Interpretation: Performing Lab:[facility], [address] [place] [phone] Notes/Report: O:ESCCOL Escherichia coli Urine Culture Quant Urine Culture > 100,000 cfu/mL Ampicillin 4 Cefazolin (Urine) <=1 Cefepime <=0.12 Ceftriaxone <=0.25 Ciprofloxacin <=0.06 Gentamicin <=1 Nitrofurantoin <=16 Trimethoprim/Sulfamethoxa zole <=20 Comprehensive Met. Panel Reviewed date:05/14/2025 12:06:28 PM Interpretation: Performing Lab:[facility], [address] [place] [phone] Notes/Report: Sodium 142 135-145 mmol/L Potassium 3.8 3.3-5.1 mmol/L Chloride 109 96-108 mmol/L Carbon Dioxide 25 22-29 mmol/L Anion Gap 12 12-20 Blood Urea Nitrogen 12 9-16 mg/dL Creatinine 0.60 0.5-1.4 mg/dL Estimated Glomerular Filt Rate > 60 Chronic Kidney Disease: Estimated GFR < 60 mL/min/1.73m2 Severe Kidney Disease: Estimated GFR < 15 mL/min/1.73m2 Glucose Random 92 60-115 mg/dL Calcium 9.2 8.4-10.2 mg/dL Bilirubin Total 0.4 0.0-1.0 mg/dL Aspartate Amino Transferase 21 5-31 U/L Alanine Aminotransferase 16 0-31 U/L Total Protein 6.7 6.5-8.0 g/dL Albumin Level 4.3 3.5-5.0 g/dL Alkaline Phosphatase 65 39-117 U/L Aidan Johnson Reviewed date:05/14/2025 11:28:29 AM Interpretation: Performing Lab:[facility], [address] [place] [phone] Notes/Report: Aidan Johnson See Note Specimen held untested for 24 hours; Call to request Chemistry testing. Reason For Referral No Information Medications Medication SIG (Take, Route, Frequency, Duration) Notes Start Date End Date Status Famotidine 20 MG 1 tablet at bedtime as needed Orally Once a day for 30 day(s) Active Albuterol Sulfate 0.63 MG/3ML 3 ml as needed Inhalation every 6 hrs for 14 days 06/16/2015 Not-Taking KlonoPIN 0.5 MG 0.5 tablet Orally PRN Active Breo Ellipta 200-25 MCG/ACT 1 puff Inhalation Once a day 07/05/2023 Active Gabapentin 300 MG 2 capsule Orally HS Active rOPINIRole HCl 1 MG 1 tablet 1 to 3 hour s before bedtime, also taking 2mg at betime Orally TID Active Albuterol Sulfate HFA 108 (90 Base) MCG/ACT TAKE 2 PUFFS BY MOUTH EVERY 4 HOURS NEEDED 17 for 17 Active Ocuflox 0.3 % as directed Ophthalm ic 2 drops both eyes 4 times per day for 7 days 09/10/2023 Not-Taking Cephalexin 500 MG 1 capsule Orally twi ce a day for 5 days 02/15/2025 Active Ondansetron HCl 4 MG 1 tablet Orally 3 t imes a day as needed a day for 7 days 10/30/2021 Not-Taking Ibuprofen 800 MG 1 tablet with food o r milk as needed Orally Three times a day for 30 Not-Taking Immunizations Vaccine Route Administration Date Status Comme [facility] Flu Vaccine Unknown 03/05/2012 Administered Flu Vaccine Unknown 03/09/2014 Administered [facility] Flu Vaccine Unknown 03/17/2015 Administered pt was give n the vaccine at work. [facility] Fluarix Quadrivalent IM Intramuscular [facility] 12/18/2010 Administered pt was given the vaccine at [facility] [employer]. Fluarix Quadrivalent IM Intramuscular 03/28/2017 Administe red Fluarix Quadrivalent IM Intramuscular 02/25/2019 Adminelizabethe red pt was given the vaccine at [facility] on [facility]. Tetanus Unknown 12/18/2010 Administered Covid Vaccine Unknown 09/24/2020 Administered Moderna SARS-COV-2 Moderna Unknown 10/22/2020 Administered SARS-COV-2 Moderna Unknown 10/22/2020 Administered Fluarix Quadrivalent IM Intramuscular 04/25/2021 Administe red Fluarix Quadrivalent IM Intramuscular 04/25/2021 Administe red SARS-COV-2 Moderna Unknown 05/24/2021 Administered Fluarix Quadrivalent Unknown 04/02/2022 Administered [facility] SARS-COV-2 Moderna Unknown 04/02/2022 Administered [facility] Fluarix Quadrivalent Unknown 04/23/2023 Administered [facility] SARS-COV-2 Moderna Unknown 04/23/2023 Administered [facility] PPSV23 (Pnemovax) Unknown 12/27/2015 Refused Fluarix Quadrivalent Unknown 10/06/2018 Refused PPSV23 (Pnemovax) Unknown 10/06/2018 Refused Tetanus Unknown 12/18/2010 Pending Social History Tobacco Use: Social History Observation [...] to balwinder t Additional Findings: Tobacco User Curren t cigarette smoker, not currently using another [...] is vaping Vapor last s 1 month Patient is vaping Vapor last s 1 month Problems Problem Type SNOMED Code ICD Code Onset Dates Problem Status W/U Status Risk Notes Problem Diverticulitis of colon (185820809) Acute diverticulitis (K57.92) Active confirmed Problem 06043997 Restless leg syndrome (G25.81) Active confirmed Problem 583050666 Diverticulitis (K57.92) Active confirmed Problem Ochoa esophagus (517433832) 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) Active confirmed Problem 015571728 Essential tremor (G25.0) Active confirmed Problem 37019437 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 Problem 586933885 Lumbar disc dise ase (M51.9) Active confirmed Problem 31925515 Smoker (F17.200) Active confirmed Problem 589872590 Gastroesophageal reflux disease without esophagitis (K21.9) Active confirmed Problem 070024645 History of hematuria (Z87.448) Active confirmed Problem 04536667 Other iron deficiency anemia (D50.8) Active confirmed Problem 011866403 Mild intermitten t asthma with acute exacerbation (J45.21) Active confirmed Problem 42690968 Ophthalmic migra 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) Active confirmed Problem 996332078 Anxiety disorder , unspecified type (F41.9) Active confirmed Problem 2284527 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) Active confirmed Problem 70841506 Smoker unmotivat ed to quit (F17.200) Active confirmed Problem Osteopenia (disorder) (261019735) Osteopenia determined by x-ray (M85.80) Active confirmed Problem Adrenal mass (641430697) Adrenal mass (E27.8) Active confirmed Problem 440419491 Adrenal nodule (E27.8) Active confirmed Encounters Encounter Location Date Provider Diagnosis Jonny Roman MD [address] [place] [address] [place] [id number] 02/11/2025 Jonny Roman UTI (urinary tract infection) N39.0 Jonny Roman MD [address] [place] [address] [place] [id number] 05/14/2025 Jonny Roman Blood tests for routine general physical examination Z00.00 and Other iron deficiency anemia D50.8 Jonny Roman MD [address] [place] [address] [place] [id number] 02/15/2025 Jonny Roman Assessments Encounter Date Diagnosis (ICD Code) Assessment Notes Treatment Notes Treatment Clinical Notes Section Notes 02/11/2025 UTI (urinary tract infection) (ICD-10 - N39.0) 05/14/2025 Blood tests for routine general physical examination (ICD-10 - Z00.00) 05/14/2025 Other iron deficiency anemia (ICD-10 - D50.8) Plan Of Treatment Pending Test Test Name Order Date CT ABD & PELVIS WITH CONTRAST 09/27/2022 BONE DENSITY DEXA 05/01/2021 MAMMOGRAM DIGITAL BILATERAL SCREEN 05/01 MAMMOGRAM DIGITAL BILATERAL SCREEN 01/06 US EXTREMITY SOFT TISSUE NON-VASC 2022 Comprehensive [place]. Panel Fast UA ClnCatch+Micro w/rflx Cult 05/14/2025 Next Appt Details Provider Name:Jonny licea, 05/24/2025 10:30:00 AM, [address] [place] [address], Suite [facility], [place], [place], [id number], Insurance Providers Payer Name Payer Address Payer Phone Subscriber Number Group Number Insured Name Patient Relationship to Insured Coverage Start Date Coverage End Date [facility] [address] [address] [place] [address] [phone] [id number] Delisa Tovar Self - patient is the insured Medical (General) History Medical History History ICD Code colonoscopy with hyperplasti c polyp and neg upper endo 2010; endoscopy booked for 11/11/15: colonocopy 2021 repeat in one : yearcolonoscopy 01/01/22, awaiting path: 01/16 colonoscopy , repeat 3-5 yrs based on path hematuria. work up complete with yearly cysto and nephologist adrenal mass benign workup tubular ademoma 2022 no barrets repeat c olonoscopy in 3 years when she took prednisone wit h primidone had hallucinations. can take prednisone with no problems Surgical History Surgery Date(Month/Year) carpel tunnel surgery 09/2012 Arthroscopy, LT Knee w/Partial Medial Me nisectomy (Dr Peraza) 01/2020
--- OUTSIDE RECORDS SUMMARY | 2025-05-14 12:14 | XMS_ITS | Clinical Summary ---
Author Organization [employer] [facility] Prior to 10/24/[address] [place] [address] Care Team Providers Care Handkerchief Sample Clerk Name Role Phone Jonny Roman MD Primary Care Provider Social History Tobacco Use Types Packs/Day Years [...] age to complete this topic Care Teams Handkerchief Sample Clerk Relationship Specialty Start Date End Date Jonny Roman MD [address] [place] [phone] PCP - General Internal Medicine 03/23/20
--- OUTSIDE RECORDS SUMMARY | 2025-05-14 12:14 | XMS_ITS | Encounter Summary ---
Author Organization [facility] Address [address] [place] [address] [place] [phone] Phone Care Team Providers Care City Magistrate Name Role Phone Jonny Roman MD Primary Care Provider Encounter Details Date Type Department Care Team (Late st Contact Info) Description 08/31/2022 Transcribe Orders [facility] Specimen Processing [address] [place] [address] Juan Marie MD [address] [place] [address] Endocrinology, [place] [address] [email or web address] Adrenal mass (Primary Dx) Social History Tobacco [...] EDT) DHEAS 201(H) 9.7 - 159 mcg/dL [facility] 08/31/2022 8:14 AM EDT 08/31/2022 9:27 AM EDT us Juan Marie MD LAB BLOOD ORDERABLES Final Resul t [facility] MED/[facility] [address] [place] [address] documented in this encounter Visit Diagnoses Diagnosis Adrenal mass- Primary Unspecified disorder of adrenal glands documented in this encounter Additional Health Concerns Infection Onset Date Last Indicated Resolved Time CoV-Risk 09/24/2023 09/24/2023 10/05/2023 1:22 AM EDT Assessment Noted Time PHQ-2 Depression Total Score: 0 08/22/19 8:49 AM EDT documented as of this encounter Care Teams City Magistrate Relationship Specialty Start Date End Date Jonny Roman MD [address] [place] [address] [place] [address] PCP - General Internal Medicine 07/06/22 documented as of this encounter Additional Source Comments The information contained in this document represents components of the legal health record. It is not the complete legal health record.[facility]
--- OUTSIDE RECORDS SUMMARY | 2025-05-14 12:15 | XMS_ITS | Encounter Summary ---
Author Organization [facility] Address [address] [place] [phone] Phone Care Team Providers Care Film Masker Name Role Phone Jonny Roman MD Primary Care Provider Encounter Details Date Type Department Care Team (Late st Contact Info) Description 08/29/2022 Transcribe Orders [facility] [address] [address] Unknown, Unknown, Social History Tobacco Use Types [...] documented as of this encounter Care Teams Film Masker Relationship Specialty Start Date End Date Jonny Roman MD [address] [place] [address] [place] [address] PCP - General Internal Medicine 07/06/22 documented as of this encounter Additional Source Comments The information contained in this document represents components of the legal health record. It is not the complete legal health record.[facility]
--- OUTSIDE RECORDS SUMMARY | 2025-05-14 12:15 | XMS_ITS | Clinical Summary ---
Author Organization [facility] Address [address] [place] [address] Phone Care Team Providers Care Metallurgical Tester Name Role Phone Jonny Roman MD Primary Care Provider Allergies Active Allergy Reactions Criticality Noted Date Comments Ferrous Sulfate 09/24/2023 Other Reaction(s): hives Prednisone Hallucinations High 05/03/2022 Other Reaction(s): hallucinations, states when taken with primidone. States she can take prednisone without primidone with no reaction many times without side effects. Primidone Unknown 02/12/2025 Medications albuterol 90 mcg/actuation inhaler 2 puffs [...] 30 Active famotidine (PEPCID) 20 MG tablet Active naproxen (NAPROSYN) 500 MG tablet Take 1 tablet twice a day by oral route with meals for 15 days. 3 Active cyclobenzaprine (FLEXERIL) 10 MG tablet Take 1 tablet 3 times a day by oral route as needed for 10 days. 3 Active Active Problems No known active problems Encounters Date Type Department Care Team Description 02/12/2025 3:20 PM EDT Office Visit [facility] at [address] [address] Leonora Arthur, STEVE Urinary tract infection without hematuria, site unspecified (Primary Dx); Urinary frequency; Dysuria from Last 3 Months Immunizations Immunization Administration Dates Next Due COVID-19 [...] Sign Reading Time Taken Comments Blood Pressure 123/70 02/12/2025 3:17 PM EDT Pulse 86 02/12/2025 3:17 PM EDT Temperature 36.6 C (97.8 F) 02/12/2025 3:17 PM EDT Respiratory Rate 16 02/12/2025 3:17 PM EDT Oxygen Saturation 98% 02/12/2025 3:17 PM EDT Inhaled Oxygen Concentration - - Weight 59 kg (130 lb) 02/12/2025 3:17 PM EDT Height 152.4 cm (5') 09/24/2023 4:48 PM EDT Body Mass Index 25.39 09/24/2023 4:48 PM EDT Plan of Treatment [...] 08/22/2023 08/21/2022 INFLUENZA VACCINE (#1) 2024 , 04/23/2023, 04/02/2022, Additional history exists COVID-19 VACCINE ( season) 2025 04/27/2024, 04/23/2023, 04/23/2023, Additional history exists SCREENING FOR DIABETES 09/23/2026 [...] Procedure Name Priority Date/Time Associated Diagnosis Comments URINE CULTURE Routine 02/12/2025 3:56 PM EDT Dysuria POCT URINE DIPSTICK Routine 02/12/2025 3 :27 PM EDT Urinary frequency BI MAMMOGRAM OUTSIDE (NO INTERPRETATION) Routine 08/10/2021 12:00 AM EDT from Last 3 Months or Most Recently Relevant to Health Maintenance Results * (ABNORMAL) Urine Culture (02/12/2025 3:56 PM EDT) Special Requests None 02/12/2025 3:56 PM EDT [facility] Urine Culture >100,000 colony forming units per mL ESCHERICHIA COLI(A) 02/13/2025 12:06 PM EDT [facility] Urine (Urine) 02/12/2025 3:5 6 PM EDT 02/12/2025 4:59 PM EDT Narrative Organism Antibiotic Method Susceptibility Escherichia coli Ampicillin KYLIE METHOD 4: Susceptible Escherichia coli Ampicillin + Sulbactam KYLIE METHOD <=2: Susceptible Escherichia coli Cefepime KYLIE METHOD <=0.12: Susceptible Escherichia coli Ceftazidime KYLIE METHOD <=0.5: Susceptible Escherichia coli Ceftriaxone KYLIE METHOD <=0.25: Susceptible Escherichia coli Ciprofloxacin KYLIE METHOD <=0.06: Susceptible Escherichia coli Extended Spectrum B-lactamase KYLIE MET HOD Negative Escherichia coli Gentamicin KYLIE METHOD <=1: Susceptible Escherichia coli Levofloxacin KYLIE METHOD <=0.12: Susceptible Escherichia coli Nitrofurantoin KYLIE METHOD <=16: Susceptible Escherichia coli Piperacillin-tazobactam KYLIE METHOD <=4: Susceptible Escherichia coli Trimethoprim/sulfamethoxazole KYLIE MET HOD <=20: Susceptible Escherichia coli Cefazolin(urine) KYLIE METHOD 2: Susceptible Comment: Leonora Arthur [facility] LAB MICROBIOLOGY CULTUR E ORDERABLES Final Result [facility] [address] [place] [address] * (ABNORMAL) POCT Urine Dipstick (Automated) (02/12/2025 3:27 PM EDT) COLOR ORANGE [facility] TURBIDITY Slightly Cloudy [facility] GLUCOSE, POCT 1+(A) Negative [facility] KETONE, POCT 1+(A) Negative [facility] OCCULT BLOOD, POCT 3+(A) Negative [facility] SPECIFIC GRAVITY, POCT <1.005 1.001 - 1.030 [facility] ALBUMIN, POCT 3+(A) Negative [facility] Bili 2+(A) Negative [facility] Urobilinogen >=8.0 <1.0 [facility] NITRITE, POCT Positive(A) Negative [facility] PH, POCT 5.0 5.0 - 8.0 [facility] WBC SCREEN, POCT 3+(A) Negative [facility] 02/12/2025 3:27 PM EDT 02/12/2025 3:29 PM EDT us Leonora Arthur [facility] LAB POCT ENTER/EDIT ORD ERABLES Final Result [facility] [address] [address], [facility] [phone] * Mammogram Outside (No Interpretation) (08/10/2021 12:00 AM EDT) Narrative [facility] - 08/29/2022 10:03 AM EDT This study is for PACS storage only and not for interpretation. us Juan Marie MD IMG OUTSIDE IMAGING W/OUT INTERP RETATION Final Result [facility] from Last 3 Months or Most Recently Relevant to Health Maintenance Insurance [facility] MEDICARE REPLACEMENT MEDICARE REPLACEMENT MEDICARE REPLACEMENT MEDICARE REPLACEMENT [facility] MEDICARE [place] [address] [place] [address] MEDICARE REPLACEMENT Care Teams Metallurgical Tester Relationship Specialty Start Date End Date Jonny Roman MD [address] [place] [address] [place] [address] (work) PCP - General Internal Medicine 07/06/22 Additional Source Comments The information contained in this document represents components of the legal health record. It is not the complete legal health record.[facility]
== END 2025-05-14 10:35 | disposition home or self-care (01) ==
LOC: HO.LNP 10:34
PROVIDERS: Visit Provider Internal Medicine
DX: Z00.00 Encounter for general adult medical examination without abnormal findings (principal); D50.8 Other iron deficiency anemias; Z13.6 Encounter for screening for cardiovascular disorders
CPT/HCPCS: 80053; 80061; 81001; 83540; 85025